=== PATIENT | female | born 1950 | race Caucasian/White ===

== ENCOUNTER 2021-09-27 14:48 | Outpatient (REF) | payer MEDICARE, SELFPAY ==
--- NOTE | ~2021-09-27 | CT_ITS ---
EXAMINATION: CT CHEST SCREENING CLINICAL INFORMATION: 53 pack year history. Current smoker. COMPARISON: Previous chest x-ray February [address] November 2013. TECHNIQUE: Multidetector volumetric CT imaging of the chest is performed without contrast using low dose technique. Additional 2D coronal and sagittal reformatted images and axial 3D maximum intensity projection (MIP) images are generated on the CT workstation. This CT examination was performed using dose optimization techniques as appropriate, variously including the following: *Automated exposure control *Adjustment of mA and/or kV according to patient size (this includes techniques or standardized protocols for targeted exams where dose is matched to indication/reason for exam; i.e. extremities or head) *Use of iterative reconstruction technique DLP: 43 mGy-cm FINDINGS: LUNGS: There is evidence of mild paraseptal emphysema. There are postsurgical changes to the left upper lobe. There is a 4 mm left upper lobe nodule axial image 131 series 5. There is a 4 mm right upper lobe nodule axial image 1:30 series 5. These are new from 2013 exam. There is a 3 mm peripheral or subpleural right lower lobe nodule axial image 376 series 5 that is stable. There is an area of increased groundglass attenuation and cystic change in the posterior segment of the right upper lobe adjacent to the major fissure measuring approximately 1.5 x 2 cm axial image 172 series 5. This is similar to November 2013 exam. The remaining areas of increased groundglass attenuation are no longer seen. There is scarring or subsegmental atelectasis in the right middle lobe and in the lingula at the lung bases. MEDIASTINUM: The left lobe of the thyroid gland is prominent and there are calcifications. This is similar in size to November 2013 exam. Calcifications appear increased. There are small mediastinal lymph nodes. No enlarged lymph nodes are seen. There is coronary artery calcification. The heart does not appear enlarged. The thoracic aorta is normal in caliber. There is no pericardial effusion. PLEURA: There is no pleural effusion. No pleural mass or thickening. AXILLA: No lymphadenopathy. UPPER ABDOMEN: There is evidence of atherosclerotic disease. OSSEOUS STRUCTURES: Degenerative changes of the spine. CT/CT lung screening IMPRESSION: Emphysema. Postsurgical changes to the left upper lobe. Two new upper lobe 4 mm nodules. Stable 3 mm peripheral or subpleural right lower lobe nodule. Stable area of groundglass attenuation and cystic change in the posterior segment of the right upper lobe adjacent to the major fissure. Prominent left lobe of the thyroid gland with increasing calcification. ASSESSMENT: Lung-RADS category 2S. RECOMMENDATION: Annual low-dose chest CT follow-up recommended. Follow-up thyroid ultrasound recommended.
== END 2021-09-27 14:49 | disposition home or self-care (01) ==
LOC: HO.CT 14:48
PROVIDERS: Visit Provider Physician Assistant Medical
DX: F17.210 Nicotine dependence, cigarettes, uncomplicated (principal); Z71.6 Tobacco abuse counseling
CPT/HCPCS: 71271; G0296

== ENCOUNTER 2021-10-30 16:21 | Emergency (ER) | payer MEDICARE, SELFPAY ==
--- NOTE | ~2021-10-30 | CT_ITS ---
EXAMINATION: CT ANGIOGRAM HEAD CT ANGIOGRAM NECK CLINICAL INFORMATION: Carotid stenosis. Hypertension. COMPARISON: CT neck from 11/05/2012. TECHNIQUE: Initial noncontrast vault attendant imaging of the head and neck was performed. Noncontrast head CT was also performed. Test bolus sequences followed by intravenous administration 70 mL of Omnipaque 350. Helical imaging was performed in the axial plane from the aortic arch to the skull vertex. Delayed postcontrast imaging of the head was also performed. The data was processed at the development technologist's workstation for generation of MIP sequences. Angled MIPs and volume rendered reformatted images were also generated at an offline 3D workstation. Stenoses are assessed in accordance with NASCET criteria unless otherwise indicated. This CT examination was performed using dose optimization techniques as appropriate, variously including the following: *Automated exposure control. *Adjustment of mA and/or kV according to patient size (this includes techniques or standardized protocols for targeted exams where dose is matched to indication/reason for exam; i.e. extremities or head). *Use of iterative reconstruction technique. DLP: 2127 mGy-cm FINDINGS: CT Head: There is no evidence of acute intracranial hemorrhage or edematous territorial infarction. A few foci of hypoattenuation in the periventricular and deep white matter are consistent with mild microangiopathy. Hart-white matter differentiation is preserved. Proportional prominence of the ventricles and sulcal spaces. No evidence for obstructive hydrocephalus. No abnormal mass effect or midline shift. No extra-axial fluid collections. No pathologic intra-axial enhancement or regional oligemia. No acute soft tissue or osseous abnormalities. Mild mucosal thickening of the paranasal sinuses. The mastoid air cells and middle ear cavities are clear. CT Neck: A heterogeneous 4 cm lesion along the inferior pole of the left thyroid lobe with internal coarse calcifications has mildly increased in size compared to 2013 (previously 3.5 cm). The remaining cervical soft tissues are within normal limits. Moderate degenerative disc disease at C6-C7. Mild degenerative disc disease at all additional cervical levels. CT Upper Chest: The visualized lung apices are notable for moderate paraseptal and centrilobular emphysema. Neck CTA: Aortic Arch: Moderate concentric hypoattenuating wall thickening of the aortic arch. This is progressed since 2013 with increasing irregular wall calcification and multifocal small atheromatous ulcerations. Two vessel branching pattern of the arch with left common carotid artery arising from the brachiocephalic trunk. Great Vessel Origins: There is moderate concentric hypoattenuating wall thickening of the proximal great vessels. No overt stenosis of the brachiocephalic trunk. There is 70% stenosis of the origin of the left subclavian artery. Beyond the stenosis, there is eccentric lipid rich atheromatous disease within the lateral wall of the left subclavian artery with a moderate wall ulceration. Right Common Carotid Artery: Moderate concentric hypoattenuating wall thickening with scattered wall calcifications. No overt flow-limiting stenosis or occlusion. Cervical Right Internal Carotid Artery: Retropharyngeal course. Calcific atherosclerotic disease of the carotid bulb and proximal internal carotid artery causing less than 50% stenosis. Left Common Carotid Artery: Moderate concentric hypoattenuating wall thickening with scattered wall calcifications. No overt flow-limiting stenosis or occlusion. Cervical Left Internal Carotid Artery: Retropharyngeal course. Calcific atherosclerotic disease of the carotid bulb and proximal internal carotid artery causing less than 50% stenosis. Cervical Right Vertebral Artery: Calcific atherosclerotic disease causes mild stenosis of the origin. No additional focal stenosis or occlusion. Cervical Left Vertebral Artery: Dominant. No focal stenosis or occlusion. Brain CTA: Intracranial Internal Carotid Arteries: Calcific atherosclerotic disease of the intracranial internal carotid arteries without occlusion or flow-limiting stenosis. Right Anterior Cerebral Artery: Normal A1 segment. Normal opacification of the distal SHRUTI segments. Left Anterior Cerebral Artery: Normal A1 segment. Normal opacification of the distal SHRUTI segments. Anterior Communicating Artery: Normal. Right Middle Cerebral Artery: Normal M1 segment of the MCA without focal stenosis or occlusion. Mild irregularities of the distal MCA branches. Otherwise, normal arborization of the distal segments. Left Middle Cerebral Artery: Normal M1 segment of the MCA without focal stenosis or occlusion. Mild irregularities of the distal MCA branches. Otherwise, normal arborization of the distal segments. Right Vertebral Artery: The V4 segment largely terminates as the posterior inferior cerebellar artery. The vertebral artery is threadlike beyond the takeoff of the PICA. Left Vertebral Artery: Normal V4 segment. Normal opacification of the proximal segments of the posterior inferior cerebellar artery. Basilar Artery: Normal without focal stenosis or occlusion. Normal appearance of the proximal superior cerebellar arteries. Right Posterior Cerebral Artery: The P1 segment is diminutive. origin of the CAR SALTER with robust opacification of the posterior communicating artery. Mild irregular stenoses of the distal CAR SALTER segments. Left Posterior Cerebral Artery: Mild irregular stenoses of the P1 and P2 segment without flow-limiting stenosis or occlusion. Mild irregular stenoses of the distal CAR SALTER segments. Normal opacification of the superior sagittal, straight, transverse, and sigmoid sinuses. CT/CT angio head neck IMPRESSION: 1. No evidence of acute intracranial hemorrhage or edematous territorial infarction. Mild underlying migraine angiopathy and generalized cerebral volume loss. 2. CTA of the head and neck without proximal occlusion. 3. There is moderate concentric hypoattenuating wall thickening of the aortic arch, carotid arteries, and subclavian arteries. This change demonstrates scattered coarse wall calcifications consistent with at least a degree of atherosclerotic disease. However, it be difficult to exclude other superimposed vasculitides/vasculopathies given the overall appearance. 4. The underlying vascular disease leads to 70% stenosis of the origin of the left subclavian artery. No additional flow-limiting stenoses or proximal occlusions. There are less than 50% stenoses of the carotid arteries bilaterally. 5. Mild multifocal irregular narrowings of the distal branches of the MCAs and strickler attendant. 6. There is a 4 cm heterogeneous lesion in the left thyroid lobe that is mildly increased in size compared to 2013. If not previously evaluated, this could be further characterized with thyroid ultrasound.
[2021-10-30 18:11] VITALS: BP 209/86; PULSE 99; RESP 17; TEMP 36.5; O2SAT 98; BMI 26.2
--- NOTE | 2021-10-30 18:17 | ECG_ITS ---
Test Reason : HYPERTENSION Blood Pressure : / mmHG Vent. Rate : 089 BPM Atrial Rate : 089 BPM P-R Int : 160 ms QRS Dur : 094 ms QT Int : 384 ms P-R-T Axes : 072 067 038 degrees QTc Int : 467 ms Normal sinus rhythm Possible Left atrial enlargement Nonspecific ST and T wave abnormality Abnormal ECG When compared with ECG of 28-FEB-2016 09:00, ST now depressed in Lateral leads Referred By: Generic ED Physician Electronically Signed By:KIA SIMMS MD
[2021-10-30 18:26] LABS: MANUAL DIFF FLAG NO
[2021-10-30 18:41] LABS: Anion Gap 13 (12-20); Blood Urea Nitrogen 22 mg/dL (9-16); Carbon Dioxide 28 mmol/L (22-29); Chloride 103 mmol/L (96-108); Creatinine Clr Calc Pharmacy 46.3; Estimated Glomerular Filt Rate > 60; Glucose Random 95 mg/dL (60-115); Potassium 4.2 mmol/L (3.3-5.1); Sodium 140 mmol/L (135-145)
[2021-10-30 18:48] LABS: Basophils Absolute Auto 0.1 X10*3/uL (0.0-0.2); Basophils Percent Auto 0.5 % (0-2); Eosinophils Absolute Auto 0.2 X10*3/uL (0.0-0.4); Eosinophils Percent Auto 1.6 % (0-4); Hemoglobin 13.6 g/dl (12.0-16.0); Imm Gran Abs Auto 0.08 X10*3/uL (0.00-0.03); Imm Gran Pct Auto 0.6 % (0.0-0.4); Lymphocytes Percent Auto 23.5 % (20-40); Mean Corpuscular HGB Conc 33.2 g/dl (31.0-35.0); Mean Corpuscular Hemoglobin 31.1 pg (27.0-33.0); Mean Corpuscular Volume 93.6 fL (80.0-98.0); Mean Platelet Volume 9.6 fL (9.4-12.3); Monocytes Absolute Auto 0.9 X10*3/uL (0.1-1.2); Monocytes Percent Auto 7.1 % (2-11); Neutrophils Absolute Auto 8.4 x10*3/uL (2.0-8.3); Neutrophils Percent Auto 66.7 % (45-73); Platelet Count 321 X10*3/uL (160-400); Red Blood Count 4.38 X10*6/uL (4.20-5.50); Red Cell Distribution Width 13.2 % (11.0-16.0); Troponin-I High Sensitivity < 3.5 ng/L (<3.5-17.0); White Blood Count 12.7 X10*3/uL (4.8-10.8)
[2021-10-30 18:58] LABS: Prothrombin Time 11.7 SEC (9.9-13.0)
[2021-10-30 19:01] LABS: Partial Thromboplastin Time 37.9 SEC (24.1-38.0)
[2021-10-30 19:09] VITALS: BP 164/60; PULSE 85; RESP 14; O2SAT 97
--- NOTE | 2021-10-30 19:39 | ED.GENADULT ---
HPI - General Adult General Chief complaint: General Medical Stated complaint: numbness of R side of face Time Seen by Provider: 10/30/21 18:33 Source: patient Mode of arrival: ambulatory Limitations: no limitations History of Present Illness HPI narrative: 70 year old female with history of GERD, depression, hyperlipidemia, living, hypercholesterolemia, unknown carotid artery stenosis presents to ED for multiple weeks of left facial numbness and at times blurry vision. Patient denies ever having any black her in covering of the eye or loss of vision. Patient denies ever having slurred speech, facial droop, dizziness, or paralysis of extremities. Today patient's blood pressure was elevated so she called her primary care clinic and they told her to come to the ED. patient blood pressure has systolic over 200. Presently patient is asymptomatic. Patient had no symptoms today. Related Data Allergies Allergy/AdvReac Type Severity Reaction Status Date / Time No Known Allergies Allergy Mild NOT Verified 10/30/21 18:16 APPLICABLE Review of Systems Review of Systems: Left-sided numbness and blurry vision of the eyes the past couple of weeks. No new symptoms. Yes all other systems are reviewed and are negative [facility] Past Medical History Medical History (Updated 10/31/21 @ 00:01 by Syeda Lopez) Depression GERD (gastroesophageal reflux disease) History of COVID-19 (~2020) Hypercholesterolemia Hyperlipidemia IFG (impaired fasting glucose) Osteopenia (~2003) Paraseptal emphysema Personal history of nicotine dependence Vitamin D deficiency Surgical History (Updated 09/27/21 @ 14:39 by Cheli Eagle PA-C) History of colonoscopy History of esophagogastroduodenoscopy (EGD) History of lung biopsy History of tubal ligation Family History Family History (Updated 08/15/21 @ 13:31 by Cheli Eagle PA-C) Father CVA (cerebral vascular accident) Mother DM2 (diabetes mellitus, type 2) Social History Social History Advance Directives: No Advance Directives Information Provided: No Physical Exam ED Vital Signs: Vital Signs - 24 hr 10/30/21 18:11 10/30/21 19:09 10/30/21 20:27 Temperature 97.7 F Pulse Rate 99 85 80 Respiratory Rate 17 14 12 Blood Pressure 209/86 H 164/60 H 139/48 L Pulse Oximetry 98 97 98 10/30/21 21:58 Temperature 98.2 F Pulse Rate 74 Respiratory Rate 12 Blood Pressure 163/70 H Pulse Oximetry 96 BMI result Body Mass Index 26.2 Const General: cooperative, healthy appearing, comfortable, no acute distress, well developed, alert, awake and Physically active Orientation/consciousness: oriented to time and patient oriented x3 [facility] Head: Yes normal to inspection, Yes No palpable skull fracture present, Yes normocephalic, Yes atraumatic and No abrasion Eyes General: appearance normal, both eyes and all related structures Neck Neck: Yes normal visual inspection, Yes full ROM, Yes no lymphadenopathy, Yes no meningeal signs, Yes trachea midline, Yes supple, No anterior neck swelling and No tender Chest Chest palpation & inspection: normal inspection of the chest and normal palpation of entire chest wall Resp Effort & Inspection: normal respiratory effort and able to speak in complete sentences Auscultation: clear to auscultation bilaterally Cardio Jugular venous distension: no JVD Heart sounds: S1 normal heart sound present and S2 normal heart sound present GI Inspection: Yes normal to inspection and No abdominal wall ecchymosis Palpation (GI): Soft to palpation, not firm, nontender, no guarding and not rigid General: No CVA tenderness and Yes no CVA tenderness Back/Spine/Pelvis Back: no CVA tenderness and No CVA tenderness Skin General skin exam: no rashes or lesions noted and elasticity normal Neuro Other: Negative facial droop. Negative slurred speech. All extremities equal strength/+. [id number] rapid hand movement intact. Negative Romberg. Negative pronator drift. General: oriented to time, patient oriented x3, gait normal, no meningeal signs and CN's II-XI intact bilaterally Cranial nerves: Yes CN's II-XII intact bilaterally NIH Stroke Scale Internal: Initial- Upon Arrival Level of Consciousness: Alert Level of Consciousness Questions: Answers both questions correctly Level of Consciousness Commands: Performs both tasks correctly Best Gaze: Normal Visual: No visual loss Facial Palsy: Normal Motor Arm (Right): No drift Motor Arm (Left): No drift Motor Leg (Right): No drift Motor Leg (Left): No drift Limb Ataxia: Absent Sensory: Normal Best Language: No aphasia Dysarthia: Normal Extinction and Inattention: No abnormality Score: 0 Course Course Course Narrative: Patient presently asymptomatic. Blood pressure over 200. Labetalol ordered. Will do a head CT scan although patient having symptoms for weeks. CT scan will be done due to elevated blood pressure. Also will do CT due to patient states history of carotid stenosis. Patient is on metoprolol and states for irregular her BP and not high blood pressure. Patient states her blood pressure is usually 120 and no diagnose history of high blood pressure. EKG shows normal sinus rhythm. Reevaluation(s) Reevaluation #1: First troponin negative. Blood pressure improved without any medical intervention. labetolol was not given. Patient neuro exam is intact. Time: 20:02 Reevaluation #2: Unable to access old EKGs in our system. Patient's primary care provider is Koko Montgomery who is affiliated with [employer] and is in [facility] and the clinic is closed. Patient denies any cardiac symptoms Time: 20:40 Reevaluation #3: Neck CTA shows no acute occlusion. It shows just chronic carotid stenosis less than 50%. Also left subclavian artery stenosis 70%. Patient has no dizziness. troponin is negative. Patient presently is asymptomatic and sleeping comfortably in bed. Patient states no chest pain or shortness of breath. Patient does not have any neuro symptoms. NIH score 0. Patient informed to follow-up primary care provider. Patient given copy of labs and imaging. Case discussed with Dr. Panda who agreed with plan. Time: 23:36 Medical Decision Making MDM Narrative Medical decision making narrative: Hypertension Lab Data Result diagrams: 10/30/21 18:21 10/30/21 18:21 Labs: Lab Results 10/30/21 10/30/21 10/30/21 Range/Units 18:21 18:21 18:21 WBC 12.7 H (4.8-10.8) X10*3/uL RBC 4.38 (4.20-5.50) X10*6/uL Hgb 13.6 (12.0-16.0) g/dl Hct 41.0 (37.0-47.0) % MCV 93.6 (80.0-98.0) fL MCH 31.1 (27.0-33.0) pg MCHC 33.2 (31.0-35.0) g/dl RDW 13.2 (11.0-16.0) % Plt Count 321 (160-400) X10*3/uL MPV 9.6 (9.4-12.3) fL Immature Gran % (Auto) 0.6 H (0.0-0.4) % Neut % (Auto) 66.7 (45-73) % Lymph % (Auto) 23.5 (20-40) % [place] % (Auto) 7.1 (2-11) % Eos % (Auto) 1.6 (0-4) % Baso % (Auto) 0.5 (0-2) % Lymph # (Auto) 3.0 (1.2-4.9) X10*3/uL [place] # (Auto) 0.9 (0.1-1.2) X10*3/uL Eos # (Auto) 0.2 (0.0-0.4) X10*3/uL Baso # (Auto) 0.1 (0.0-0.2) X10*3/uL Abs Immat Gran (auto) 0.08 H (0.00-0.03) X10*3/uL Absolute Neuts (auto) 8.4 H (2.0-8.3) x10*3/uL Absolute Nucleated RBC 0.000 (0.0-0.012) X10*3/uL Nucleated RBC % (auto) 0.0 (0.0-0.2) /100WBC PT (9.9-13.0) SEC INR (0.9-1.1) APTT (24.1-38.0) SEC Sodium 140 (135-145) mmol/L Potassium 4.2 (3.3-5.1) mmol/L Chloride 103 (96-108) mmol/L Carbon Dioxide 28 (22-29) mmol/L Anion Gap 13 (12-20) BUN 22 H (9-16) mg/dL Creatinine 0.87 (0.5-1.4) mg/dL Estim Creat Clear Calc 46.3 Estimated GFR > 60 Random Glucose 95 (60-115) mg/dL Calcium 10.0 (8.4-10.2) mg/dL Troponin I High Sens < 3.5 (<3.5-17.0) ng/L 10/30/21 10/30/21 Range/Units 18:44 21:21 WBC (4.8-10.8) X10*3/uL RBC (4.20-5.50) X10*6/uL Hgb (12.0-16.0) g/dl Hct (37.0-47.0) % MCV (80.0-98.0) fL MCH (27.0-33.0) pg MCHC (31.0-35.0) g/dl RDW (11.0-16.0) % Plt Count (160-400) X10*3/uL MPV (9.4-12.3) fL Immature Gran % (Auto) (0.0-0.4) % Neut % (Auto) (45-73) % Lymph % (Auto) (20-40) % [place] % (Auto) (2-11) % Eos % (Auto) (0-4) % Baso % (Auto) (0-2) % Lymph # (Auto) (1.2-4.9) X10*3/uL [place] # (Auto) (0.1-1.2) X10*3/uL Eos # (Auto) (0.0-0.4) X10*3/uL Baso # (Auto) (0.0-0.2) X10*3/uL Abs Immat Gran (auto) (0.00-0.03) X10*3/uL Absolute Neuts (auto) (2.0-8.3) x10*3/uL Absolute Nucleated RBC (0.0-0.012) X10*3/uL Nucleated RBC % (auto) (0.0-0.2) /100WBC PT 11.7 (9.9-13.0) SEC INR 1.0 (0.9-1.1) APTT 37.9 (24.1-38.0) SEC Sodium (135-145) mmol/L Potassium (3.3-5.1) mmol/L Chloride (96-108) mmol/L Carbon Dioxide (22-29) mmol/L Anion Gap (12-20) BUN (9-16) mg/dL Creatinine (0.5-1.4) mg/dL Estim Creat Clear Calc Estimated GFR Random Glucose (60-115) mg/dL Calcium (8.4-10.2) mg/dL Troponin I High Sens 7.7 D (<3.5-17.0) ng/L ECG Data Interpretation: Normal sinus rhythm. Reticular rate 89. Pr interval 160. QRS 94. QTC 467. Negative STEMI Discharge Plan Discharge Clinical Impression: Hypertension Patient Disposition: Home, Self-Care Instructions: Hypertension in the Older Adult (ED) Additional Instructions: Your CT scan of the head came back negative for stroke. CT scan the day of the neck does not show any acute artery occlusion that needs intervention. Your electrolytes and kidney function are normal. Presenting EKG and blood work not showing heart attack. You will be discharged with copies of labs and imagings. Please follow-up with your primary care provider. Return to the ED immediately for slurred speech, facial droop, paralysis of extremities, loss of vision, dizziness, headache, chest pain, shortness of breath, nausea, vomiting, or any other concerning symptoms. You are already taking metoprolol please contact your medical provider for further management of high blood pressure. Interventions: ED Discharge Assessment Last Done: 10/30/21 23:56 Discharge Date/Time: 10/30/21 23:59 Print Language: Turkmen
[2021-10-30] MEDS: iohexoL 350 MG/ML 100 ML INFUS..BTL IV (19:57)
[2021-10-30 20:27] VITALS: BP 139/48; PULSE 80; RESP 12; O2SAT 98
[2021-10-30 21:58] VITALS: BP 163/70; PULSE 74; RESP 12; TEMP 36.8; O2SAT 96
[2021-10-30 22:27] LABS: Troponin-I High Sensitivity 7.7 ng/L (<3.5-17.0)
== END 2021-10-30 23:59 | disposition home or self-care (01) ==
PROVIDERS: Physician Assistant; Emergency Provider Emergency Medicine Emergency Medical Services; PCP Internal Medicine
DX: I10 Essential (primary) hypertension (principal); R20.0 Anesthesia of skin; I77.1 Stricture of artery; Z79.899 Other long term (current) drug therapy
CPT/HCPCS: 36415; 70496; 70498; 80048; 84484; 85025; 85610; 85730; 93005; 96374; 99284; Q9967

== ENCOUNTER 2021-11-19 09:19 | Outpatient (REF) | payer MEDICARE, SELFPAY ==
--- NOTE | ~2021-11-19 | MR_ITS ---
MRI OF THE BRAIN WITHOUT IV CONTRAST INDICATION: Left-sided facial numbness. COMPARISON: CTA head and neck 10/30/2021. TECHNIQUE: Multiplanar multisequence MR imaging of the brain was obtained without IV contrast. FINDINGS: There is no hydrocephalus, extra-axial surface collection, or herniation. There is mild chronic microangiopathy. The major flow voids at the skull base are preserved. There is no acute infarct on diffusion-weighted imaging. There is no intracranial hemorrhage on the gradient recalled echo acquisition. The midline structures are normal. The cerebellar tonsils are normally positioned. The cerebellum and brainstem are normal. The craniocervical junction is normal. Osseous marrow signal intensity is homogenous. The visualized soft tissues are unremarkable. MR/MR head/brain wo con IMPRESSION: No acute intracranial findings. No acute infarcts. Mild chronic microangiopathy.
== END 2021-11-19 09:20 | disposition home or self-care (01) ==
LOC: HO.MRI 09:19
PROVIDERS: Visit Provider Internal Medicine
DX: R20.0 Anesthesia of skin (principal)
CPT/HCPCS: 70551

== ENCOUNTER 2022-03-10 07:30 | Day surgery (SDC) | payer MEDICARE, SELFPAY ==
[2022-03-10 07:37] VITALS: BMI 24.2
[2022-03-10 08:00] VITALS: BP 134/63; PULSE 74; RESP 16; TEMP 36.3; O2SAT 99
[2022-03-10] MEDS: Lactated Ringers 1,000 ML 50 ML IVCONT (08:07)
--- NOTE | 2022-03-10 08:13 | P.CONAN_ITS ---
HPI - Anesthesia Eval Consult details Narrative: 71 yo female patient for colonoscopy PMFSH Active Problems Active Problems: All Active Problems (Updated 03/10/22 @ 07:45 by Shikha Ibrahim RN) Restrictive lung disease (Acute) Enlarged thyroid gland (Acute) Personal history of nicotine dependence (Acute) Paraseptal emphysema (Acute) Past Medical History Medical History Depression GERD (gastroesophageal reflux disease) History of COVID-19 (~2020) HTN (hypertension) Hypercholesterolemia Hyperlipidemia IFG (impaired fasting glucose) Interstitial lung disease Osteopenia (~2003) Paraseptal emphysema Personal history of nicotine dependence Vitamin D deficiency Family History Family History Father CVA (cerebral vascular accident) Mother DM2 (diabetes mellitus, type 2) Family history of problems with anesthesia: No Surgical History Surgical History History of colonoscopy History of esophagogastroduodenoscopy (EGD) History of lung biopsy History of tubal ligation Hx of dilation and curettage History of Problems with Anesthesia: No Social History Social History (Updated 03/10/22 @ 08:22 by Rebekah He MD) Patient Tobacco Use Status: Current everyday Tobacco user Tobacco use type: Cigarette Cigarettes Per Day: 15 Smoked in Last 30 Days: Yes Use of substances other than those prescribed or required for medical reasons: No Are you DNR?: No Advance Directives: No Advance Directives Information Provided: Yes Meds Allergies Allergy/AdvReac Type Severity Reaction Status Date / Time simvastatin Allergy Unknown Verified 03/10/22 07:51 sulfamethoxazole Allergy Unknown Verified 03/10/22 07:51 [From Bactrim] trimethoprim [From Bactrim] Allergy Unknown Verified 03/10/22 07:51 Active Medications: Current Medications Lactated Ringer's (Lr) 1,000 mls @ 50 mls/hr IVCONT .Q20H HRASHA Last Admin: 03/10/22 08:07 Dose: 50 mls/hr Ondansetron HCl (Ondansetron Hcl 4 Mg/2 Ml Vial) 4 mg IVPUSH ONCE PRN PRN Reason: Nausea and Vomiting Sodium Biphosphate/Sodium Phosphate (Sodium Phosphate,[place]-Dibasic 133 Ml Enema) 133 ml CA ONCE PRN PRN Reason: Poor Colonoscopy Prep Results Home Medications Medication Instructions Recorded Confirmed Last Taken Type aspirin 81 mg tablet,delayed 81 mg PO DAILY 03/04/22 03/04/22 03/08/22 History release calcium carbonate 500 mg calcium 500 mg PO DAILY 03/04/22 03/04/22 Unknown History (1,250 mg) chewable tablet cholecalciferol (vitamin D3) 25 25 mcg PO DAILY 03/04/22 03/04/22 Unknown History mcg (1,000 unit) capsule (Vitamin D3) cyclosporine 0.05 % eye drops in a 1 drp ophthalmic (eye) Q12H 03/04/22 03/04/22 Unknown History dropperette (Restasis) fluoxetine 20 mg capsule 1 cap PO DAILY 03/04/22 03/04/22 03/10/22 06:30 History fluticasone 113 mcg-salmeterol 14 1 puff inhalation BID 03/04/22 03/04/22 03/10/22 06:30 History mcg/actuation breath activated powdr hydrochlorothiazide 12.5 mg tablet 12.5 mg PO DAILY 03/04/22 03/04/22 Unknown History metoprolol succinate 25 mg 1 tab PO DAILY 03/04/22 03/04/22 03/10/22 06:30 History tablet,extended release 24 hr omeprazole 20 mg capsule,delayed 1 cap PO DAILY 03/04/22 03/04/22 03/10/22 06:30 History release Exam Exam Date and Time: March 10, 2022812 Height,Weight and Vital Signs: Height 4 ft 11 in Weight 54.431 kg Last Vital Signs Temp 97.3 F 03/10/22 08:00 Pulse 74 03/10/22 08:00 Resp 16 03/10/22 08:00 BP 134/63 03/10/22 08:00 Pulse Ox 99 03/10/22 08:00 O2 Del Method 03/10/22 08:00 Airway Mallampati Class: I TM Dist: >3cm Neck ROM: Full Loose/Missing/Broken Teeth: Yes (Some missing ) Heart: RRR Lungs: CTAB Assessment and Plan Assessment Anesthesia Assessment: Anesthesia Plan Discussed and Chart Reviewed Final Anesthetic Review Family History of Problems with Anesthesia: No History of Problems with Anesthesia: No NPO: Yes ASA Class: III Final Preanesthetic Review: No Changes in Pt Med Stat, Meds/Allgs Chart Reviewed, Consent Obtained/Reviewed and Anes Risks/Benef Reviewed Patient Risk: Intermediate Procedure Risk: Low Assessment/Block/Sedation in SS: Assess/Block/Sedation-SS Anesthetic Plan Anesthetic Plan: MAC: Disposition: Standard PACU
[2022-03-10 09:33] VITALS: BP 115/54; PULSE 78; RESP 16; TEMP 36.2; O2SAT 97
--- NOTE | 2022-03-10 09:36 | P.BOP_ITS ---
Brief Operative Note Date of Service: 03/10/22 Pre-op diagnosis: Screening Post-op diagnosis: other (Diverticulosis) Procedure: Colonoscopy to the cecum and TI Surgeon: Paul Hdez Anesthesia: MAC Was an Knife Setter Grinder Machine used for this Procedure?: No Estimated blood loss (mL): 0 Pathology: none sent Condition: stable Disposition: PACU
[2022-03-10 09:48] VITALS: BP 141/60; PULSE 73; RESP 18; TEMP 36.2; O2SAT 98
--- NOTE | 2022-03-10 21:30 | OP_ITS ---
SURGEON: Paul Hdez MD INDICATIONS: The patient presents for evaluation of colorectal cancer screening. Full consent has been obtained from her for this, including risks of bleeding and perforation. PREOPERATIVE DIAGNOSIS: Colorectal cancer screening. POSTOPERATIVE DIAGNOSIS: PROCEDURE PERFORMED: Colonoscopy to the cecum and terminal ileum. ESTIMATED BLOOD LOSS: COMPLICATIONS: ANESTHESIA: Medication used; monitored anesthesia care. ASSISTANTS: SPECIMENS: POSTOPERATIVE DIAGNOSES: Colorectal cancer screening, diverticulosis, and internal hemorrhoids. DESCRIPTION OF PROCEDURE: The patient was placed in the left lateral decubitus position. The digital rectal exam revealed no abnormalities. The Olympus video pediatric colonoscope was entered into the rectum and advanced easily to the cecum. Once in the cecum, I did identify normal-appearing cecal pouch with appendiceal orifice and a normal-appearing ileocecal valve. The terminal ileum was cannulated and appeared normal. The scope withdrawn back in the colon. The entire cecum and ileocecal valve appeared normal. Scope was then slowly withdrawn assessing all mucosal surfaces carefully. Preparation was excellent. I did not visualize any sign of polyps, colitis, nor angiodysplasia. There was a moderate amount of sigmoid diverticulosis. In the rectum, scope was retroflexed visualizing internal hemorrhoids, but no other pathology. The rectal mucosa appeared normal. The scope was straightened and withdrawn from the patient. She tolerated the procedure well and was returned to the recovery area in stable condition. IMPRESSION: 1. Diverticulosis. 2. Internal hemorrhoids. PLAN: Given the negative exam and her age, I do not think she will need any further screening colonoscopies in the future. She will otherwise see me on a p.r.n. basis. She was advised that she could resume her aspirin today. MD EVERETT Adams/LETITIA / [id number] MTDD
== END 2022-03-10 10:36 | disposition home or self-care (01) ==
PROVIDERS: PCP Internal Medicine; Visit Provider Internal Medicine
PROC: 0DJD8ZZ Inspection of Lower Intestinal Tract, Via Natural or Artificial Opening Endoscopic (ICD-10-PCS; CPT 45378; principal; 2022-03-10 08:30)
DX: Z12.11 Encounter for screening for malignant neoplasm of colon (principal); K57.30 Diverticulosis of large intestine without perforation or abscess without bleeding; K64.8 Other hemorrhoids; K21.9 Gastro-esophageal reflux disease without esophagitis; I10 Essential (primary) hypertension; J44.9 Chronic obstructive pulmonary disease, unspecified; I49.9 Cardiac arrhythmia, unspecified; Z79.82 Long term (current) use of aspirin; Z79.51 Long term (current) use of inhaled steroids; Z79.899 Other long term (current) drug therapy; Z88.8 Allergy status to other drugs, medicaments and biological substances; F17.210 Nicotine dependence, cigarettes, uncomplicated
CPT/HCPCS: G0121

== ENCOUNTER 2022-10-22 12:41 | Outpatient (REF) | payer MEDICARE, SELFPAY ==
--- NOTE | ~2022-10-22 | CT_ITS ---
EXAMINATION: CT CHEST SCREENING CLINICAL INFORMATION: Current smoker. 60 pack year history. COMPARISON: Previous chest CT scans most recent September 2021 TECHNIQUE: Multidetector volumetric CT imaging of the chest is performed without contrast using low dose technique. Additional 2D coronal and sagittal reformatted images and axial 3D maximum intensity projection (MIP) images are generated on the CT workstation. This CT examination was performed using dose optimization techniques as appropriate, variously including the following: *Automated exposure control *Adjustment of mA and/or kV according to patient size (this includes techniques or standardized protocols for targeted exams where dose is matched to indication/reason for exam; i.e. extremities or head) *Use of iterative reconstruction technique DLP: 129 mGy-cm FINDINGS: LUNGS: Mild paraseptal emphysema. Postsurgical changes to the left upper lobe. Small pulmonary nodules are stable. Largest pulmonary nodule measures 4 to 5 mm in the left upper lobe axial image 96 series 5. Stable areas of cystic and reticular change, largest in the right upper lobe adjacent to the major fissure axial image 139 series 5. MEDIASTINUM: Small calcified left thyroid nodules are stable. Upper normal heart size. Moderate coronary artery calcification. No pericardial effusion. Normal caliber thoracic aorta. Small mediastinal lymph nodes. No enlarged lymph nodes. CORONARY ARTERY CALCIFICATION: None visualized on this study. PLEURA: There is no pleural effusion. No pleural mass or thickening. AXILLA: No lymphadenopathy. UPPER ABDOMEN: Unremarkable OSSEOUS STRUCTURES: Unremarkable. CT/CT lung screening IMPRESSION: Emphysema. Stable pulmonary nodules. Stable areas of cystic and reticular change, largest right upper lobe. ASSESSMENT: Lung-RADS category 2: Benign RECOMMENDATION: Annual low-dose chest CT follow-up recommended.
== END 2022-10-22 12:42 | disposition home or self-care (01) ==
LOC: HO.CT 12:41
PROVIDERS: PCP Internal Medicine; Visit Provider Physician Assistant Medical
DX: Z12.2 Encounter for screening for malignant neoplasm of respiratory organs (principal); F17.210 Nicotine dependence, cigarettes, uncomplicated
CPT/HCPCS: 71271

== ENCOUNTER 2023-04-14 14:22 | Outpatient (AMB) | payer MEDICARE, SELFPAY ==
[2023-04-14 14:27] VITALS: BMI 25.2
--- NOTE | 2023-04-14 14:27 | A.OFFVIS_ITS ---
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 Pt states especially going uphill or upstairs is harder for her. She states she holds on to railings or doesnt walk at all. Pt also states spinal/back issues which prevent her from walking. 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 She had a outpatient nurse practitioner visit by her insurance company. There was a report of an unusual reading on which she believes the left lower extremity. Upon discussion with her she is able to ambulate several blocks and then experiences some calf pain. Of note she continues to smoke about a pack per day. She is being maintained on an aspirin and statin. She now presents to us for vascular evaluation. [facility] Medical History HTN (hypertension) Interstitial lung disease History of COVID-19 (~2020) Hyperlipidemia Depression Vitamin D deficiency IFG (impaired fasting glucose) GERD (gastroesophageal reflux disease) Hypercholesterolemia Paraseptal emphysema Personal history of nicotine dependence Osteopenia (~2003) Surgical History Hx of dilation and curettage History of lung biopsy History of esophagogastroduodenoscopy (EGD) History of colonoscopy History of tubal ligation Family History Father CVA (cerebral vascular accident) Mother DM2 (diabetes mellitus, type 2) Social History Patient Tobacco Use Status: Current everyday Tobacco user Tobacco use type: Cigarette Cigarettes Per Day: 15 Review of Systems Const All systems reviewed & are unremarkable except as noted in HPI and below Reports no additional complaints ENT Reports Normal hearing present Card Denies chest pain, Denies chest pain at rest, Denies chest pain with activity and Denies pedal edema Resp Denies cough GI Denies abdominal pain Musc Denies abnormal gait, Denies muscle cramps and Denies radiating pain into limb Skin/Breast Denies skin ulcer and Denies wounds Neuro Reports Normal hearing present and Denies abnormal gait Psych Reports no additional complaints Physical Exam Vital Signs: BMI result Body Mass Index 25.2 Const General: cooperative, healthy appearing and comfortable Orientation/consciousness: oriented to person, oriented to place and oriented to time HEENT Head: Yes normal to inspection Neck Neck: Yes normal visual inspection Carotids: no bruits Chest Chest palpation & inspection: normal inspection of the chest Resp Effort & Inspection: normal respiratory effort and able to speak in complete sentences Auscultation: clear to auscultation bilaterally, no crackles, no rales, no rhonchi and no wheezes Cardio Other: Bilateral DP signals Rate: regular rate Rhythm: regular rhythm Heart sounds: S1 normal heart sound present and S2 normal heart sound present Bruits: no carotid bruits Peripheral pulses: Peripheral pulses 2+ throughout GI Inspection: Yes normal to inspection Skin Wounds: no wounds Hair: normal Neuro General: oriented to person, oriented to place and oriented to time Cranial nerves: Yes CN's II-XII intact bilaterally and Yes Normal hearing present Cognition (Neuro): normal cognition Motor exam (neuro): 5/5 motor strength present throughout Extrem Other: venous exam: No significant superficial varicosities or spider telangiectasias, minimal edema General: No clubbing, No cyanosis and No edema Psych Appearance: grossly normal Mental Status: mental status grossly normal Speech and movement: Normal speech and movement present Assessment & Plan Assessment & Plan (1) PAD (peripheral artery disease): Code(s): I73.9 - Peripheral vascular disease, unspecified Plan: In short patient has will we believe to be claudication. I did review the pathophysiology of peripheral vascular disease with the patient. In addition we did discuss routine conservative measures including a healthy diet and the importance of exercise and ambulation. We did discuss risk factor modification in particular smoking cessation. I have taken the liberty of ordering a formal noninvasive arterial test.. Thank you for allowing us to participate in this patient's care. If there are any questions or concerns please do not hesitate to contact us. Orders: Orders US arterial duplex LE BI 1 Week I73.9 - Peripheral vascular disease, unspecified Coding Level of Care Code Est Pt Level 4 (80907) Diagnoses PAD (peripheral artery disease) I73.9
== END 2023-04-14 14:59 | disposition home or self-care (01) ==
PROVIDERS: PCP Internal Medicine; Visit Provider Surgery Vascular Surgery
DX: I73.9 Peripheral vascular disease, unspecified (principal)
CPT/HCPCS: 99213

== ENCOUNTER → 2023-04-14 14:22 | Outpatient (BNVA) | payer MEDICARE, SELFPAY | PROVIDERS: PCP Internal Medicine; Visit Provider Surgery Vascular Surgery | DX: I73.9 Peripheral vascular disease, unspecified (principal) | CPT/HCPCS: 99212 ==

== ENCOUNTER 2023-05-05 13:50 | Outpatient (REF) | payer MEDICARE, SELFPAY ==
--- NOTE | ~2023-05-05 | US_ITS ---
EXAMINATION: NONINVASIVE ASSESSMENT OF THE ARTERIES OF BOTH LOWER EXTREMITIES INCLUDING PVR EXAM AND BILATERAL LOWER EXTREMITY DUPLEX CLINICAL INFORMATION: Peripheral vascular disease, unspecified COMPARISON: None TECHNIQUE: Ankle pulse volume recordings, ankle pressure measurements and ankle brachial indices were obtained of the lower extremity arterial system bilaterally in addition to duplex Doppler techniques with wave form analysis and measurement of velocities in the common femoral, profunda femoral, superficial femoral, popliteal, tibial and peroneal arteries. The study was performed only at rest. FINDINGS: RIGHT LEG 1. Right Ankle-Brachial Index: 0.86 (higher of the DP/PT) >0.97-1.25 = normal - no significant arterial disease 0.75-0.96 = mild peripheral arterial disease 0.5-0.74 = moderate peripheral arterial disease <0.50 = severe peripheral arterial disease <0.30 = critical arterial disease 2. Segmental Pressures (mmHg): Brachial: 139 Ankle: PT 131, DP 133 3. PVR Waveforms: Ankle: Abnormal, lack of dicrotic notch 4. Direct Duplex: Common femoral artery: 202 cm/s, Multiphasic Profunda femoris artery: 162.7 cm/s, Multiphasic Superficial femoral artery (proximal): 99.3 cm/s, Multiphasic Superficial femoral artery (mid): 142.4 cm/s, Multiphasic Superficial femoral artery (distal): 87.2 cm/s, Multiphasic Proximal Popliteal artery: 61.8 cm/s, Multiphasic Popliteal artery: 61.8 cm/s, Multiphasic Posterior tibial artery: 53.8 cm/s, Multiphasic LEFT LE. Left Ankle-Brachial Index: 0.77 (higher of the DP/PT) >0.97-1.25 = normal - no significant arterial disease 0.75-0.96 = mild peripheral arterial disease 0.5-0.74 = moderate peripheral arterial disease <0.50 = severe peripheral arterial disease <0.30 = critical arterial disease 2. Segmental Pressures: Brachial: 154 Ankle: PT 119, DP 112 3. PVR Waveforms: Ankle: Abnormal, lack of dicrotic notch 4. Direct Duplex: Common femoral artery: 114.9 cm/s, Multiphasic Profunda femoris artery: 81.7 cm/s, Multiphasic Superficial femoral artery (proximal): 79.2 cm/s, Multiphasic Superficial femoral artery (mid): 123.8 cm/s, Multiphasic Superficial femoral artery (distal): 69.1 cm/s, Multiphasic Popliteal artery: 60.5 cm/s, Multiphasic Posterior tibial artery: 43.9 cm/s, Multiphasic US/US arterial duplex LE BI IMPRESSION: On the right the MARILYN is 0.86 and there is an abnormal PVR waveform without dicrotic notch suggesting at least mild disease. There is multiphasic flow throughout the right lower extremity with mildly elevated velocity at the level of the common femoral. This may suggest inflow disease. On the left MARILYN is 0.77 and PVR waveform is abnormal and without dicrotic notch suggesting at least mild disease. There is multiphasic flow throughout the left lower extremity. Findings could be suggestive of inflow disease.
== END 2023-05-05 13:51 | disposition home or self-care (01) ==
LOC: HO.US 13:50
PROVIDERS: PCP Internal Medicine; Visit Provider Surgery Vascular Surgery
DX: I73.9 Peripheral vascular disease, unspecified (principal)
CPT/HCPCS: 93923; 93925

== ENCOUNTER 2023-05-27 13:07 | Outpatient (REF) | payer MEDICARE, SELFPAY ==
--- NOTE | ~2023-05-27 | US_ITS ---
EXAMINATION: US EXTRACRANIAL CAROTID DUPLEX, BILATERAL CLINICAL INFORMATION: Carotid stenosis. COMPARISON: None available. TECHNIQUE: Real-time ultrasound and Doppler techniques (integrating B-mode 2-D vascular images, Doppler spectral analysis and color-flow Doppler imaging) were utilized to interrogate the extracranial carotid arteries, the vertebral arteries and proximal subclavian arteries bilaterally. The degree of stenosis is determined by criteria similar to NASCET. FINDINGS: Right Side: 1. There is moderate atherosclerotic plaque seen in the bifurcation/proximal ICA region. Moderate plaque is present in the common carotid artery as well as in the carotid bulb. 2. The common carotid artery PSV proximally is 101 cm/s and distally 107 cm/s. 3. The proximal internal carotid artery velocities are 109 cm/s systolic and 28 cm/s diastolic. 4. The proximal external carotid artery PSV is 344 cm/s. 5. The vertebral artery shows antegrade flow. 6. The subclavian artery waveforms are normal. Left Side: 1. There is moderate atherosclerotic plaque seen in the bifurcation/proximal ICA region. Moderate plaque is present in the common carotid artery as well as in the carotid bulb. 2. The common carotid artery PSV proximally is 113 cm/s and distally 91 cm/s. 3. The proximal internal carotid artery velocities are 172 cm/s systolic and 30 cm/s diastolic. 4. The proximal external carotid artery PSV is 267 cm/s. 5. The vertebral artery shows antegrade flow. 6. The subclavian artery waveforms are normal. US/US carotid duplex BI IMPRESSION: 1. RIGHT: Minimal, non-hemodynamically significant stenosis of the proximal right internal carotid artery corresponding to a 0-49% stenosis by velocity criteria. A tight ECA stenosis is present. 2. LEFT: Moderate, hemodynamically significant stenosis of the proximal left internal carotid artery corresponding to a 50-79% stenosis by velocity criteria. An ECA stenosis is present.
== END 2023-05-27 13:08 | disposition home or self-care (01) ==
LOC: HO.US 13:07
PROVIDERS: PCP Internal Medicine; Visit Provider Internal Medicine
DX: I65.21 Occlusion and stenosis of right carotid artery (principal)
CPT/HCPCS: 93880

== ENCOUNTER 2023-05-28 09:14 | Outpatient (AMB) | payer MEDICARE, SELFPAY ==
[2023-05-28 09:18] VITALS: BMI 25.2
--- NOTE | 2023-05-28 09:18 | A.OFFVIS_ITS ---
Intake Vital Signs 05/28/23 09:18 Height 4 ft 11 in Weight 125 lb BMI 25.2 Intake Visit Reasons: Follow up Arterial US 05/05/23 Intake Note: Follow up ARterial US 05/05/23 for LE cramping and weakness. Pt states Left LE is worse than the right LE. Has difficulty walking, especially uphill/upstairs. Also has known back issues and foot numbness. Accompanied by: Self / Same As Patient Allergies simvastatin Allergy (Verified 05/28/23 09:23) Unknown sulfamethoxazole [From Bactrim] Allergy (Verified 05/28/23 09:) Unknown trimethoprim [From Bactrim] Allergy (Verified 05/28/23 09:) Unknown HPI Follow up Arterial US 05/05/23 HPI Details Very pleasant 72-year-old female presents for follow-up regarding peripheral vascular disease. She originally began workup due to a nurse practitioner visit by her insurance company there was an unusual reading of the left lower extremity. She reports she is able to ambulate with no significant difficulty. Her biggest complaint is her shortness of breath secondary to her emphysema and her back pain. She can ambulate several blocks if that was not an issue. She continues to smoke about a pack a day. She now presents for follow- up with noninvasive arterial testing [facility] Medical History HTN (hypertension) Interstitial lung disease History of COVID-19 (~2020) Hyperlipidemia Depression Vitamin D deficiency IFG (impaired fasting glucose) GERD (gastroesophageal reflux disease) Hypercholesterolemia Paraseptal emphysema Personal history of nicotine dependence Osteopenia (~2003) Surgical History Hx of dilation and curettage History of lung biopsy History of esophagogastroduodenoscopy (EGD) History of colonoscopy History of tubal ligation Family History Father CVA (cerebral vascular accident) Mother DM2 (diabetes mellitus, type 2) Social History Patient Tobacco Use Status: Current everyday Tobacco user Tobacco use type: Cigarette Cigarettes Per Day: 15 Review of Systems Const All systems reviewed & are unremarkable except as noted in HPI and below Reports no additional complaints ENT Reports Normal hearing present Card Denies chest pain, Denies chest pain at rest, Denies chest pain with activity and Denies pedal edema Resp Denies cough GI Denies abdominal pain Musc Denies abnormal gait, Denies muscle cramps and Denies radiating pain into limb Skin/Breast Denies skin ulcer and Denies wounds Neuro Reports Normal hearing present and Denies abnormal gait Psych Reports no additional complaints Physical Exam Vital Signs: BMI result Body Mass Index 25.2 Const General: cooperative, healthy appearing and comfortable Orientation/consciousness: oriented to person, oriented to place and oriented to time HEENT Head: Yes normal to inspection Neck Neck: Yes normal visual inspection Carotids: no bruits Chest Chest palpation & inspection: normal inspection of the chest Resp Effort & Inspection: normal respiratory effort and able to speak in complete sentences Auscultation: clear to auscultation bilaterally, no crackles, no rales, no rhonchi and no wheezes Cardio Other: Right side palpable dorsalis pedis pulse Rate: regular rate Rhythm: regular rhythm Heart sounds: S1 normal heart sound present and S2 normal heart sound present Bruits: no carotid bruits Peripheral pulses: Peripheral pulses 2+ throughout GI Inspection: Yes normal to inspection Skin Wounds: no wounds Hair: normal Neuro General: oriented to person, oriented to place and oriented to time Cranial nerves: Yes CN's II-XII intact bilaterally and Yes Normal hearing present Cognition (Neuro): normal cognition Motor exam (neuro): 5/5 motor strength present throughout Extrem Other: venous exam: No significant superficial varicosities or spider yoseph ngiectasias, minimal edema General: No clubbing, No cyanosis and No edema Psych Appearance: grossly normal Mental Status: mental status grossly normal Speech and movement: Normal speech and movement present Results Reviewed Results Reviewed: Noninvasive arterial testing dated 05/05/2023 demonstrates MARILYN on the right of 0.86 and on the left of 0.77. There is multi phasic flow all the way down. Written report and images were reviewed. Assessment & Plan Assessment & Plan (1) PAD (peripheral artery disease): Code(s): I73.9 - Peripheral vascular disease, unspecified Plan: In short patient has stable claudication. I did review the pathophysiology of peripheral vascular disease with the patient. In addition we did discuss routine conservative measures including a healthy diet and the importance of exercise and ambulation. We did discuss risk factor modification in particular smoking cessation. The patient will continue to to follow-up with surveillance follow-up in approximately 1 year. Thank you for allowing us to participate in this patient's care. If there are any questions or concerns please do not hesitate to contact us. Orders: Orders US arterial duplex LE BI 364 Days I73.9 - Peripheral vascular disease, unspecified Coding Level of Care Code Est Pt Level 4 (49208) Diagnoses PAD (peripheral artery disease) I73.9
== END 2023-05-28 09:36 | disposition home or self-care (01) ==
PROVIDERS: PCP Internal Medicine; Visit Provider Surgery Vascular Surgery
DX: I73.9 Peripheral vascular disease, unspecified (principal)
CPT/HCPCS: 99213

== ENCOUNTER → 2023-05-28 09:14 | Outpatient (BNVA) | payer MEDICARE, SELFPAY | PROVIDERS: PCP Internal Medicine; Visit Provider Surgery Vascular Surgery | DX: I73.9 Peripheral vascular disease, unspecified (principal) | CPT/HCPCS: 99212 ==

== ENCOUNTER 2023-06-08 13:17 | Outpatient (AMB) | payer MEDICARE, SELFPAY ==
--- NOTE | 2023-06-08 13:31 | A.OFFVIS_ITS ---
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 Intake Note: NPV w/ EKG Rn Forensic Required: No Accompanied by: Self / Same As Patient Allergies simvastatin Allergy (Verified 06/08/23 13:34) Unknown sulfamethoxazole [From Bactrim] Allergy (Verified 06/08/23 13:34) Unknown trimethoprim [From Bactrim] Allergy (Verified 06/08/23 13:34) Unknown Medication List - Last Reconciled 06/08/23 by Alberto Powers MD aspirin 81 mg PO DAILY calcium carbonate 500 mg PO DAILY cholecalciferol (vitamin D3) (Vitamin D3) 25 mcg PO DAILY cyclosporine 0.05% (Restasis) 1 drp ophthalmic (eye) Q12H fluoxetine 20 mg PO DAILY fluticasone propion-salmeterol 113-14 mcg/actuation 1 puff inhalation BID hydrochlorothiazide 12.5 mg PO DAILY metoprolol succinate ER 25 mg PO DAILY omeprazole 20 mg PO DAILY pravastatin 20 mg PO BEDTIME HPI HPI Comments History of Present Illness Details Roro is here for consultation regarding QT prolongation on the EKG and also vascular disease. Patient herself does not have any history of coronary artery disease or myocardial infarction or cardiomyopathy. She has vascular disease however including carotid disease as well as peripheral vascular disease. She states she does not do much at baseline and is fairly sedentary. Within limits of her activity level, has not noticed any clear-cut anginal-type complaints. Chronic smoker and she states she has been smoking since the age of 10 or so. Not interested in quitting. She also has uncontrolled lipids and chest start a small dose of pravastatin. Previous intolerance to statins. [facility] Medical History (Updated 06/08/23 @ 14:08 by Alberto Powers MD) HTN (hypertension) Interstitial lung disease History of COVID-19 (~2020) Hyperlipidemia Depression Vitamin D deficiency IFG (impaired fasting glucose) GERD (gastroesophageal reflux disease) Hypercholesterolemia Paraseptal emphysema Personal history of nicotine dependence Osteopenia (~2003) Surgical History Hx of dilation and curettage History of lung biopsy History of esophagogastroduodenoscopy (EGD) History of colonoscopy History of tubal ligation Family History Father CVA (cerebral vascular accident) Mother DM2 (diabetes mellitus, type 2) Patient Tobacco Use Status: Current everyday Tobacco user Tobacco use type: Cigarette Cigarettes Per Day: 15 Review of Systems Const Denies chills, Denies daytime sleepiness, Denies fatigue, Denies fever(s), Anthony es frequent falls, Denies night sweats, Denies snoring, Denies weakness, Denies weight gain and Denies weight loss Eyes Denies loss of vision ENT Denies dizziness and Denies hearing loss Card Denies chest pain, Denies chest pain with activity, Denies syncope, Denies rapid heart rate, Denies edema, Denies claudication, Denies leg edema, Denies lightheadedness, Denies palpitations, Denies dyspnea, Denies dyspnea on exertion and Denies orthopnea Resp Denies cough, Denies excessive phlegm production, Denies dyspnea, Denies dyspnea on exertion, Denies snoring and Denies wheezing GI Denies abdominal pain, Denies hematochezia, Denies change in bowel habits, Denies change in stool character, Denies heartburn, Denies nausea and Denies vomiting Denies hematuria, Denies urinary frequency and Denies dysuria Musc Denies arthralgias, Denies muscle weakness, Denies numbness and Denies tingling Skin/Breast Denies nail changes and Denies rash Neuro Denies Abnormal speech present, Denies dizziness, Denies syncope, Denies frequent falls, Denies loss of vision, Denies memory loss, Denies numbness, Denies tingling and Denies weakness Psych Denies depression and Denies memory loss Endo Denies fatigue and Denies palpitations Aller/Immun Denies wheezing Physical Exam Vital Signs: Last Vital Signs Pulse 84 06/08/23 13:33 BP 94/56 L 06/08/23 13:33 BMI result Body Mass Index 26.6 Const General: comfortable and no acute distress Orientation/consciousness: patient oriented x3 HEENT Other: Unremarkable Head: Yes normal to inspection Neck Neck: Yes normal visual inspection Chest Chest palpation & inspection: normal inspection of the chest Resp Auscultation: clear to auscultation bilaterally Cardio Palpation: normal PMI Heart sounds: S1 normal heart sound present, S2 normal heart sound present, no gallops, Murmur heart sound present systolic I/ and at the right sternal border and no rubs GI Palpation (GI): Soft to palpation Back/Spine/Pelvis Other: unremarkable Skin General skin exam: no rashes or lesions noted Neuro General: patient oriented x3 Speech: No Abnormal speech present Extrem General: Yes normal to inspection Psych Mental Status: mental status grossly normal Office Procedures EKG Details: EKG with sinus rhythm at 84/Min; possible left atrial enlargement; nonspecific ST-T changes; normal CO; borderline QT prolongation with corrected QT of 482 milliseconds. [id number], Complete Assessment & Plan Assessment & Plan (1) Atherosclerotic cardiovascular disease: Code(s): I25.10 - Atherosclerotic heart disease of [place] coronary artery without angina pectoris Plan: She has got carotid disease as well as lower extremity vascular disease. Hence we will check perfusion imaging for any obstructive CAD. Echocardiogram for cardiac function. (2) Hyperlipidemia: Code(s): E78.5 - Hyperlipidemia, unspecified Qualifiers: Hyperlipidemia type: mixed hyperlipidemia Qualified Code(s): E78.2 - Mixed hyperlipidemia Plan: PCP labs-triglycerides 196 mg/dL. LDL is 325 mg/dL. Extremely high lipids. Sh e only a small dose of pravastatin due to history of statin intolerance. Recommend starting Repatha or Praluent which was covered by insurance. Discussed with RN. (3) Left carotid stenosis: Code(s): I65.22 - Occlusion and stenosis of left carotid artery Plan: Moderate stenosis on the left side. Minimal on the right side. It seems she is already going to vascular surgery. Aspirin/statin/Repatha as above. (4) Smoking: Code(s): F17.200 - Nicotine dependence, unspecified, uncomplicated Plan: Discussed about smoking cessation but she states she cannot do that as she has been smoking for the last 60+ years. She is well aware of the risks including heart attack and stroke and . However, she states she is going to anyway. (5) Prolonged QT interval: Code(s): R94.31 - Abnormal electrocardiogram [ECG] [EKG] Plan: No obvious offending agents. Will get labs from PCP for electrolytes. Otherwise, avoid QT prolonging drugs in the future. Orders: Orders CA echo transthoracic complete Today I25.10 - Atherosclerotic heart disease of [place] coronary artery without angina pectoris CA lexiscan stress w nixon Today I20.9 - Angina pectoris, unspecified, I25.10 - Atherosclerotic heart disease of [place] coronary artery without angina pectoris NM cardiolite stress test Today I25.10 - Atherosclerotic heart disease of [place] coronary artery without angina pectoris, R07.2 - Precordial pain Coding Level of Care Code New Pt Level 4 (59083) Diagnoses Atherosclerotic cardiovascular disease I25.10 Mixed hyperlipidemia E78.2 Hyperlipidemia type: mixed hyperlipidemia Left carotid stenosis I65.22 Smoking F17.200 Prolonged QT interval R94.31 CPT Codes EKG - CPT: 80492-[id number], Complete ([id number])
[2023-06-08 13:33] VITALS: BP 94/56; PULSE 84; BMI 26.6
== END 2023-06-08 14:06 | disposition home or self-care (01) ==
PROVIDERS: PCP Internal Medicine; Visit Provider Internal Medicine
DX: I25.10 Atherosclerotic heart disease of native coronary artery without angina pectoris (principal); E78.2 Mixed hyperlipidemia; I65.22 Occlusion and stenosis of left carotid artery; F17.200 Nicotine dependence, unspecified, uncomplicated; R94.31 Abnormal electrocardiogram [ECG] [EKG]
CPT/HCPCS: 93010; 99204

== ENCOUNTER → 2023-06-08 13:17 | Outpatient (BNVA) | payer MEDICARE, SELFPAY | PROVIDERS: PCP Internal Medicine; Visit Provider Internal Medicine | DX: I25.10 Atherosclerotic heart disease of native coronary artery without angina pectoris (principal); I10 Essential (primary) hypertension; I65.22 Occlusion and stenosis of left carotid artery; R94.31 Abnormal electrocardiogram [ECG] [EKG]; E78.2 Mixed hyperlipidemia; F17.210 Nicotine dependence, cigarettes, uncomplicated | CPT/HCPCS: 93005; 99202 ==

== ENCOUNTER → 2023-08-18 07:51 | Outpatient (REF) | payer MEDICARE, SELFPAY ==
--- NOTE | 2023-08-18 07:55 | CA_ITS ---
Transthoracic Echocardiogram Patient (Last, First, Middle): Roro Tam M Gender: Female Date of : 1950 Age: 72 Procedure Date: 08/18/2023 Procedure Type: Transthoracic Echocardiogram Location: OP Height: 152.4 cm Weight: 58.97 kg BSA: 1.55 m2 Heart Rate: 79 bpm BP: 146 / 76 mmHg Ware Carrier: CRYSTAL Referring MD: Alberto Powers MD Symptoms: I25.10 - Atherosclerotic heart disease of [place] coronary artery without... Study Quality: Adequate ECG Rhythm: Sinus Conclusions: - The left ventricular systolic function is moderately decreased. The calculated ejection fraction is 34% by biplane method. 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 - The inferolateral wall is hypokinetic. - No obvious valvular pathology seen on this study. Findings Left Ventricle Normal left ventricular cavity size. There is normal left ventricular wall thickness. The left ventricular systolic function is moderately decreased. The calculated ejection fraction is 34% by biplane method. There is evidence of regional wall motion abnormalities. Evidence suggests grade I (mild) diastolic dysfunction. LV peak GLS -12.2%. Wall Motion Rest Echo Findings The inferolateral wall is hypokinetic. 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 Right Ventricle Normal right ventricular cavity size and systolic function. Atria Both atria are normal in size. Aortic Valve There is a normal trileaflet aortic valve. There is no aortic valve stenosis. There is no aortic valve regurgitation. Mitral Valve The mitral valve appears normal. There is trace mitral valve regurgitation. There is no mitral valve stenosis. Pulmonic Valve The pulmonic valve is likely normal. Tricuspid Valve There is no tricuspid valve regurgitation. Tricuspid regurgitation envelope is inadequate for calculation of right ventricular systolic pressure. Great Vessels The asc aorta is normal in size. Small plaque is seen in the sino tubular ridge. Venous The inferior vena cava is normal in size and collapses greater than 50% with inspiration. Pericardium/Pleural Prominent epicardial adipose tissue noted. There is no evidence of pericardial effusion. Prior Study Comparison No prior study available for comparison. Recommendations, Care & Conclusions No obvious valvular pathology seen on this study. Measurements 2D Linear Measurements IVSd: 0.86 0.6-0.9/0.6-1.0 cm LVIDd: 4.62 3.9-5.3/4.2-5.9 cm LVIDd Index: 2.98 2.4-3.2/2.2-3.1 cm/m2 LVIDs: 3.43 2.0-3.6 cm LVPWd: 1.08 0.7-1.1 cm LA Diam: 3.10 2.7-3.8/3.0-4.0 cm LAIDs Index: 2.00 1.5-2.3 cm/m2 LV Mass: 191.17 67-162/88-224 g LV Mass Index: 123.34 43-95/49-115 g/m2 LVOT Diam: 2.00 3.0+(-)1.3 cm 2D Systolic Function EF 4C: 33.60 >55% EF 2C: 35.80 >55% EF BiP: 34.20 >55% Mitral Valve MV Pk E: 0.63 MV PK A: 1.17 MV Decel Time: 128.00 E/A: 0.50 E'Lateral: 4.24 E'Medial: 3.81 E/E' Med: 16.50 E/E' Lat: 14.90 PHT: 37.00 MVA PHT: 5.95 Decel [place]: 4.94 Aortic Valve AoV Pk [place]: 1.20 AoV Mn [place]: 0.84 AoV VTI: 0.28 AoV Pk Grad: 6.00 Aov Mn Grad: 3.00 MALCOLM Cont.VTI: 2.39 LVOT LVOT Pk [place]ille: 0.83 LVOT Mn [place]ille: 0.55 LVOT VTI: 0.21 LVOT Pk Grad: 3.00 LVOT Mn Grad: 1.00 LVOT Diam: 2.00 LVOT Area: 3.14 Diastolic Function MV Pk E: 0.63 MV Pk A: 1.17 E/A: 0.50 E'Medial: 3.81 E/E' Med: 16.50 E' Laterial: 4.24 E/E' Lat: 14.90 Right Ventricle TAPSE (mm): 18.70 TVS' [place]: 10.80 Tricuspid Valve RA Press: 3.00 Great Vessels Aorta Sinus of Valsalva: 3.00 2.0-3.[address] [place]: 2.18 1.7-3.4 cm Ao Asc: 3.00 2.1-3.4 cm Updated in Other Vendor System with Status of Final Alberto Powers MD electronically signed on 08/20/2023 8:18:53 AM with status of Final
== END ==
LOC: HO.CARD 07:51
PROVIDERS: PCP Internal Medicine; Visit Provider Internal Medicine
DX: I25.119 Atherosclerotic heart disease of native coronary artery with unspecified angina pectoris (principal)
CPT/HCPCS: 93306; 93356

== ENCOUNTER → 2023-08-18 07:55 | Outpatient (BNV) | payer MEDICARE, SELFPAY | PROVIDERS: PCP Internal Medicine; Visit Provider Internal Medicine | DX: I25.10 Atherosclerotic heart disease of native coronary artery without angina pectoris (principal) | CPT/HCPCS: 93306 ==

== ENCOUNTER 2023-09-03 12:50 | Outpatient (AMB) | payer MEDICARE, SELFPAY ==
--- NOTE | 2023-09-03 13:04 | MHC.OFFVIS ---
Intake Vital Signs 09/03/23 13:05 Height 4 ft 11 in Weight 130 lb 1.164 oz BMI 26.3 BP 120/56 L Blood Pressure Location Lt brachial Position Sitting Pulse 83 Intake Visit Reasons: 3 mth f/up testing Intake Note: 3 month follow up Concierge Receptionist Required: No Accompanied by: Spouse Allergies simvastatin Allergy (Verified 09/03/23 13:07) Unknown sulfamethoxazole [From Bactrim] Allergy (Verified 09/03/23 13:07) Unknown trimethoprim [From Bactrim] Allergy (Verified 09/03/23 13:07) Unknown Medication List - Last Reconciled 09/03/23 by Alberto Powers MD aspirin 81 mg PO DAILY cholecalciferol (vitamin D3) (Vitamin D3) 25 mcg PO DAILY cyclosporine 0.05% (Restasis) 1 drp ophthalmic (eye) Q12H evolocumab (Repatha SureClick) 140 mg subcut Q2W 90 days fluticasone propion-salmeterol 113-14 mcg/actuation 1 puff inhalation BID hydrochlorothiazide 12.5 mg PO DAILY metoprolol succinate ER 25 mg PO DAILY omeprazole 20 mg PO DAILY HPI HPI Comments History of Present Illness Details Roro returns for follow-up. Recently seen in consultation. Patient herself does not have any history of coronary artery disease or myocardial infarction or cardiomyopathy. She has vascular disease however including carotid disease as well as peripheral vascular disease. She states she does not do much at baseline and is fairly sedentary. Within limits of her activity level, has not noticed any clear-cut anginal-type complaints. Chronic smoker and she states she has been smoking since the age of 10 or so. Not interested in quitting. She also has uncontrolled lipids. Statin intolerant. When I questioned her regarding anginal-type symptoms she states she gets like heartburn type symptoms every so often and some random chest pains. This could be anginal but not clear. [facility] Medical History (Updated 06/08/23 @ 14:08 by Alberto Powers MD) HTN (hypertension) Interstitial lung disease History of COVID-19 (~2020) Hyperlipidemia Depression Vitamin D deficiency IFG (impaired fasting glucose) GERD (gastroesophageal reflux disease) Hypercholesterolemia Paraseptal emphysema Personal history of nicotine dependence Osteopenia (~2003) Surgical History Hx of dilation and curettage History of lung biopsy History of esophagogastroduodenoscopy (EGD) History of colonoscopy History of tubal ligation Family History Father CVA (cerebral vascular accident) Mother DM2 (diabetes mellitus, type 2) Social History Patient Tobacco Use Status: Current everyday Tobacco user Tobacco use type: Cigarette Cigarettes Per Day: 15 Review of Systems Const Denies weakness ENT Denies dizziness Card Denies chest pain with activity, Denies syncope, Denies rapid heart rate, Denies pedal edema, Denies edema, Denies leg edema, Denies lightheadedness, Denies palpitations, Denies dyspnea, Denies dyspnea on exertion and Denies orthopnea Resp Denies cough, Denies dyspnea and Denies dyspnea on exertion GI Denies hematochezia and Denies change in stool character Musc Denies abnormal gait, Denies muscle cramps, Denies muscle weakness, Denies numbness, Denies radiating pain into limb and Denies tingling Neuro Denies Abnormal speech present, Denies abnormal gait, Denies dizziness, Denies syncope, Denies numbness, Denies tingling and Denies weakness Endo Denies palpitations Physical Exam Vital Signs: Last Vital Signs Pulse 83 09/03/23 13:05 BP 120/56 L 09/03/23 13:05 BMI result Body Mass Index 26.3 Const General: comfortable and no acute distress Orientation/consciousness: patient oriented x3 HEENT Other: Unremarkable Head: Yes normal to inspection Neck Neck: Yes normal visual inspection Chest Chest palpation & inspection: normal inspection of the chest Resp Auscultation: clear to auscultation bilaterally Cardio Palpation: normal PMI Heart sounds: S1 normal heart sound present, S2 normal heart sound present, no gallops, Murmur heart sound present systolic I/ and at the right sternal border and no rubs GI Palpation (GI): Soft to palpation Back/Spine/Pelvis Other: unremarkable Skin General skin exam: no rashes or lesions noted Neuro General: patient oriented x3 Speech: No Abnormal speech present Extrem General: Yes normal to inspection Psych Mental Status: mental status grossly normal Assessment & Plan Assessment & Plan (1) Atherosclerotic cardiovascular disease: Code(s): I25.10 - Atherosclerotic heart disease of [place] coronary artery without angina pectoris Plan: Echocardiogram with LVEF of 34%. Inferolateral wall is hypokinetic and basal inferior wall is aneurysmal. Recommended diagnostic catheterization to assess coronary anatomy as she has never been checked. She agrees. (2) Hyperlipidemia: Code(s): E78.5 - Hyperlipidemia, unspecified Qualifiers: Hyperlipidemia type: mixed hyperlipidemia Qualified Code(s): E78.2 - Mixed hyperlipidemia Plan: PCP labs-triglycerides 196 mg/dL. LDL is 325 mg/dL. Extremely high lipids. History of statin intolerance. Now on Repatha. Recheck lipids. (3) Left carotid stenosis: Code(s): I65.22 - Occlusion and stenosis of left carotid artery Plan: Moderate stenosis on the left side. Minimal on the right side. It seems she is already going to vascular surgery. (4) Smoking: Code(s): F17.200 - Nicotine dependence, unspecified, uncomplicated Plan: Discussed about smoking cessation but she states she cannot do that as she has been smoking for the last 60+ years. She is well aware of the risks including heart attack and stroke and . Plan Discussed with significant other. Orders: Orders Prothrombin Time INR Today I25.10 - Atherosclerotic heart disease of [place] coronary artery without angina pectoris Lipid Panel Today E78.5 - Hyperlipidemia, unspecified, I25.10 - Atherosclerotic heart disease of [place] coronary artery without angina pectoris Cardiac Cath LT Diagnostic Today I25.10 - Atherosclerotic heart disease of [place] coronary artery without angina pectoris Complete Blood Count no Diff Today I25.10 - Atherosclerotic heart disease of [place] coronary artery without angina pectoris Basic Metabolic Panel Today I25.10 - Atherosclerotic heart disease of [place] coronary artery without angina pectoris Coding Level of Care Code Est Pt Level 4 (80387) Diagnoses Atherosclerotic cardiovascular disease I25.10 Mixed hyperlipidemia E78.2 Hyperlipidemia type: mixed hyperlipidemia Left carotid stenosis I65.22 Smoking F17.200
[2023-09-03 13:05] VITALS: BP 120/56; PULSE 83; BMI 26.3
== END 2023-09-03 14:11 | disposition home or self-care (01) ==
PROVIDERS: PCP Internal Medicine; Visit Provider Internal Medicine
DX: I25.10 Atherosclerotic heart disease of native coronary artery without angina pectoris (principal); E78.2 Mixed hyperlipidemia; I65.22 Occlusion and stenosis of left carotid artery; F17.200 Nicotine dependence, unspecified, uncomplicated
CPT/HCPCS: 99214

== ENCOUNTER → 2023-09-03 12:50 | Outpatient (BNVA) | payer MEDICARE, SELFPAY | PROVIDERS: PCP Internal Medicine; Visit Provider Internal Medicine | DX: I25.10 Atherosclerotic heart disease of native coronary artery without angina pectoris (principal); I65.22 Occlusion and stenosis of left carotid artery; E78.2 Mixed hyperlipidemia; F17.210 Nicotine dependence, cigarettes, uncomplicated | CPT/HCPCS: 99212 ==

== ENCOUNTER → 2023-09-22 23:59 | Outpatient (BNV) | payer MEDICARE, SELFPAY | PROVIDERS: PCP Internal Medicine; Visit Provider Internal Medicine Cardiovascular Disease | DX: I42.9 Cardiomyopathy, unspecified (principal) | CPT/HCPCS: 93458; 99152 ==

== ENCOUNTER 2023-10-06 13:21 | Outpatient (AMB) | payer MEDICARE, SELFPAY ==
--- NOTE | 2023-10-06 13:28 | MHC.OFFVIS ---
Intake Vital Signs 10/06/23 13:29 Height 4 ft 11 in Weight 128 lb 4.944 oz BMI 25.9 BP 130/62 Blood Pressure Location Lt brachial Position Sitting Pulse 92 Pulse Source Monitor Intake Visit Reasons: Follow up post cardiac cath Enterprise Resource Planner Required: No Community Health Worker: Community Health Worker Present Allergies simvastatin Allergy (Verified 10/06/23 13:34) Unknown sulfamethoxazole [From Bactrim] Allergy (Verified 10/06/23 13:34) Unknown trimethoprim [From Bactrim] Allergy (Verified 10/06/23 13:34) Unknown Medication List - Last Reconciled 10/06/23 by Pam Osuna NP-C aspirin 81 mg PO DAILY cholecalciferol (vitamin D3) (Vitamin D3) 25 mcg PO DAILY cyclosporine 0.05% (Restasis) 1 drp ophthalmic (eye) Q12H evolocumab (Repatha SureClick) 140 mg subcut Q2W 90 days fluticasone propion-salmeterol 113-14 mcg/actuation 1 puff inhalation BID hydrochlorothiazide 12.5 mg PO DAILY metoprolol succinate ER 25 mg PO DAILY omeprazole 20 mg PO DAILY HPI Follow up post cardiac cath HPI Details Martínez is a 72-year-old female with past medical history of smoking, hypertension, hyperlipidemia, peripheral vascular disease, carotid stenosis, COPD who reported epigastric discomfort on last visit and she underwent an echocardiogram and cardiac catheterization and now presents for follow-up. Today she reports that she will get periodic heartburn sensation and points to her epigastric area. She feels this happens mostly after eating certain foods. She does not get this symptom with physical activity. No other chest discomfort. She does have some shortness of breath with activity which she relates to her COPD. She is mostly sedentary. No PND, orthopnea or edema. No lightheadedness, presyncope, syncope, falls. No concerning heart palpitations. Taking all meds as directed. Right radial catheterization site is feeling well. [facility] Medical History (Updated 10/06/23 @ 16:41 by Pam Osuna, SUPERVISOR FINAL-C) HTN (hypertension) Interstitial lung disease History of COVID-19 (~2020) Hyperlipidemia Depression Vitamin D deficiency IFG (impaired fasting glucose) GERD (gastroesophageal reflux disease) Hypercholesterolemia Paraseptal emphysema Personal history of nicotine dependence Osteopenia (~2003) Surgical History (Updated 10/06/23 @ 17:46 by TOMMIE Tsang) History of cardiac cath Hx of dilation and curettage History of lung biopsy History of esophagogastroduodenoscopy (EGD) History of colonoscopy History of tubal ligation Family History Father CVA (cerebral vascular accident) Mother DM2 (diabetes mellitus, type 2) Social History Patient Tobacco Use Status: Current everyday Tobacco user Tobacco use type: Cigarette Cigarettes Per Day: 15 Review of Systems Const All systems reviewed & are unremarkable except as noted in HPI and below ENT Denies dizziness Card Details: Heartburn sensation which occurs mostly after eating Denies chest pain, Denies chest pain at rest, Denies chest pain with activity, Denies rapid heart rate, Denies pedal edema, Denies edema, Denies leg edema, Denies lightheadedness, Denies palpitations, Denies dyspnea, Reports dyspnea on exertion and Denies orthopnea Resp Denies cough, Denies dyspnea and Reports dyspnea on exertion GI Denies hematochezia and Denies change in stool character Musc Details: Mostly sedentary Denies abnormal gait, Denies limited range of motion, Denies muscle cramps, Denies muscle weakness, Denies numbness, Denies radiating pain into limb, Denies stiffness and Denies tingling Neuro Denies abnormal gait, Denies dizziness, Denies numbness and Denies tingling Endo Denies palpitations Physical Exam Vital Signs: Last Vital Signs Pulse 92 10/06/23 13:29 BP 130/62 10/06/23 13:29 BMI result Body Mass Index 25.9 Const General: cooperative, healthy appearing, comfortable and no acute distress Orientation/consciousness: patient oriented x3 Neck Other: Right carotid bruit Neck: Yes normal visual inspection and Yes no JVD Resp Effort & Inspection: normal respiratory effort Auscultation: clear to auscultation bilaterally, no crackles, no rales, no rhonchi and no wheezes Cardio Jugular venous distension: no JVD Rate: regular rate Rhythm: regular rhythm Heart sounds: S1 normal heart sound present, S2 normal heart sound present, no murmurs and no rubs Neuro General: patient oriented x3 Extrem Other: Right radial catheterization site well healed, easily palpable radial pulse, hand assessment normal General: Yes normal to inspection and No no pedal edema Psych Appearance: grossly normal Mental Status: mental status grossly normal Speech and movement: Normal speech and movement present Assessment & Plan Assessment & Plan (1) Atherosclerotic cardiovascular disease: Code(s): I25.10 - Atherosclerotic heart disease of [place] coronary artery without angina pectoris Plan: Report of epigastric discomfort on last visit. Multiple cardiac risk factors including smoking, hypertension, hyperlipidemia, peripheral vascular disease. An echocardiogram was done on 08/18/2023 showing EF 34%, basal inferior segment aneurysmal, inferior lateral wall hypokinetic, no valve abnormalities, grade 1 diastolic dysfunction. She then underwent cardiac catheterization on 09/22/2023 which showed CLINICAL PHARMACOLOGIST of the RCA with collaterals, significant left circumflex and 1st OM stenosis. She had no concerning symptoms at that time and will be managed medically. If she has anginal symptoms then PCI of the RCA can be considered. Today she reports that she will get epigastric area discomfort if she eats certain foods. This symptom is not brought on by physical activity. She has some shortness of breath with activity which she relates to COPD. Spent time reviewing echo and catheterization results with her and significant other in detail. Will have her continue aspirin indefinitely. Continue Brilinta uninterrupted for at least 1 year. Continue metoprolol. Heart rate running in the 90s frequently at home and today at this visit. Will have her increase metoprolol XL up to 50 mg daily. She is intolerant to statins and has been on Repatha. Labs done 09/11/2023 shows LDL 77. Will order cardiac rehab. Signs and symptoms of angina reviewed with her. Cardiology follow-up in 3 to 4 months, sooner if needed (2) History of cardiac cath: Comment: 09/22/2023, left main 20-30% stenosis, lad minimal irregularities, left circumflex proximal 70% stenosis, 1st OM 70% stenosis, RCA ostial 99% stenosis, mid 100% stenosis with collaterals Code(s): Z98.890 - Other specified postprocedural states Plan: Right radial catheterization site well healed (3) Hyperlipidemia: Code(s): E78.5 - Hyperlipidemia, unspecified Qualifiers: Hyperlipidemia type: mixed hyperlipidemia Qualified Code(s): E78.2 - Mixed hyperlipidemia Plan: As above (4) PAD (peripheral artery disease): Code(s): I73.9 - Peripheral vascular disease, unspecified Plan: History of peripheral vascular disease including carotid stenosis. Follows with Dr. Dugan (5) Cardiomyopathy: Code(s): I42.9 - Cardiomyopathy, unspecified Plan: Recent echocardiogram with EF 34%. Likely ischemic cardiomyopathy based on findings of cardiac catheterization. No signs of heart failure on examination. She is currently on metoprolol. Will be increasing the dose up to 50 mg daily. After a few days will have her stop hydrochlorothiazide and start on valsartan 20 mg b.i.d.. Will have our nurse call her in 2 weeks for a blood pressure check. Lab slip given to have BMP drawn 1-2 weeks after start of valsartan. Plan will be to transition to Entresto if blood pressure allows. She is agreeable to this plan. Plan for repeat limited echo 3 months after the start of neurohormonal modulation. Repeat echo will be prior to her next visit. (6) HTN (hypertension): Code(s): I10 - Essential (primary) hypertension Plan: Well controlled at present. Med adjustments as above Orders: Orders Basic Metabolic Panel Today I25.10 - Atherosclerotic heart disease of [place] coronary artery without angina pectoris CA echo limited 01/04/24 I42.9 - Cardiomyopathy, unspecified Medications: New metoprolol succinate ER Dose increased 50 mg PO DAILY 30 tabs 5RF valsartan Stop hydrochlorothiazide, start valsartan 20 mg (1/2 x 40 mg) PO BID 30 tabs 2RF Coding Level of Care Code Est Pt Level 4 (70835) Diagnoses Atherosclerotic cardiovascular disease I25.10 History of cardiac cath Z98.890 Mixed hyperlipidemia E78.2 Hyperlipidemia type: mixed hyperlipidemia PAD (peripheral artery disease) I73.9 Cardiomyopathy I42.9 HTN (hypertension) I10 Time Spent (min) 30
[2023-10-06 13:29] VITALS: BP 130/62; PULSE 92; BMI 25.9
== END 2023-10-06 14:16 | disposition home or self-care (01) ==
PROVIDERS: PCP Internal Medicine; Visit Provider Nurse Practitioner Family
DX: I25.10 Atherosclerotic heart disease of native coronary artery without angina pectoris (principal); Z98.890 Other specified postprocedural states; E78.2 Mixed hyperlipidemia; I73.9 Peripheral vascular disease, unspecified; I42.9 Cardiomyopathy, unspecified; I10 Essential (primary) hypertension
CPT/HCPCS: 99214

== ENCOUNTER → 2023-10-06 13:21 | Outpatient (BNVA) | payer MEDICARE, SELFPAY | PROVIDERS: PCP Internal Medicine; Visit Provider Nurse Practitioner Family | DX: I25.10 Atherosclerotic heart disease of native coronary artery without angina pectoris (principal); Z98.890 Other specified postprocedural states | CPT/HCPCS: 99212 ==

== ENCOUNTER 2023-12-16 08:43 | Outpatient (REF) | payer MEDICARE, SELFPAY ==
[2023-12-16 09:41] LABS: Hematocrit 38.1 % (37.0-47.0); Hemoglobin 12.6 g/dl (12.0-16.0); Mean Corpuscular HGB Conc 33.1 g/dl (31.0-35.0); Mean Corpuscular Hemoglobin 31.5 pg (27.0-33.0); Mean Corpuscular Volume 95.3 fL (80.0-98.0); Mean Platelet Volume 9.3 fL (9.4-12.3); Platelet Count 334 X10*3/uL (160-400); Red Cell Distribution Width 13.2 % (11.0-16.0); White Blood Count 8.1 X10*3/uL (4.8-10.8)
[2023-12-16 09:45] LABS: INTERNATIONAL NORM RATIO 0.9 (0.9-1.1); Prothrombin Time 11.5 SEC (11.1-13.3)
[2023-12-16 10:20] LABS: Anion Gap 13 (12-20); Blood Urea Nitrogen 19 mg/dL (9-16); Calcium 9.7 mg/dL (8.4-10.2); Carbon Dioxide 25 mmol/L (22-29); Chloride 107 mmol/L (96-108); Cholesterol 181 mg/dL (<200); Estimated Glomerular Filt Rate > 60; Glucose Random 99 mg/dL (60-115); HDL Cholesterol 57 mg/dL (>40); LDL Cholesterol Calculated 100 mg/dL (<100); Potassium 5.3 mmol/L (3.3-5.1); Sodium 140 mmol/L (135-145); Triglycerides 120 mg/dL (<150)
== END 2023-12-16 08:44 | disposition home or self-care (01) ==
LOC: HO.LAB 08:43
PROVIDERS: PCP Internal Medicine; Visit Provider Internal Medicine
DX: I25.10 Atherosclerotic heart disease of native coronary artery without angina pectoris (principal); E78.5 Hyperlipidemia, unspecified
CPT/HCPCS: 36415; 80048; 80061; 85027; 85610

== ENCOUNTER 2024-01-02 08:31 | Outpatient (REF) | payer MEDICARE, SELFPAY ==
[2024-01-02 09:59] LABS: Anion Gap 12 (12-20); Blood Urea Nitrogen 17 mg/dL (9-16); Calcium 9.8 mg/dL (8.4-10.2); Carbon Dioxide 27 mmol/L (22-29); Chloride 104 mmol/L (96-108); Estimated Glomerular Filt Rate > 60; Glucose Random 96 mg/dL (60-115); Potassium 4.3 mmol/L (3.3-5.1); Sodium 139 mmol/L (135-145)
== END 2024-01-02 08:32 | disposition home or self-care (01) ==
LOC: HO.LAB 08:31
PROVIDERS: PCP Internal Medicine; Visit Provider Nurse Practitioner Family
DX: I25.10 Atherosclerotic heart disease of native coronary artery without angina pectoris (principal)
CPT/HCPCS: 36415; 80048

== ENCOUNTER → 2024-01-08 13:36 | Outpatient (REF) | payer MEDICARE, SELFPAY ==
--- NOTE | 2024-01-08 13:40 | CA_ITS ---
Transthoracic Echocardiogram Patient (Last, First, Middle): Roro Tam M Gender: Female Date of : 1950 Age: 73 Procedure Date: 01/08/2024 Procedure Type: Transthoracic Echocardiogram Location: OP Height: 162.56 cm Weight: 56.7 kg BSA: 1.60 m2 Heart Rate: 73 bpm BP: 110 / 75 mmHg Painter Tumbling Barrel: ZEESHAN Referring MD: Pam Osuna BEAM HOUSE INSPECTORLilibethC Dining Room Supervisor: Nicolas Royal MD Symptoms: I42.9 - Cardiomyopathy, unspecified Study Quality: Adequate, Limited by order ECG Rhythm: Sinus Conclusions: - [id number] LV systolic dysfunction with LVEF of 40-45% with regional wall motion abnormality consistent with ischemic cardiomyopathy with impaired relaxation filling pattern Findings Left Ventricle Normal left ventricular cavity size. There is normal left ventricular wall thickness. The left ventricular systolic function is mild to moderately decreased. The visually estimated ejection fraction is between 40-45%. Spectral Doppler is indicative of an impaired relaxation filling pattern. E/E prime ratio is between 8 and 15 consistent with indeterminate filling pressures. Peak GLS is -16.3%, mildly reduced. Wall Motion Rest Echo Findings The inferolateral wall and basal inferoseptal segment are hypokinetic. The basal inferior segment is akinetic. All other scored wall segments showed normal motion. Prior Study Comparison Changes noted compared to prior study dated: 08/18/2023. LV systolic function has improved Measurements 2D Linear Measurements IVSd: 1.10 0.6-0.9/0.6-1.0 cm LVIDd: 4.88 3.9-5.3/4.2-5.9 cm LVIDd Index: 3.05 2.4-3.2/2.2-3.1 cm/m2 LVIDs: 3.56 2.0-3.6 cm LVPWd: 0.85 0.7-1.1 cm LV Mass: 210.49 67-162/88-224 g LV Mass Index: 131.56 43-95/49-115 g/m2 LVOT Diam: 1.90 3.0+(-)1.3 cm 2D Systolic Function EF 4C: 43.60 >55% EF 2C: 45.10 >55% EF BiP: 43.00 >55% Mitral Valve MV Pk E: 0.74 MV PK A: 1.04 MV Decel Time: 276.00 E/A: 0.70 E'Lateral: 6.42 E'Medial: 4.03 E/E' Med: 18.40 E/E' Lat: 11.60 PHT: 81.00 MVA PHT: 2.72 Decel [place]: 2.69 LVOT LVOT Pk [place]: 0.83 LVOT Mn [place]: 0.60 LVOT VTI: 0.21 LVOT Pk Grad: 3.00 LVOT Mn Grad: 2.00 LVOT Diam: 1.90 LVOT Area: 2.84 Diastolic Function MV Pk E: 0.74 MV Pk A: 1.04 E/A: 0.70 E'Medial: 4.03 E/E' Med: 18.40 E' Laterial: 6.42 E/E' Lat: 11.60 Updated in Other Vendor System with Status of Final Nicolas Royal MD electronically signed on 01/08/2024 3:30:50 PM with status of Final
== END ==
LOC: HO.CARD 13:36
PROVIDERS: PCP Internal Medicine; Visit Provider Nurse Practitioner Family
DX: I42.9 Cardiomyopathy, unspecified (principal)
CPT/HCPCS: 93308; 93356

== ENCOUNTER → 2024-01-08 13:40 | Outpatient (BNV) | payer MEDICARE, SELFPAY | PROVIDERS: PCP Internal Medicine; Visit Provider Internal Medicine Cardiovascular Disease | DX: I25.5 Ischemic cardiomyopathy (principal); R93.1 Abnormal findings on diagnostic imaging of heart and coronary circulation | CPT/HCPCS: 93308; 93321; 93325; 93356 ==

== ENCOUNTER 2024-01-13 12:45 | Outpatient (AMB) | payer MEDICARE, SELFPAY ==
--- NOTE | 2024-01-13 12:48 | MHC.OFFVIS ---
Vital Signs 01/13/24 12:49 Height 4 ft 11 in Weight 130 lb 15.273 oz BMI 26.4 BP 110/60 Blood Pressure Location Lt brachial Position Sitting Pulse 72 Pulse Source Pulse Oximeter Intake Visit Reasons: 4 mnth f/up Driver Merchandiser Required: No Accompanied by: Self / Same As Patient Allergies simvastatin Allergy (Verified 10/06/23 13:34) Unknown sulfamethoxazole [From Bactrim] Allergy (Verified 10/06/23 13:34) Unknown trimethoprim [From Bactrim] Allergy (Verified 10/06/23 13:34) Unknown Medication List - Last Reconciled 01/13/24 by Alberto Powers MD aspirin 81 mg PO DAILY carboxymethylcellulose sodium 0.5% (Refresh Tears) 1 drp ophthalmic (eye) BID cholecalciferol (vitamin D3) (Vitamin D3) 25 mcg PO DAILY cyclosporine 0.05% (Restasis) 1 drp ophthalmic (eye) Q12H evolocumab (Repatha SureClick) 140 mg subcut Q2W 90 days fluticasone propion-salmeterol 113-14 mcg/actuation 1 puff inhalation BID metoprolol succinate ER 75 mg PO DAILY omeprazole 20 mg PO DAILY valsartan 20 mg (1/2 x 40 mg) PO BID 30 days HPI Comments Details: Roro returns for follow-up. Essentially, she is got extensive vascular disease including carotid as well as peripheral vascular disease. She did not really have any clear-cut chest pains but considering her extensive vascular history we pursue ischemic workup. She underwent an echocardiogram which was quite abnormal wall motion abnormalities. That led to cardiac catheterization. Overall, she states she has okay. no clear-cut anginal-type complaints. She has been smoking for the last 60+ years and hence not willing to quit. She had uncontrolled lipids with LDL of more than 300 and statin intolerant. Now she is on Repatha. Lipids have improved. Otherwise, seems to be doing okay. [facility] Medical History (Updated 11/30/23 @ 10:54 by Cheli Eagle PA-C) Nicotine dependence, cigarettes, uncomplicated HTN (hypertension) Interstitial lung disease History of COVID-19 (~2020) Hyperlipidemia Depression Vitamin D deficiency IFG (impaired fasting glucose) GERD (gastroesophageal reflux disease) Hypercholesterolemia Paraseptal emphysema Osteopenia (~2003) Surgical History History of cardiac cath Hx of dilation and curettage History of lung biopsy History of esophagogastroduodenoscopy (EGD) History of colonoscopy History of tubal ligation Family History Father CVA (cerebral vascular accident) Mother DM2 (diabetes mellitus, type 2) Social History Patient Tobacco Use Status: Current everyday Tobacco user Tobacco use type: Cigarette Cigarettes Per Day: 15 Review of Systems Const Denies chills, Denies fatigue, Denies fever(s), Denies frequent falls, Denies weakness, Denies weight gain and Denies weight loss ENT Denies dizziness Card Denies chest pain, Denies leg edema, Denies lightheadedness, Denies palpitations, Denies dyspnea and Denies dyspnea on exertion Resp Denies cough, Denies dyspnea and Denies dyspnea on exertion GI Denies hematochezia Musc Denies abnormal gait, Denies muscle weakness, Denies numbness, Denies radiating pain into limb and Denies tingling Neuro Denies abnormal gait, Denies dizziness, Denies frequent falls, Denies numbness, Denies tingling and Denies weakness Endo Denies fatigue and Denies palpitations Physical Exam Vital Signs: Last Vital Signs Pulse 72 01/13/24 12:49 BP 110/60 01/13/24 12:49 BMI result Body Mass Index 26.4 Const General: comfortable and no acute distress Orientation/consciousness: patient oriented x3 HEENT Other: Unremarkable Head: Yes normal to inspection Neck Neck: Yes normal visual inspection Chest Chest palpation & inspection: normal inspection of the chest Resp Auscultation: clear to auscultation bilaterally Cardio Palpation: normal PMI Heart sounds: S1 normal heart sound present, S2 normal heart sound present, no gallops, no murmurs and no rubs GI Palpation (GI): Soft to palpation Back/Spine/Pelvis Other: unremarkable Skin General skin exam: no rashes or lesions noted Neuro General: patient oriented x3 Extrem General: Yes normal to inspection Psych Mental Status: mental status grossly normal Assessment & Plan Assessment & Plan (1) Atherosclerotic cardiovascular disease: Code(s): I25.10 - Atherosclerotic heart disease of [place] coronary artery without angina pectoris Category: Medical Plan: Echocardiogram with diminished LVEF and inferolateral/inferior wall motion abnormalities. Basal inferior wall was thought to be aneurysmal. In the cardiac catheterization, occluded RCA with [id number] collaterals. Circumflex with bifurcation lesion at OM1 with 70% stenosis in each branch. Left main with 20-30% stenosis. Overall, mainly guideline based medical therapy. Continue aspirin. Continue Repatha. LDL was more than 300 but most recently about 100mg/dl. Hence overall, there is significant improvement. (2) Hyperlipidemia: Code(s): E78.5 - Hyperlipidemia, unspecified Category: Medical Qualifiers: Hyperlipidemia type: mixed hyperlipidemia Qualified Code(s): E78.2 - Mixed hyperlipidemia Plan: PCP labs-triglycerides 196 mg/dL. LDL is 325 mg/dL. Extremely high lipids. History of statin intolerance. With Repatha, improved as mentioned above. (3) Left carotid stenosis: Code(s): I65.22 - Occlusion and stenosis of left carotid artery Category: Medical Plan: Moderate stenosis on the left side. Minimal on the right side. It seems she is already going to vascular surgery. (4) Smoking: Code(s): F17.200 - Nicotine dependence, unspecified, uncomplicated Category: Social Hx Plan: Has smoked for almost 60+ years and she is not willing to quit. Medications: Changed From metoprolol succinate ER Dose increased 50 mg PO DAILY 90 tabs 3RF To metoprolol succinate ER Dose increased 75 mg PO DAILY Coding Level of Care Code Est Pt Level 4 (30721) Diagnoses Atherosclerotic cardiovascular disease I25.10 Mixed hyperlipidemia E78.2 Hyperlipidemia type: mixed hyperlipidemia Left carotid stenosis I65.22 Smoking F17.200
[2024-01-13 12:49] VITALS: BP 110/60; PULSE 72; BMI 26.4
== END 2024-01-13 13:10 | disposition home or self-care (01) ==
PROVIDERS: PCP Internal Medicine; Visit Provider Internal Medicine
DX: I25.10 Atherosclerotic heart disease of native coronary artery without angina pectoris (principal); E78.2 Mixed hyperlipidemia; I65.22 Occlusion and stenosis of left carotid artery; F17.200 Nicotine dependence, unspecified, uncomplicated
CPT/HCPCS: 99214

== ENCOUNTER → 2024-01-13 12:45 | Outpatient (BNVA) | payer MEDICARE, SELFPAY | PROVIDERS: PCP Internal Medicine; Visit Provider Internal Medicine | DX: I65.22 Occlusion and stenosis of left carotid artery (principal); I25.10 Atherosclerotic heart disease of native coronary artery without angina pectoris; I73.9 Peripheral vascular disease, unspecified; E78.2 Mixed hyperlipidemia; F17.210 Nicotine dependence, cigarettes, uncomplicated | CPT/HCPCS: 99212 ==

== ENCOUNTER 2024-01-19 12:40 | Outpatient (REF) | payer MEDICARE, SELFPAY ==
--- NOTE | ~2024-01-19 | CT_ITS ---
EXAMINATION: CT LOW-DOSE SCREENING CHEST WITHOUT CONTRAST CLINICAL INFORMATION: Nicotine dependence, cigarettes, uncomplicated. The patient is a current smoker with a 60 pack-year history of smoking. COMPARISON: Multiple prior CT scans of the chest, the most recent of which is dated 10/22/2022 and the most remote of which is dated 04/08/2013. TECHNIQUE: Multidetector volumetric CT imaging of the chest is performed on a Siemens SOMATOM Definition scanner without contrast using low dose technique. Additional 2D coronal and sagittal reformatted images and axial 3D maximum intensity projection (MIP) images are generated on the CT workstation. This CT examination was performed using dose optimization techniques as appropriate, variously including the following: *Automated exposure control *Adjustment of mA and/or kV according to patient size (this includes techniques or standardized protocols for targeted exams where dose is matched to indication/reason for exam; i.e. extremities or head) *Use of iterative reconstruction technique TOTAL EXAM DLP: 39 mGy-cm. CTDIvol: 1.15 mGy. Please note, due to [employer] technical, staffing, systems and internal issues, this examination was not available for dictation until 02/19/2024. FINDINGS: PULMONARY NODULES: -Multiple small pulmonary nodules are stable, the largest nodule again measures 5 mm in the left upper lobe (series 6, [id number]) -Left upper lobe posterior pleural-based nodule measuring 4 mm, stable (series 6, image 72). -Anterior lower right lower lobe pleural-based 5 mm nodule, unchanged (series 6, image 333). -No new or enlarging nodules. LUNGS: -Mild centrilobular and paraseptal emphysematous changes are present. -Prior wedge resection anterior right upper lobe near the apex. There is associated scarring. - There are new lingular and left lower lobe patchy groundglass foci, the largest in the lateral left lower lobe measuring approximately 2.3 x 1.7 cm. No solid component. These are presumably inflammatory/infectious. -Mild linear scarring in the inferior and medial right middle lobe as well as the lingula, unchanged. MEDIASTINUM: -Multinodular thyroid with several calcifications again noted. -Aorta is moderately calcified but nonaneurysmal. -Pulmonary artery is normal in size. -No pathologic mediastinal or hilar lymphadenopathy identified. -The esophagus appears grossly normal. -Heart size is normal. No pericardial effusion. Mild mitral annular and aortic annular calcifications. CORONARY ARTERY CALCIFICATION: Moderate three-vessel calcification. CHEST WALL/AXILLA: No masses or adenopathy. UPPER ABDOMEN: Left adrenal hyperplasia, unchanged. Mild gastric varices appear unchanged. Moderate calcification of the imaged aorta and branches. OSSEOUS STRUCTURES: No suspicious focal findings. CT/CT lung screening IMPRESSION: 1. Multiple small pulmonary nodules which are stable and unchanged, the largest in the left upper lobe measuring 5 mm. No new or enlarging nodules. 2. Mild centrilobular and paraseptal emphysematous changes. 3. Prior wedge resection anterior left upper lobe with scarring. 4. New lingular and left lower lobe patchy groundglass foci, most likely infectious or inflammatory in etiology. 5. No abnormal lymphadenopathy. ASSESSMENT: 1. Lung-RADS Category 2: Benign appearance or behavior of nodules. 2. Lung-RADS Category S: Negative. RECOMMENDATION: Continued routine annual low-dose CT lung screening in 1 year is recommended. An order for CT CHEST LOW DOSE CANCER SCREENING ([id number]) can be placed. Recommend clinical management of the groundglass foci in the lingula and left lower lobe, which are felt to be infectious and/or inflammatory.
== END 2024-01-19 12:41 | disposition home or self-care (01) ==
LOC: HO.CT 12:40
PROVIDERS: PCP Internal Medicine; Visit Provider Physician Assistant Medical
DX: Z12.2 Encounter for screening for malignant neoplasm of respiratory organs (principal); F17.210 Nicotine dependence, cigarettes, uncomplicated
CPT/HCPCS: 71271

== ENCOUNTER → 2024-01-19 12:40 | Outpatient (BNV) | payer MEDICARE, SELFPAY | PROVIDERS: PCP Internal Medicine; Visit Provider Radiology Diagnostic Radiology | DX: F17.200 Nicotine dependence, unspecified, uncomplicated (principal) | CPT/HCPCS: 71271 ==

== ENCOUNTER 2024-05-21 14:01 | Emergency (ER) | payer MEDICARE, SELFPAY ==
--- NOTE | ~2024-05-21 | XR_ITS ---
EXAMINATION: XR HUMERUS, LEFT XR SHOULDER, LEFT CLINICAL INFORMATION: Fall, pain COMPARISON: None available. TECHNIQUE: AP and lateral views of the left humerus. FINDINGS: Impacted, comminuted fracture of the humeral head/neck junction and associated soft tissue edema of the left shoulder. The imaged portions of the left elbow are unremarkable. Acromioclavicular alignment is anatomic with mild arthritis of the left acromioclavicular joint. No abnormal soft tissue calcifications. Imaged portions of the lung demonstrate change sutures in the left lung apex and mid lung. No focal consolidation. XR/XR shoulder LT min 2V IMPRESSION: Impacted, comminuted fracture of the proximal left humerus at the head/neck junction. Electronically signed by: Marifer Ford MD 05/21/2024 04:06 PM ANU PÉREZ
--- NOTE | ~2024-05-21 | XR_ITS ---
EXAMINATION: XR HUMERUS, LEFT XR SHOULDER, LEFT CLINICAL INFORMATION: Fall, pain COMPARISON: None available. TECHNIQUE: AP and lateral views of the left humerus. FINDINGS: Impacted, comminuted fracture of the humeral head/neck junction and associated soft tissue edema of the left shoulder. The imaged portions of the left elbow are unremarkable. Acromioclavicular alignment is anatomic with mild arthritis of the left acromioclavicular joint. No abnormal soft tissue calcifications. Imaged portions of the lung demonstrate change sutures in the left lung apex and mid lung. No focal consolidation. XR/XR humerus LT IMPRESSION: Impacted, comminuted fracture of the proximal left humerus at the head/neck junction. Electronically signed by: Marifer Ford MD 05/21/2024 04:06 PM ANU PÉREZ
[2024-05-21 14:28] VITALS: BP 106/53; PULSE 82; RESP 16; TEMP 36.2; O2SAT 96; BMI 26.1
--- NOTE | 2024-05-21 14:28 | ED_ITS ---
HPI - Extremity Injury (Upper) General Chief Complaint: Extremity Injury, Upper Stated Complaint: fall l arm shoulder inj Time Seen by Provider: 05/21/24 17:02 Source: patient and family Mode of arrival: ambulatory Limitations: no limitations History of Present Illness ED Provider: Crys Wiley APRN HPI narrative: 73 yo female right hand dominant who has a past medical history of CAD, COPD, HTN, HLD here with complaints of left arm pain after a slip and fall off of one step hitting LUE. No head strike or LOC. Here with left shoulder pain. No weakness, numbness, tingling of the extremity. Related Data Home Medications ?Medication ?Instructions ?Recorded ?Confirmed aspirin 81 mg tablet,delayed 81 mg PO DAILY 03/04/22 01/13/24 release cholecalciferol (vitamin D3) 25 25 mcg PO DAILY 03/04/22 01/13/24 mcg (1,000 unit) capsule (Vitamin D3) cyclosporine 0.05 % eye drops in a 1 drp ophthalmic (eye) Q12H 03/04/22 01/13/24 dropperette (Restasis) fluticasone 113 mcg-salmeterol 14 1 puff inhalation BID 03/04/22 01/13/24 mcg/actuation breath activated powdr omeprazole 20 mg capsule,delayed 20 mg PO DAILY 06/08/23 01/13/24 release carboxymethylcellulose sodium 0.5 1 drp ophthalmic (eye) BID 01/13/24 01/13/24 % eye drops (Refresh Tears) metoprolol succinate 50 mg 75 mg PO DAILY 01/13/24 01/13/24 tablet,extended release 24 hr Previous Rx's ?Medication ?Instructions ?Recorded valsartan 40 mg tablet 20 mg (1/2 x 40 mg) PO BID 30 days 05/05/24 #30 tabs evolocumab 140 mg/mL subcutaneous 140 mg subcut Q2W 90 days #7 mL 05/16/24 pen injector (Ciaran Pimentel) tramadol 50 mg tablet 50 mg PO Q6H PRN pain #12 tabs 05/21/24 Allergies Allergy/AdvReac Type Severity Reaction Status Date / Time simvastatin Allergy Unknown Verified 05/21/24 14:32 sulfamethoxazole Allergy Unknown Verified 05/21/24 14:32 [From Bactrim] trimethoprim [From Bactrim] Allergy Unknown Verified 05/21/24 14:32 Review of Systems Review of Systems: Yes all other systems are reviewed and are negative Constitutional: Constitutional: Reports no additional constitutional complaints, Denies body ache(s), Denies chills, Denies fever(s), Denies headache(s) and Denies weakness Eyes: Eyes: Reports no additional eye complaints and Denies change in vision ENT: Reports system reviewed and no additional complaints, except as documented, Denies dizziness, Denies headache(s), Denies nasal congestion, D enies nasal discharge and Denies neck pain Cardiovascular: Cardiovascular: Reports no additional cardiovascular complaints, Denies chest pain, Denies leg edema and Denies dyspnea Respiratory: Respiratory: Reports no additional respiratory complaints, Denies cough and Denies dyspnea Gastrointestinal: Gastrointestinal: Reports no additional gastrointestinal complaints, Denies abdominal pain, Denies diarrhea, Denies nausea and Denies vom iting Genitourinary: Genitourinary: Reports no additional female genitourinary complaints and Denies urinary incontinence Musculoskeletal: Musculoskeletal: Reports no additional musculoskeletal complaints, Denies back pain, Reports arthralgias, Denies joint swelling, Reports limited range of motion, Denies neck pain, Denies numbness and Denies tingling Integumentary/Breasts: Skin/Breast: Reports system reviewed and no additional complaints, except as docu and Denies rash Neurologic: Reports system reviewed and no additional complaints, except as documented, Denies Abnormal speech present, Denies dizziness, Denies headache(s), Denies numbness, Denies tingling and Denies weakness [facility] Past Medical History Attestation statement: The following information was validated with the patient. Source: old records reviewed and nursing notes reviewed Medical History Nicotine dependence, cigarettes, uncomplicated HTN (hypertension) Interstitial lung disease History of COVID-19 (~2020) Hyperlipidemia Depression Vitamin D deficiency IFG (impaired fasting glucose) GERD (gastroesophageal reflux disease) Hypercholesterolemia Paraseptal emphysema Osteopenia (~2003) Surgical History History of cardiac cath Hx of dilation and curettage History of lung biopsy History of esophagogastroduodenoscopy (EGD) History of colonoscopy History of tubal ligation Family History Family History Father CVA (cerebral vascular accident) Mother DM2 (diabetes mellitus, type 2) Social History Social History Patient Tobacco Use Status: Current everyday Tobacco user Tobacco use type: Cigarette Cigarettes Per Day: 15 Physical Exam Vital Signs: Vital Signs: Last Vital Signs Temp 97.2 F 05/21/24 14:28 Pulse 82 05/21/24 14:28 Resp 16 05/21/24 14:28 BP 106/53 L 05/21/24 14:28 Pulse Ox 96 05/21/24 14:28 O2 Del Method Room Air 05/21/24 14:28 BMI result Body Mass Index 26.1 Const: General: cooperative, healthy appearing, comfortable and no acute distress Orientation/consciousness: patient oriented x3 Limitations: no limitations HEENT: Head: Yes normal to inspection Ears: hearing grossly normal bilaterally General nose exam: Normal external nose present Face and sinus: Yes normal facial exam Mouth: Normal oral and palatal mucosa present Throat: Yes posterior oropharynx normal Eyes: General: appearance normal, both eyes and all related structures Pupils: Equal, round and reactive pupils present Neck: Neck: Yes normal visual inspection Chest: Chest palpation & inspection: normal inspection of the chest Resp: Effort & Inspection: normal respiratory effort Auscultation: clear to auscultation bilaterally Cardio: Rate: regular rate Rhythm: regular rhythm Peripheral pulses: Peripheral pulses 2+ throughout GI: Inspection: Yes normal to inspection Palpation (GI): Soft to palpation and nontender Auscultation: normal bowel sounds Back/Spine/Pelvis: Thoracic/Lumbar Spine: thoracic and lumbar spine normal to inspection Skin: General skin exam: no rashes or lesions noted Neuro: General: patient oriented x3, no focal motor deficits and normal sensation to monofilament Cranial nerves: Yes Equal, round and reactive pupils present Cognition (Neuro): normal cognition Speech: No Abnormal speech present Gait exam (Neuro): Normal gait present Motor exam (neuro): 5/5 motor strength present throughout Extrem: Other: Pain on palpation to left shoulder with swelling. Limited ROM d/t pain. No pain on palpation over distal joints with full active and passive range of motion of distal joints. 2+ radial and ulnar pulses. Normal sensation. General: Yes normal to inspection Course Course Course Narrative: This is an RME performed by Carolyn Sesay CNP: Additional HPI, ROS, PE not included below will be deferred to primary provider. Patient is a 73 old female presents emergency department for evaluation. Reports his walking down 3 stairs, the last step does not have access to the railing, reports that her left leg got weak missing the last step resulting in a fall onto her left shoulder. Reports that she felt a pop. Patient denies any head strike there was no loss of consciousness, fall was witnessed by who also states that she did not strike her head. Reports pain is primarily to the mid humerus, but has pain to the shoulder if palpating. No numbness or tingling. 2+ radial pulse. Arm is in a sling brought from home. Medical Decision Making Medical Decision Making MDM Narrative: 73 yo female right hand dominant who has a past medical history of CAD, COPD, HTN, HLD here with complaints of left arm pain after a slip and fall off of one step hitting LUE. No head strike or LOC. Here with left shoulder pain. No weakness, numbness, tingling of the extremity. Pain on palpation to left shoulder with swelling. Limited ROM d/t pain. No pain on palpation over distal joints with full active and passive range of motion of distal joints. 2+ radial and ulnar pulses. Normal sensation. Will check x-rays Differential Diagnosis Differential Diagnoses: The differential diagnosis associated with the presentation includes Contusion, fracture, dislocation Low suspicion for vascular injury Admission/Observation Consideration of admission/observation: Escalation of care including admission/observation considered low Suspicion for vascular injury, complex fracture, dislocation requiring advanced imaging, urgent orthopedic consultation and or admission Independent Interpretation I performed an independent interpretation of an: Plain X-Ray Interpretation: I independently viewed the x-ray and agree with the radiology report Radiology Impression Discussion of test interpretation with radiology: I have reviewed the radiologist's reading. Radiologist Impression: [address] [address] XRay Report Signed with Sal Patient: Roro Tam MR#: [id number] : 1950 Acct:[id number] Age/Sex: 73 / F ADM Date: 05/21/24 Loc: HO.ED Attending Dr: Ordering Physician: Palma Sesay CNP Date of Service: 05/21/24 Procedure(s): XR shoulder LT min 2V Accession Number(s): [id number] cc: Palma Sesay CNP; Koko Montgomery MD~ ADDENDUM ADDENDUM #1 Results received by Palma STANLEY on 05/21/2024 at 4:28 PM. Electronically signed by: Marifer Ford MD 05/21/2024 04:32 PM EST RP Addendum Dictated By: Hannah Ford Addendum Signed By: <Electronically signed by Hannah Ford in OV> 05/21/24 1632 Addendum Cosigned By: DD/ /05/1430 TD/TT: 05/21/2404/05/1459 EXAMINATION: XR HUMERUS, LEFT XR SHOULDER, LEFT CLINICAL INFORMATION: Fall, pain COMPARISON: None available. TECHNIQUE: AP and lateral views of the left humerus. FINDINGS: Impacted, comminuted fracture of the humeral head/neck junction and associated soft tissue edema of the left shoulder. The imaged portions of the left elbow are unremarkable. Acromioclavicular alignment is anatomic with mild arthritis of the left acromioclavicular joint. No abnormal soft tissue calcifications. Imaged portions of the lung demonstrate change sutures in the left lung apex and mid lung. No focal consolidation. XR/XR shoulder LT min 2V IMPRESSION: Impacted, comminuted fracture of the proximal left humerus at the head/neck junction. Electronically signed by: Marifer Ford MD 05/21/2024 04:06 PM EST RP Independent Historian Clinical information obtained from an independent historian. History obtained from or confirmed by: Spouse Tests considered The following testing was considered but not selected: low Suspicion for vascular injury, complex fracture, dislocation requiring advanced imaging Prescription Management I considered prescription management with: Pain Medication Procedures Orthopedic Splinting/Casting Injury #1: Side: left Upper Extremity Injury Location: shoulder Upper Extremity Immobilizer: sling/shoulder immobilizer Discharge Plan Discharge Clinical Impression: Fracture of humerus Patient Disposition: Home, Self-Care Instructions: Arm Fracture in Adults (ED) Prescriptions: New tramadol 50 mg tablet 50 mg PO Q6H PRN (Reason: pain) Qty: 12 0RF No Action valsartan 40 mg tablet 20 mg PO BID 30 Days Qty: 30 5RF Rx Instructions: Dose reduced Repatha SureClick 140 mg/mL pen injector 140 mg subcut Q2W 90 Days Qty: 7 3RF aspirin [Aspir-81] 81 mg Tablet,Delayed Release (Dr/Ec) 81 mg PO DAILY fluticasone propion-salmeterol 113-14 mcg/actuation aerosol powdr breath activated 1 puff inhalation BID cholecalciferol (vitamin D3) [Vitamin D3] 25 mcg (1,000 unit) Capsule 25 mcg PO DAILY cyclosporine [Restasis] 0.05 % Dropperette 1 drp OPHTHALMIC (EYE) Q12H omeprazole 20 mg capsule,delayed release(DR/EC) 20 mg PO DAILY metoprolol succinate 50 mg tablet extended release 24 hr 75 mg PO DAILY Rx Instructions: Dose increased carboxymethylcellulose sodium [Refresh Tears] 0.5 % drops 1 drp ophthalmic (eye) BID Referrals: [facility] [Provider Group] - 1 week Print Language: Latvian
[2024-05-21] MEDS: traMADoL HCL 50 MG TABLET PO (17:39)
[2024-05-21 17:43] VITALS: BP 106/53; PULSE 82; RESP 16; TEMP 36.2; O2SAT 96
== END 2024-05-21 17:44 | disposition home or self-care (01) ==
LOC: HO.ED 17:29
PROVIDERS: Emergency Provider Emergency Medicine; PCP Internal Medicine
DX: S42.292A Other displaced fracture of upper end of left humerus, initial encounter for closed fracture (principal); W10.8XXA Fall (on) (from) other stairs and steps, initial encounter; Y93.9 Activity, unspecified; Y92.9 Unspecified place or not applicable; Y99.9 Unspecified external cause status
CPT/HCPCS: 73030; 73060; 99283

== ENCOUNTER 2024-05-30 12:51 | Outpatient (REF) | payer MEDICARE, SELFPAY | END 2024-05-30 12:52 | disposition home or self-care (01) | LOC: HO.HOSX 12:51 | PROVIDERS: Visit Provider Physician Assistant | DX: S42.202A Unspecified fracture of upper end of left humerus, initial encounter for closed fracture (principal) | CPT/HCPCS: 73030; 99202 ==

== ENCOUNTER 2024-05-30 13:12 | Outpatient (AMB) | payer MEDICARE, SELFPAY ==
--- NOTE | 2024-05-30 13:27 | A.OFFVIS_ITS ---
Intake Visit Reasons: FC- Fracture of humerus, left Intake Note: Roro a 73 year old left hand dominant female who presents today for an ER follow up of left humerus fx, DOI 05/21/24. Patient reports that she had a fall from missing step when her leg gave out, she was seen at [facility] where x-rays were taken and placed in a sling. She mentions that she is having a lot of soreness. Allergies simvastatin Allergy (Verified 05/30/24 13:29) Unknown sulfamethoxazole [From Bactrim] Allergy (Verified 05/30/24 13:29) Unknown trimethoprim [From Bactrim] Allergy (Verified 05/30/24 13:29) Unknown HPI HPI FC- Fracture of humerus, left: Details: 73-year-old female presents to the office today for an injury she sustained to her left shoulder on 05/21/2024. She was going down the stairs when her knee gave out she fell. She was seen in the emergency department where x-rays revealed a left proximal humerus fracture she was placed in a sling and referred to our office for ortho eval. She states since she was released from the emergency department she has discontinue the use of her sling. [facility] Medical History Nicotine dependence, cigarettes, uncomplicated HTN (hypertension) Interstitial lung disease History of COVID-19 (~2020) Hyperlipidemia Depression Vitamin D deficiency IFG (impaired fasting glucose) GERD (gastroesophageal reflux disease) Hypercholesterolemia Paraseptal emphysema Osteopenia (~2003) Surgical History History of cardiac cath Hx of dilation and curettage History of lung biopsy History of esophagogastroduodenoscopy (EGD) History of colonoscopy History of tubal ligation Family History Father CVA (cerebral vascular accident) Mother DM2 (diabetes mellitus, type 2) Social History (Updated 05/30/24 @ 13:30 by Dhruv Hernandez) Patient Tobacco Use Status: Current everyday Tobacco user Tobacco use type: Cigarette Cigarettes Per Day: 15 Current occupational status: retired Current occupation: left hand dominant Review of Systems Const All systems reviewed & are unremarkable except as noted in HPI and below Physical Exam Const General: cooperative and no acute distress Orientation/consciousness: patient oriented x3 Resp Effort & Inspection: normal respiratory effort and able to speak in complete sentences Cardio Peripheral pulses: Peripheral pulses 2+ throughout Neuro General: patient oriented x3 Extrem Other: Left shoulder normal to inspection. Swelling and tenderness over the proximal humerus. Anterior deltoid sensation intact. Left elbows normal to inspection no open wounds no swelling no tenderness to palpation. Elbow and wrist ROM intact. NVI. Office Procedures AMB Fracture Care Fracture Billing Code: Fracture Billing Code Results Reviewed Results Reviewed: X-rays of the left shoulder obtained in the office today show proximal humerus fracture with stable positioning compared to previous films. Assessment & Plan Assessment & Plan (1) Closed fracture of left proximal humerus: Code(s): S4 - Unspecified fracture of upper end of left humerus, initial encounter for closed fracture Category: Medical Plan: She can discontinue the use of the sling as long as she is not bringing her arm overhead. I did recommend she wear it out in public for safety. She can use while sleeping if she moves a lot. Otherwise she can allow her arm to hang at her side. She can bend at the elbow to do fine tasks. I did show her how to perform scapular stabilization techniques. I did put an order in for physical therapy for gentle range of motion and cap periscapular stabilization. I educated her on the risk of smoking and bone healing. She will see me back in 4-6 weeks with x-rays sooner if needed. Orders: Orders PT Evaluation and Treatment Today S4 - Unspecified fracture of upper end of left humerus, initial encounter for closed fracture XR shoulder LT min 2V Today M25.512 - Pain in left shoulder Coding Level of Care Code New Pt Level 3 (61128) Complex EM visit Add On G2211 Diagnoses Closed fracture of left proximal humerus S4 CPT Codes Fracture Care - Fracture Billing Code: Fracture Billing Code ([id number])
== END 2024-05-30 13:42 | disposition home or self-care (01) ==
PROVIDERS: PCP Internal Medicine; Visit Provider Physician Assistant
DX: S42.202A Unspecified fracture of upper end of left humerus, initial encounter for closed fracture (principal); W10.8XXA Fall (on) (from) other stairs and steps, initial encounter
CPT/HCPCS: 99203; G2211

== ENCOUNTER 2024-06-30 13:31 | Outpatient (AMB) | payer MEDICARE, SELFPAY ==
--- NOTE | 2024-06-30 13:42 | A.OFFVIS_ITS ---
Intake Visit Reasons: OV-LT humerus fx, DOI 05/21/24 w/ XR Intake Note: Roro a 73 year old left hand dominant female who presents today for a follow up of left humerus fx, DOI 05/21/24. Patient reports she is doing well, she has had improvement in pain since her last visit. States hardly any pain only with certain activities. Finds relief with Tylenol. Allergies simvastatin Allergy (Verified 06/30/24 13:45) Unknown sulfamethoxazole [From Bactrim] Allergy (Verified 06/30/24 13:45) Unknown trimethoprim [From Bactrim] Allergy (Verified 06/30/24 13:45) Unknown Medication List - Last Reconciled 06/30/24 by Britta Beauchamp PA-C aspirin 81 mg PO DAILY carboxymethylcellulose sodium 0.5% (Refresh Tears) 1 drp ophthalmic (eye) BID cholecalciferol (vitamin D3) (Vitamin D3) 25 mcg PO DAILY cyclosporine 0.05% (Restasis) 1 drp ophthalmic (eye) Q12H evolocumab (Repatha SureClick) 140 mg subcut Q2W 90 days fluticasone propion-salmeterol 113-14 mcg/actuation 1 puff inhalation BID metoprolol succinate ER 75 mg PO DAILY omeprazole 20 mg PO DAILY tramadol 50 mg PO Q6H PRN valsartan 20 mg (1/2 x 40 mg) PO BID 30 days HPI HPI OV-LT humerus fx, DOI 05/21/24 w/ XR: Details: 73-year-old left hand dominant female who returns to the office today for a follow-up of left humerus fracture, 05/21/24. She states she has improvement and is doing well overall. She hardly has any pain only with certain activities. She finds relief with Tylenol. She has no other concerns today. [facility] Medical History Nicotine dependence, cigarettes, uncomplicated HTN (hypertension) Interstitial lung disease History of COVID-19 (~2020) Hyperlipidemia Depression Vitamin D deficiency IFG (impaired fasting glucose) GERD (gastroesophageal reflux disease) Hypercholesterolemia Paraseptal emphysema Osteopenia (~2003) Surgical History History of cardiac cath Hx of dilation and curettage History of lung biopsy History of esophagogastroduodenoscopy (EGD) History of colonoscopy History of tubal ligation Family History Father CVA (cerebral vascular accident) Mother DM2 (diabetes mellitus, type 2) Social History (Updated 05/30/24 @ 13:30 by Dhruv Hernandez) Patient Tobacco Use Status: Current everyday Tobacco user Tobacco use type: Cigarette Cigarettes Per Day: 15 Current occupational status: retired Current occupation: left hand dominant Review of Systems Const All systems reviewed & are unremarkable except as noted in HPI and below Physical Exam Const General: cooperative and no acute distress Orientation/consciousness: patient oriented x3 Resp Effort & Inspection: normal respiratory effort and able to speak in complete sentences Cardio Peripheral pulses: Peripheral pulses 2+ throughout Neuro General: patient oriented x3 Extrem Other: Left shoulder normal to inspection. No Swelling or tenderness over the proximal humerus. Anterior deltoid sensation intact. Left elbows normal to inspection no open wounds no swelling no tenderness to palpation. Shoulder FF 40, ER to 45. Elbow and wrist ROM intact. NVI. Results Reviewed Results Reviewed: X-rays of the left shoulder obtained in the office today show proximal humerus fracture with stable positioning compared to previous films. Assessment & Plan Assessment & Plan (1) Closed fracture of left proximal humerus: Code(s): S42.A - Unspecified fracture of upper end of left humerus, initial encounter for closed fracture Category: Medical Qualifiers: Encounter type: initial encounter Fracture morphology: other fracture Fracture alignment: nondisplaced Qualified Code(s): S42.295A - Other nondisplaced fracture of upper end of left humerus, initial encounter for closed fracture Plan Patient begin a course of physical therapy to work on ROM till tolerance and periscapular stabilization. I did recommend she avoids overhead lifting and repetitive motions for the next 6 weeks which she will gradually improve on with therapy. She will see me back in 6-8 weeks with new x-rays, sooner if needed. Orders: Orders XR shoulder LT min 2V Today M25.512 - Pain in left shoulder PT Evaluation and Treatment Today S42.202A - Unspecified fracture of upper end of left humerus, initial encounter for closed fracture Patient Instructions: Scribed for Britta Beauchamp PA-C, by Medardo Giron medical laboratory technical officer, on 06/30/2024 at 1:45 PM EST.? I, Britta Beauchamp PA-C, have personally reviewed and agree with the information entered by the scribe. Coding Level of Care Code Global (79798) Diagnoses Other closed nondisplaced fracture of proximal end of left humerus, initial encounter S42.295A Encounter type: initial encounter Fracture morphology: other fracture Fracture alignment: nondisplaced
== END 2024-06-30 14:13 | disposition home or self-care (01) ==
PROVIDERS: PCP Internal Medicine; Visit Provider Physician Assistant
DX: S42.295A Other nondisplaced fracture of upper end of left humerus, initial encounter for closed fracture (principal)
CPT/HCPCS: 99213

== ENCOUNTER 2024-06-30 13:31 | Outpatient (REF) | payer MEDICARE, SELFPAY ==
--- NOTE | ~2024-06-30 | XR_ITS ---
EXAMINATION: XR SHOULDER LEFT CLINICAL INFORMATION: Pain in left shoulder M25.512. COMPARISON: XR Left shoulder 05/30/2024 TECHNIQUE: AP external rotation, and scapular Y views of the left shoulder. FINDINGS: Comminuted mildly displaced proximal humerus fracture redemonstrated unchanged in appearance and alignment. Slight inferior subluxation of the humeral head less than previous. Suspect at least some osseous bridging across fracture lines. Mild arthrosis of the acromioclavicular joint. XR/XR shoulder LT min 2V IMPRESSION: 1. Suspect at least some healing of the proximal humerus fracture. 2. Slight inferior subluxation of the humeral head less than previous. Electronically signed by: Jacob Liz MD 07/03/2024 09:47 AM ANU PÉREZ
== END 2024-06-30 13:32 | disposition home or self-care (01) ==
LOC: HO.HOSX 13:31
PROVIDERS: PCP Internal Medicine; Visit Provider Physician Assistant
DX: M25.512 Pain in left shoulder (principal); S42.295A Other nondisplaced fracture of upper end of left humerus, initial encounter for closed fracture
CPT/HCPCS: 73030; 99212

== ENCOUNTER 2024-08-11 10:10 | Outpatient (REF) | payer MEDICARE, SELFPAY ==
--- OUTSIDE RECORDS SUMMARY | 2024-08-12 10:52 | XMS_ITS | Encounter Summary ---
Author Organization [facility] Address [phone] [facility] [place] [address] Care Team Providers Care Engine Head Repairer Name Role Phone Koko Montgomery MD Primary Care Provider [phone] Encounter Details Date Type Department Care Team (Late st Contact Info) Description 03/09/2018 Procedure Pass [facility], Ct Scan - [address] [address] Social History Tobacco Use Types Packs/Day Years Used Date Smoking Tobacco: Every Day Cigarettes 1 50 Smokeless Tobacco: Never Alcohol Use Standard Drinks/Week Comments No 0 (1 standard drink = 0.6 oz pur e alcohol) Sex and Gender Information Value Date Recorded Sex Assigned at Female 07/24/2022 1:57 PM EST Gender Identity Female 07/24/2022 1:57 PM EST Sexual Orientation Straight 07/24/2022 1: 57 PM EST documented as of this encounter Plan of Treatment Upcoming Encounters Date Type Department Care Team (Late st Contact Info) Description 12/02/2024 1:30 PM EDT Appointment [facility] Internal Medicine [address] [place] [address] Koko Montgomery MD [address] [place] [address] [email or web address] documented as of this encounter Visit Diagnoses Not on filedocumented in this encounter Additional Health Concerns Assessment Noted Time PHQ-2 Depression Total Score: 0 09/07/19 18 8:34 AM EST documented as of this encounter Care Teams Engine Head Repairer Relationship Specialty Start Date End Date Koko Montgomery MD [address] [place] [id number] [email or web address] PCP - General 04/28/17 documented as of this encounter Additional Source Comments The information contained in this document represents components of the legal health record. It is not the complete legal health record.[facility]
--- OUTSIDE RECORDS SUMMARY | 2024-08-12 10:52 | XMS_ITS | Encounter Summary ---
Author Organization [facility] Address [phone] [facility]ly [facility] [place] [address] Care Team Providers Care Documentum Consultant Name Role Phone Koko Montgomery MD Primary Care Provider [phone] Encounter Details Date Type Department Care Team (Late st Contact Info) Description 09/20/2021 Procedure Pass [facility] - [address] [place] [address] Social History Tobacco Use Types Packs/Day Years Used Date Smoking Tobacco: Every Day Cigarettes 1 50 Smokeless Tobacco: Never Comments:0.75-1 ppd Alcohol Use Standard Drinks/Week Comments Yes 0 (1 standard drink = 0.6 oz pur e alcohol) once every few months Sex and Gender Information Value Date Recorded Sex Assigned at Female 07/24/2022 1:57 PM EST Gender Identity Female 07/24/2022 1:57 PM EST Sexual Orientation Straight 07/24/2022 1: 57 PM EST documented as of this encounter Plan of Treatment Upcoming Encounters Date Type Department Care Team (Late st Contact Info) Description 12/02/2024 1:30 PM EDT Appointment [facility] Internal Medicine [address] [place], [place] [id number] Koko Montgomery MD [address] [place] [address] [email or web address] documented as of this encounter Visit Diagnoses Not on filedocumented in this encounter Additional Health Concerns Assessment Noted Time PHQ-2 Depression Total Score: 0 09/21/19 22 12:52 PM EST documented as of this encounter Care Teams Documentum Consultant Relationship Specialty Start Date End Date Koko Montgomery MD [address] [place] [address] [email or web address] PCP - General 04/28/17 documented as of this encounter Additional Source Comments The information contained in this document represents components of the legal health record. It is not the complete legal health record.[facility]
--- OUTSIDE RECORDS SUMMARY | 2024-08-12 10:52 | XMS_ITS | Encounter Summary ---
Author Organization [facility] Address [phone] [facility] [place] [address] Care Team Providers Care Associate Merchant Name Role Phone Koko Montgomery MD Primary Care Provider [phone] Reason for Referral * Physical Therapy (Within 3 days (urgent)) - Pending Review Specialty Diagnoses / Procedures Referred By Contac t Referred To Contact Diagnoses Humerus fracture Koko Montgomery MD [address] [place], [place] Email: [email or web address] [facility] [address] [place] [address] Referral ID Status Reason Start Date Expiration Date V isits Requested Visits Authorized [id number] Pending Review 07/19/2024 07/19/2025 1 1 Scheduling Instructions Please call [facility] directly to be scheduled. [facility] Locations: [address] , [address] [place] P:[phone] [place] [address] [place] [address] P:[phone] [place] [address] P: [phone] [place] [address] [place], [place] P:[phone] [address] [place] [address] P:[phone] Reason for Visit * Reason Onset Date Comments Referral 07/19/2024 Encounter Details Date Type Department Care Team (Late st Contact Info) Description 07/19/2024 Telephone [facility] [place] Internal Medicine [address] [place] [address] Koko Montgomery MD [address] [place] [address] [email or web address] Referral Social History Tobacco Use Types Packs/Day Years Used Date Smoking Tobacco: Every Day Cigarettes 0.7 64.1 Started: 1961 Smokeless Tobacco: Never Comments:0.75-1 ppd-noted 0.5 ppd-noted 03/02/24 Alcohol Use Standard Drinks/Week Comments Yes 0 (1 standard drink = 0.6 oz pure alcohol) once a year, during special events Education Answer Date Recorded Are you interested in more education? Not on alisha e 11/07/2022 Are you concerned about learning? Not on file 11/07/2022 No 11/07/2022 No 11/07/2022 Digital Access Answer Date Recorded No 12/06/2022 No 12/06/2022 Reliable internet access at home? Not on file 12/06/2022 Device with a working camera? Not on file Sex and Gender Information Value Date Recorded Sex Assigned at Female 07/24/2022 1:57 PM EST Gender Identity Female 07/24/2022 1:57 PM EST Sexual Orientation Straight 07/24/2022 1: 57 PM EST documented as of this encounter Progress Notes * Tacho Hodges - 08/09/2024 8:31 AM EST [facility] referral signed/scanned into chart and couriered back to Melissa Brown * Tacho Hodges - 08/04/2024 2:40 PM EST Lizz from [facility] called looking for referral authorization. Explained we have not receivedthe paperwork to sign from the referral dept which we will get hopefully tomorrow and that the provider is out sick right now and unsure if he will be in tomorrow or be back on Thursday but once the paperwork is signed it will go back to the referral dept who will fax the authorization to them once ob tained. [phone] (fax) * Tacho Hodges - 08/04/2024 2:40 PM EST Nurse Triage Encounter Note Reason for Triage Roro Tam contacted office for Referral Call Disposition Disposition Comments: Patient/caregiver understands and will follow disposition: Initial Symptom Screening and Assessment IA None Care Advice No Care Advice given for this encounter. Patient will call back with additional questions or if symptoms change or worsen Tacho Hodges Reason for Disposition and Assessment * Casie Cage - 08/04/2024 2:19 PM EST Lizz, from [facility], called back regarding this referral. Pt has an appt today and referral was not found. I explained the [facility] situation to them and stated that we are in the process of authorizing her visit. Please advise, Central Support Drupal Developer (Please do not reply to this user; this inbox is not monitored.) Thank you. * Melissa Arango - 08/04/2024 8:24 AM EST Referral [id number] [facility] paper form filled out and sent to Dr. Montgomery for signature for dates of service 07/15/2024 and 07/19/2024. [facility] read the 07/15/2024 on previous form as an 8 and not a 3 and approved the wrongdate and they will not correct. Must do another form. Once signed, scan signed form to patient's chart and send original form to [facility], [address], 2nd [address] for complet ion. Thank you. * Cynthia Carrington - 07/21/2024 2:45 PM EST Patient came into to request referral for [facility] - explained to patient it is already being worked on by referral dept * Melissa Arango - 07/21/2024 11:28 AM EST Referral [id number] [facility] paper form filled out and sent to PCP for signature. Once signed, scan signed form to patient's chart and send original form to Melissa Murillo [facility], [address] [place] [address] for completion. * Koko Montgomery MD - 07/19/2024 6:44 PM EST Referral signed. * Carroll Abrams - 07/19/2024 3:12 PM EST Referral Request 1. Name of the office where the patient has been seen/requests to be seen: [facility] 2. Reason for referral/specialist appointment and the diagnosis code: PT - fractured humerus 2A. Have you seen this provider before for this same problem? YES/NO: no 2B. If this is a new problem, is your PCP aware of your symptoms? yes 3. Date of appointment(s):07/15/2024 4. Name of specialist provider: n/a 5. NPI number to enter for referral authorization (enter n/a if not available): [email or web address] 6. Number of visits requested for referral: 12 7. Fax number of specialist office to send referral authorization: [email or web address] documented in this encounter Plan of Treatment Upcoming Encounters Date Type Department Care Team (Late st Contact Info) Description 12/02/2024 1:30 PM EDT Appointment [facility] Internal Medicine [address] [place] [address] Koko Montgomery MD [address] [place], [place] [phone] [email or web address] Scheduled Referrals Name Type Priority Associated Diagnoses Orde r Schedule [facility] Outpatient Referral Routine Humerus fracture Ordered: 07/19/2024 documented as of this encounter Visit Diagnoses Diagnosis Humerus fracture- Primary Closed fracture of unspecified part of humerus documented in this encounter Additional Health Concerns Assessment Noted Time PHQ-2 Depression Total Score: 0 07/07/20 24 2:03 PM EST documented as of this encounter Care Teams Associate Merchant Relationship Specialty Start Date End Date Koko Montgomery MD [address] [place] [address] [email or web address] PCP - General 04/28/17 documented as of this encounter Additional Source Comments The information contained in this document represents components of the legal health record. It is not the complete legal health record.[facility]
--- OUTSIDE RECORDS SUMMARY | 2024-08-12 10:52 | XMS_ITS | Data Portability ---
[facility] Organization [facility] Address [address] [place] [address] Care Team Providers Care Outreach Representative Name Role Phone KEENAN NUNEZ OTHER BISHOP CHAVIRA Advisory Intern Unavailable TYSHAWN TIDWELL Primary Care Provider [phone] Assessment Encounter Date Assessment Date Assessment LastModified by Organization Details LastModified Time 04/23/2018 04/23/2018 Pt. presents for follow-up of non-toxic multinodular goiter. Hx of benign biopsy in 2012. left mid and left lower: benign follicular cells and colloid. Pre-diabetes with a1c (2018) of 5.9%. (+) Family hx. Discussed approaches to reducing risk for progression to T2DM. Active smoker- 1ppd. Counseled patient in importance of reducing smoking and possible strategies to achieve this goal. Also encourage BMD given active smoking and post-menopausal status. ATTENDING NOTE: [facility] services reviewed and confirmed by me. Summary represents my assessment and confirmation of history, physical and plan as outlined. [email or web address] Not available 05/08/2018 18:58:10 04/22/2019 04/22/2019 PCP: Ulises. F/U non-toxic multinodular goiter. Hx of benign biopsy in 2012. left mid and left lower: benign follicular cells and colloid. 2019- No significant change in 2 nodules but new additional nodule < 1.1 cm. Hx of pre-diabetes with a1c (2018) of 5.9%. (+) Family hx. Discussed approaches to reducing risk for progression to T2DM. Not sure of f/u testing- no copies received . Active smoker- 1ppd. Counseled patient in importance of reducing smoking and possible strategies to achieve this goal. Says she had BMD which showed osteopenia and not much change [email or web address] Not available 04/23/2019 13:14:20 03/21/2020 03/21/2020 PCP: Ulises. F/U non-toxic multinodular goiter. Hx of benign biopsy in 2013 (Left mid and left lower: benign follicular cells and colloid). 2019- No significant change in 2 nodules but new additional nodule < 1.1 cm. 2020: No change in left 3 nodules. Small colloid cyst on right. Hx of pre-diabetes with a1c (2018) of 5.9%. (+) Family hx. Discussed approaches to reducing risk for progression to T2DM. 2019: Not sure of f/u testing- no copies received . Active smoker- 1/2- 1ppd (first says 1/2 but then says no change from last year. Says she doesn't know how long a pack last). Counseled patient in importance of reducing smoking and possible strategies to achieve this goal. Says she had BMD which showed osteopenia and not much change phone visit= 22 minutes [email or web address] Not available 03/21/2020 14:44:35 02/11/2022 02/11/2022 PCP: Ulises. NON-TOXIC MULTINODULAR GOITER Hx of benign biopsy in 2013 (Left mid and left lower: benign follicular cells and colloid). 2019- No significant change in 2 nodules but new additional nodule < 1.1 cm. 2020: No change in left 3 nodules. Small colloid cyst on right. PRE-DIABETES with a1c (2018) of 5.9%. (+) Family hx. Discussed approaches to reducing risk for progression to T2DM. 2019: Not sure of f/u testing- no copies received . OSTEOPENIA: SMOKER Active smoker- 1/2- 1ppd (first says 1/2 but then says no change from last year. Says she doesn't know how long a pack last). Counseled patient in importance of reducing smoking and possible strategies to achieve this goal. Says she had BMD which showed osteopenia and not much change Enhanced Provider time spent performing enhanced activities which may include, but are not limited to: reviewing tests, obtaining and/or reviewing patient history; ordering medications, test or procedures; EMR documentation; communication with patient, family, caregiver(s), VNA; pre-visit prep time communication with specialists, ER staff. Time spent: 38 (minutes) 03/03: Thyroid stable LIPIDS: very high. says can't tolerate statins. Try rosuva 10 mg TIS. tried injectable and had bad s/e. Pre-DM: BG OK but a1c slightly high smoker- 3-5 minutes of counseling. bone health- willing to update BMD. [email or web address] Not available 02/11/2022 19:34:57 06/02/2023 06/02/2023 PCP: Ulises. NON-TOXIC MULTINODULAR GOITER Hx of benign biopsy in 2013 (Left mid and left lower: benign follicular cells and colloid). 2019- No significant change in 2 nodules but new additional nodule < 1.1 cm. 2020: No change in left 3 nodules. Small colloid cyst on right. PRE-DIABETES with a1c (2018) of 5.9%. (+) Family hx. Discussed approaches to reducing risk for progression to T2DM. 2019: Not sure of f/u testing- no copies received. 06/04: a1c holding around 6. FBG not over 100 OSTEOPOROSIS: BMD worse in 07/03 involving spine and hip. - Doesn't want to take meds in case needs dental work but hasn't been to [facility] in years. SMOKER Active smoker- 1/2- 1ppd (first says 1/2 but then says no change from last year. Says she doesn't know how long a pack last). Counseled patient in importance of reducing smoking and possible strategies to achieve this goal. 06/04: Smoking up 3/4 to 1 ppd. Enhanced Provider time spent performing enhanced activities which may include, but are not limited to: reviewing tests, obtaining and/or reviewing patient history; ordering medications, test or procedures; EMR documentation; communication with patient, family, caregiver(s), VNA; pre-visit prep time communication with specialists, ER staff. Time spent: 39 (minutes) 03/03: Thyroid stable LIPIDS: very high. says can't tolerate statins. Try rosuva 10 mg TIS. tried injectable and had bad s/e. Pre-DM: BG OK but a1c slightly high smoker- 3-5 minutes of counseling. bone health- willing to update BMD. 06/04: Thyroid fairly stable. Small increase in one benign and other (not biopsied). Osteoporosis: Smoking: She doesn't want to do anything at this time. Cholesterol- very serious with LDL over 300. and metabolic syndrome. Willing to try another med. try prava. [email or web address] Not available 06/02/2023 14:25:16 Plan of Treatment Reminders Order Date Submit Date Provider Last Modified By Organization Details Last Modified Time Details Appointments None recorded. Lab lipid panel, serum 2021 023 [facility], [address], [place], [address], 4 14:17:23 Referral None recorded. Procedures None recorded. Surgeries None recorded. Imaging bone density - Please report t-scores from all sites and compare with previous from 2010. 2021 022 [facility] (Imaging), [address], [place], [address], 2 19:32:30 Medication Orders rosuvasta tin 10 mg tablet [address]/[facility]armacy #[id number], [address] [place], [address], 3 13:30:23 pravastat in 20 mg tablet 2022 023 [facility]/Pharmacy #[id number], [address] [place], [address], 3 14:25:56 Patient TargetsNo targets recorded. Patient Instructions Encounter Date Encounter Id Patient Instructions Last Modified By Organization Details Last Modified Time 04/23/2018 [id number] deciding about using medicines to quit smoking [email or web address] Not available 05/08/2018 18:59:15 Quitting Tobacco: Care Instructions [email or web address] Not available 05/08/2018 18:59:15 - Regular exercise can help to lower blood sugar. Your exercise goal is 30 minutes, 5 days per week. Increase your water intake to 7-8 glasses per day. - Eat a healthy diet; fruits and vegetables are encouraged. Limit soda and sweets. - As we discussed at your visit your smoking is a major health risk. It is important to me that we work toward you being smoke free in order to reduce your risk of lung cancer and chronic lung disease. Please work on our plan for you to be smoke free and let me know if you need more resources on how to become smoke free. [email or web address] Not available 04/23/2018 18:03:00 Counseling done {{Patient not ready to quit Contemplati ng quitting Taperin g Cigarettes casimiro d up for support prescrip tion for stop smoking medication given}} {{Patient not ready to quit Contemplati ng quitting Taperin g Cigarettes casimiro d up for support prescrip tion for stop smoking medication given}} Goal for follow up visit {{adding exercise regular meals stress management impro ving sleep therapist identifying sponsor}} {{adding exercise regular meals stress management impro ving sleep therapist identifying sponsor}} {{adding exercise regular meals stress management impro [employer] sleep therapist identifying sponsor}}My Health To Do List {{go to [place] or call s ign up for ana maría text 2 quit or other stop smoking ana maría contact [employer]}} {{go to [place] or call s ign up for ana maría text 2 quit or other stop smoking ana maría contact [employer]}} {{go to [place] or call s ign up for ana maría text 2 quit or other stop smoking ana maría contact [employer]}} [email or web address] Not available 04/23/2018 15:57:05 04/22/2019 [id number] deciding about using medicines to quit smoking [email or web address] Not available 04/23/2019 13:16:37 Quitting Tobacco: Care Instructions [email or web address] Not available 04/23/2019 13:16:37 - Regular exercise can help to lower blood sugar. Your exercise goal is 30 minutes, 5 days per week. Increase your water intake to 7-8 glasses per day. - Eat a healthy diet; fruits and vegetables are encouraged. Limit soda and sweets. - As we discussed at your visit your smoking is a major health risk. It is important to me that we work toward you being smoke free in order to reduce your risk of lung cancer and chronic lung disease. Please work on our plan for you to be smoke free and let me know if you need more resources on how to become smoke free. [email or web address] Not available 04/22/2019 11:33:34 Counseling done {{Patient not ready to quit Contemplati ng quitting Taperin g Cigarettes casimiro d up for support prescrip tion for stop smoking medication given}} {{Patient not ready to quit Contemplati ng quitting Taperin g Cigarettes casimiro d up for support prescrip tion for stop smoking medication given}} Goal for follow up visit {{adding exercise regular meals stress management impro ving sleep therapist identifying sponsor}} {{adding exercise regular meals stress management impro ving sleep therapist identifying sponsor}} {{adding exercise regular meals stress management impro ving sleep therapist identifying sponsor}} My Health To Do List {{go to [place] or call * sign up for ana maría text 2 quit or other stop smoking ana maría contact [employer]}} {{go to [place] or call s ign up for ana maría text 2 quit or other stop smoking ana maría contact [employer]gov*}} {{go to [place] or call s ign up for ana maría text 2 quit or other stop smoking ana maría contact [employer]gov}} [email or web address] Not available 04/22/2019 12:01:51 03/21/2020 [id number] deciding about using medicines to quit smoking [email or web address] Not available 03/21/2020 14:51:24 Quitting Tobacco: Care Instructions [email or web address] Not available 03/21/2020 14:51:25 - Healthy lifestyle choices can help to lower blood sugar. Your exercise goal is 30 minutes, 5 days per week. Increase your water intake to 7-8 glasses per day. - Eat a healthy diet; fruits and vegetables are encouraged. Limit soda and sweets. - As we discussed at your visit your smoking is a major health risk. It is important to me that we work toward you being smoke free in order to reduce your risk of lung cancer and chronic lung disease. Please work on our plan for you to be smoke free and let me know if you need more resources on how to become smoke free. [email or web address] Not available 03/21/2020 14:50:18 Counseling done {{Patient not ready to quit Contemplati ng quitting Taperin g Cigarettes casimiro d up for support prescrip tion for stop smoking medication given}} {{Patient not ready to quit Contemplati ng quitting Taperin g Cigarettes casimiro d up for support prescrip tion for stop smoking medication given}} Goal for follow up visit {{adding exercise regular meals stress management impro ving sleep therapist identifying sponsor}} {{adding exercise regular meals stress management impro ving sleep therapist identifying sponsor}} {{adding exercise regular meals stress management impro ving sleep therapist identifying sponsor}} My Health To Do List {{go to [place] or call * sign up for ana maría text 2 quit or other stop smoking ana maría contact [employer]}} {{go to [place] or call s ign up for ana maría text 2 quit or other stop smoking ana maría contact [employer]gov*}} {{go to [place] or call s ign up for ana maría text 2 quit or other stop smoking ana maría contact [employer]}} one year (40 minutes)- ultrasound on same day. [email or web address] Not available 03/21/2020 14:50:42 02/11/2022 [id number] - Healthy lifestyle choices can help to lower blood sugar. Your exercise goal is 30 minutes, 5 days per week. Increase your water intake to 7-8 glasses per day. - Eat a healthy diet; fruits and vegetables are encouraged. Limit soda and sweets. - As we discussed at your visit your smoking is a major health risk. It is important to me that we work toward you being smoke free in order to reduce your risk of lung cancer and chronic lung disease. Please work on our plan for you to be smoke free and let me know if you need more resources on how to become smoke free. Not available 02/10/2022 09:41:22 Counseling done {{Patient not ready to quit Contemplati ng quitting Taperin g Cigarettes casimiro d up for support prescrip tion for stop smoking medication given}} {{Patient not ready to quit Contemplati ng quitting Taperin g Cigarettes casimiro d up for support prescrip tion for stop smoking medication given}} Goal for follow up visit {{adding exercise regular meals stress management impro nidhi sleep therapist identifying sponsor}} {{adding exercise regular meals stress management impro ving sleep therapist identifying sponsor}} {{adding exercise regular meals stress management impro ving sleep therapist identifying sponsor}} My Health To Do List {{go to [place] or call * sign up for ana maría text 2 quit or other stop smoking ana maría contact [employer]}} {{go to [place] or call s ign up for ana maría text 2 quit or other stop smoking ana maría contact [employer]*}} {{go to [place] or call s ign up for ana maría text 2 quit or other stop smoking ana maría contact [employer]}} one year (40 minutes)- ultrasound on same day. Not available 02/10/2022 09:41:22 06/02/2023 [id number] - Healthy lifestyle choices can help to lower blood sugar. Your exercise goal is 30 minutes, 5 days per week. Increase your water intake to 7-8 glasses per day. - Eat a healthy diet; fruits and vegetables are encouraged. Limit soda and sweets. - As we discussed at your visit your smoking is a major health risk. It is important to me that we work toward you being smoke free in order to reduce your risk of lung cancer and chronic lung disease. Please work on our plan for you to be smoke free and let me know if you need more resources on how to become smoke free. - Try pravastatin for cholesterol. Your values are extremely high and associated with very high risk for heart attack and/or stroke. - Think about options for medications that could reduce your risk for fracture. [email or web address] Not available 06/02/2023 14:24:52 Counseling done {{Patient not ready to quit Contemplati ng quitting Taperin g Cigarettes casimiro d up for support prescrip tion for stop smoking medication given}} {{Patient not ready to quit Contemplati ng quitting Taperin g Cigarettes casimiro d up for support prescrip tion for stop smoking medication given}} Goal for follow up visit {{adding exercise regular meals stress management impro ving sleep therapist identifying sponsor}} {{adding exercise regular meals stress management impro ving sleep therapist identifying sponsor}} {{adding exercise regular meals stress management impro ving sleep therapist identifying sponsor}} My Health To Do List {{go to [place] or call * sign up for ana maría text 2 quit or other stop smoking ana maría contact [employer]}} {{go to [place] or call s ign up for ana maría text 2 quit or other stop smoking ana maría contact [employer]*}} {{go to [place] or call s ign up for ana maría text 2 quit or other stop smoking ana maría contact [employer]}} one year (40 minutes)- ultrasound on same day. Not available 06/01/2023 09:25:33 Reason for Referral None Reported. Results Created Date Observation Date Name Description Value Unit Range Abnormal Flag Note LastModifiedBy Organization Detail LastModifiedTime 04/28/20 18 04/23/2018 US, thyro id OBSERV ATION: Examin ation: Thyroi d ultras ound Indica tion: Follow -up of nodula r goiter . Histor y of benign biopsi es of left nodule s in 2012. Thyroi d ultras ound study was perfor med and multip le static and color flow images were obtain ed. Dimens ions are provid ed as transv erse by daphne al by AP. The right lobe measur es 1.5 x 4.1 x 1.3 cm yieldi ng a volume of 4.2 cc. The lobe is homoge neous in echote xture. There are no nodule s identi fied. The isthmu s measur es 0.2 cm in width. There are no nodule s in the isthmu s. The left lobe measur es 1.8 x 5.1 x 1.9 cm yieldi ng a volume of 9.1 cc. There are 2 nodule s identi fied in the left lobe. Nodule #1: This nodule is in the left lower lobe and measur es 1.7 x 2.4 x 2.1 cm. The margin s are somewh at indist inct. It is solid and hetero geneou s in echote xture with calcif ied streak s that produc e shadow ing. There is a small amount of vascul ar flow to this nodule . Nodule #2: This nodule is in the left middle lobe and measur es 1.4 x 1.4 x 1.3 cm. The margin s are fairly indist inct. It is both solid and cystic and hetero geneou s with some hypere choic foci consis tent with a spongi form nodule . There is some soot blower ior enhanc ement noted. There is a small amount of vascul ar flow noted. Impres tejinder: Normal right lobe and left lobe contai stephany 2 nodule s. The mid-lo be nodule appear s to be spongi form which derian s a very low risk. Compar ed to the previo us study from 2016, the left lower lobe nodule is unchan ged. In fact, neithe r of these nodule s is differ ent from before . The histor y of benign biopsi es from 2012 provid es reassu isis as to the likely benign nature of these nodule s. Ultras ound imagin g can be used to monito r the number , size and charac terist ics of thyroi d nodule s over time. Electr onical ly signed Readin g Physic mena: Bishop shea MD [facility] (Imaging) [address] , [place], [address], 04/22/2019 11:33:21 04/27/20 19 04/22/2019 US, thyro id OBSERV ATION: Examin ation: Thyroi d ultras ound Indica tion: Follow -up of nodula r goiter . Histor y of benign biopsy of 2 left nodule s in 2012. Thyroi d ultras ound study was perfor med and multip le static and color flow images were obtain ed. Dimens ions are provid ed as transv erse by daphne ricks by AP. The right lobe measur es 1.4 x 4.8 x 1.8 cm yieldi ng a volume of 6.3 cc. The lobe is fairly homoge neous in echote xture. There are no discre te nodule seen. The isthmu s measur es 0.35 cm in width. There are no nodule s in the isthmu s. The left lobe measur es 1.5 x 5.8 x 2.3 cm yieldi ng a volume of 10.7 cc. There are 3 nodule s seen in the left lobe. Nodule #1: This nodule is in the left lower lobe and measur es 1.8 x 2.4 x 1.4 cm. The margin s are indist inct. It is solid and hetero geneou s in echote xture. There is a calcif ied streak noted which produc es shadow ing. There is no signif icant vascul arity. Nodule #2: This nodule is in the left mid lobe and measur es 1.5 x 1.5 x 1.1 cm. The margin s are indist inct. It is mostly solid and fairly hetero geneou s in echote xture. There are scatte red hypere choic areas and some eviden ce of soot blower ior enhanc ement. No microc alcifi cation s are seen. There is a very small amount of vascul ar flow noted. Nodule #3: This nodule is in the left mid lobe and measur es 0.8 x 1.1 x 1.0 cm. The nodule is solid and fairly hetero geneou s in echote xture. There are no microc alcifi cation s. There is a small amount of vascul ar flow. Impres tejinder: Nodula r goiter with 3 nodule s seen in the left lobe. Compar ed to the previo us study from 2017, the 2 nodule s that were previo usly seen and biopsi ed in 2012 are either the same or possib ly even smalle r. There is a new nodule (#3) on the curren t study that is relati vely small and does not have any high risk charac terist ics. Given the presen ce of a new nodule , it may be worth a repeat ultras ound in one year. If these remain stable , follow up can then be based on clinic millicent dominique. Electr onical ly signed Readin g Physic mena: Bishop shea MD [facility] (Imaging) [address] , [place], [address], 07/24/2019 17:04:54 04/17/20 20 03/16/2020 US, thyro id OBSERV ATION: Examin ation: Thyroi d ultras ound. Indica tion: Follow -up of nodula r goiter . Histor y of benign biopsy of left lower and left middle nodule s in 2012. Thyroi d ultras ound study was perfor med and multip le static and color flow images were obtain ed. Dimens ions are provid ed as transv erse by daphne al by AP. The right lobe measur es 1.5 x 4.4 x 1.9 cm yieldi ng a volume of 6.6 cc. Overal l, the lobe is homoge neous in echote xture except for one small cystic nodule in the mid - lower lobe (media l). This nodule measur es less than 0.4 cm in any single dimens ion and has no high-r isk charac terist ics. The isthmu s measur es 0.2 cm in width. There are no nodule s in the isthmu s. The left lobe measur es 1.7 x 5.7 x 2.1 cm yieldi ng a volume of 10.7 cc. There are 3 main nodule s in the left lobe. Nodule #1: This nodule is in the left mid lobe and measur es 1.3 x 1.6 x 1.2 cm. The margin s are fairly indist inct. It is both solid and cystic althou gh mostly solid. It is mildly hypoec hoic and fairly hetero geneou s in echote xture with some slight soot blower ior enhanc ement. There are no microc alcifi cation s seen. There is a modera te amount of vascul ar flow. Nodule #2: This nodule s in the left mid lobe and measur es 1.1 x 1.1 x 0.9 cm. The margin s are fairly indist inct. It is solid and somewh at hypoec hoic but mostly hetero geneou s in echote xture. There are no microc alcifi cation s seen and only a small amount of vascul ar flow. Nodule #3: This nodule is normal left lower lobe and is anteri or. It measur es 1.1 x 1.5 x 1.1 cm. The margin s are indist inct. It is solid and mostly hetero geneou s but slight ly hypoec hoic. There are at least 2 areas of coarse calcif icatio ns that produc e shadow ing. There is a modera te amount of flow to this nodule . Impres tejinder: Multin odular goiter with signif icant nodule s in the left lobe. Compar ed to the previo us study from 2019, the 2 nodule s that were previo usly biopsi ed (#1 and #3) are, if anythi ng, smalle r than previo usly. The middle lobe nodule is fairly small and is unchan ged. Overal l, this appear s to be a stable multin odular goiter . Follow -up imagin g may be indica tila based on the nodule or nodule s that have not yet been biopsi ed. Electr onical ly signed Readin g Physic mena: Bishop shea MD [facility] (Imaging) [address] , [place], [address], 02/11/2022 15:03:16 11/12/19 22 10/30/2021 US, carot id arter y No observ ation record ed. [facility] [address], [place], [address], 02/11/2022 15:03:14 03/02/20 22 02/11/2022 US, thyro id Examin ation: Thyroi d ultras ound Indica tion: Follow -up of multin odular goiter . Histor y of benign biopsy of left lobe nodule s (mid and lower) in 2012. Thyroi d ultras ound study was perfor med and multip le static and color flow images were obtain ed. Dimens ions are provid ed as transv erse by daphne al by AP. The right lobe measur es 1.6 x 4.4 x 1.7 cm yieldi ng a volume of 6.3 cc. There is one small nodule in the right upper lobe. It measur es less than 0.5 cm in a single dimens ion. He has no high risk charac terist ics. The isthmu s measur es 0.2 cm in height . There are no nodule s in the isthmu s. The left lobe measur es 1.7 x 5.4 x 2.2 cm yieldi ng a volume of 10.6 cc. There are 3 nodule s in the left lobe. Nodule #1: This nodule is in the mid pole and measur es 1.4 x 1.8 x 1.6 cm. The margin s are somewh at indist inct. It is both solid and cystic . The solid portio n is hetero geneou s in echote xture. There are some hypere choic foci noted. There is a small amount of vascul ar flow. Nodule #2: This nodule is locate d in the mid-lo wer portio n of the lobe. It measur es 1.1 x 1.2 x 1.0 cm. The margin s are somewh at indist inct. It is solid and hetero geneou s but slight ly hypoec hoic in echote xture. There are some isolat ed mildly hypere choic foci noted. There is a small amount of periph eral vascul ar flow. Nodule #3: This nodule is in the lower pole and measur es 1.0 x 1.5 x 1.2 cm. The margin s are somewh at indist inct. It is solid and hetero geneou s in echote xture. There is a coarse calcif icatio n that produc es shadow ing. There is a small- modera te amount of periph eral vascul ar flow. Impres tejinder: Multip le nodule s in the left lobe of the thyroi d. One small nodule in the right lobe which is differ ent than that noted on the previo us study from Octobe r 2019. The left lobe nodule s are essent ially unchan ged compar ed to that prior study from Octobe r 2020. This appear s to be a stable multin odular goiter . The larges t nodule s have been biopsi ed and shown to be benign . Period ic monito ring may be approp riate based on clinic millicent vazquez. Lula emery Physic mena: Bishop shea [facility] (Imaging) [address], [place], [id number], 03/06/2022 12:24:58 06/28/20 22 06/24/2022 bone densi ty Dual-E nergy X-ray Absorp tiomet ry (DXA) scan perfor med on 2021. This scan was perfor med using the [employer] Primo densit ometer at [facility] , [place] [id number] . Impres tejinder: Based on BMD, diagno sis is consis tent with osteop orosis . Indica tion(s ): Caucas mena, postme nopaus al Clinic al Histor y: tobacc o user Techni seun Qualit y: The techni seun qualit y of the study was good and no region s [facility] were remove d. Result s: Lumbar Spine The BMD measur ed in the L1-L4 region is 0.860 g/cm2. T-scor e = -2.7 Femora l Neck The BMD measur ed at the left femora l neck is 0.603 g/cm2. T-scor e = -3.1 Total Hip The BMD measur ed at the total right proxim al femur is 0.655 g/cm2. T-scor e = -2.8 Interv al Change : This examin ation is compar ed to the techni andreas andrade r prior study from 11-15-19 11. In the interi m, there has been a signif icant decrea se of 0.104 g/cm2, or 10.8%, at the lumbar spine and a signif icant decrea se of 0.120 g/cm2, or 15.4%, at the total hip. At this facili ty, the least signif icant change in BMD with 95% confid ence is 0.0.04 3 g/cm2 at the L1-L4 spine, 0.048 g/cm2 at the left femora l neck, 0.023 g/cm2 at the right femora l neck and 0.009 g/cm2 at the total hip. Fractu re Risk: The estima tila 10-yea r risk for a major osteop orotic fractu re is 25.0% and for a hip fractu re 13.4%. This fractu re risk estima te was calcul ated using FRAX versio n 4.0 and tobacc o use as additi onal clinic al risk factor for fractu re. Second arabella causes of bone loss should be evalua tila if clinic ally indica tila since the etiolo gy of low BMD cannot be determ ined by BMD measur ement alone. Treatm ent Recomm endati ons: ?Opti zora vitami n D, calciu m, and weight -beari ng and muscle -stren gtheni ng exerci se. This patien t has osteop orosis . Treatm ent option s should be consid ered. Follow -up DXA: Consid er repeat ing this study in 1-2 years or as clinic ally indica tila. Read by: Saleem jalloh MD, FACP, CCD Readin rupert Physic mena: Saleem jalloh [facility] (Imaging) [address] , [place], [id number], 07/04/2022 10:10:48 06/02/20 23 06/02/2023 US, thyro id CLINIC AL HISTOR Y: Multin odular goiter TECHNI QUE: 2D Sonogr aphy of the thyroi d gland perfor med. Nodule s are enumer ated from superi or to inferi or and measur ed transv erse (TRV) x mina soot blower ior (AP) x cranio caudal (CC). COMPAR NALDO: 02/12/20 22, 03/16/20 20. FINDIN GS: The backgr ound thyroi d parenc hyma is hetero geneou s.Ther e are superi mposed nodule s. Right lobe 1.4 x 1.5 x 4.4 cm Nodule 1: 0.4 x 0.3 x 0.5 cm, superi or, isoech oic, solid, wider than tall, no suspic ious microc alcifi cation s, smooth Left lobe 1.5 x 2.2 x 5.3 cm Nodule 1: 1.6 x 1.5 x 1.9 cm, 1.4 x 1.6 x 1.8 cm ( 022), mid, isoech oic, solid, wider than tall, no suspic ious microc alcifi cation s, smooth Nodule 2: 1.2 x 0.9 x 1.4 cm, 1.1 x 1.0 x 1.2 cm ( 022), inferi or, isoech oic, solid, wider than tall, no suspic ious microc alcifi cation s, smooth Nodule 3: 1.1 x 1.2 x 1.4 cm, 1.0 x 1.2 x 1.5 cm ( 022) inferi or, isoech oic, solid, taller than wide, internal grinder al rim calcif icatio n, smooth . This nodule may repres ent one or more adjace nt nodule s. Isthmu s 2 mm IMPRES TEJINDER: Bilate ral thyroi d nodule s. No worris ome change from the prior study. The left mid and lower thyroi d nodule s were biopsi ed in 2012 with a result of benign follic ular cells and no malign ant cells. Lula emery Physic mena: Gustavo Horton ms [facility] (Imaging) [address], [place], [address], 10/18/2023 09:35:48 Result Notes None recorded. Problems Name Problem SNOMED Code Status Onset Date Resolution Date Notes Provider Name and Address Organization Details Recorded Time Disorder of skeletal system 88453927 Completed 06/01/2013 Not Available [facility] 3 02:01:39 Non-toxic uninodular goiter 114259740 Active Not Available [facility] 3 03:15:18 Multinodul ar goiter 604349606 [facility] 3 14:19:09 Non-toxic multinodul ar goiter 96785770 Active Bishop Chavira MD [address] [place] [address], [phone] , [facility] 5 16:57:57 Chronic obstructiv e pulmonary disease 85453441 Active Bishop Chavira MD [address] [place] [address], [phone] , [facility] 3 17:15:13 Smoker 81470184 Active Bishop Chavira MD [address] [place] [address], [phone] , [facility] 5 16:57:57 On examinatio n - tenderness Active Bishop Chavira MD [address] [place] [address], [phone] , [facility] 5 16:57:57 Problem Notes None recorded. Procedures Surgical History Date Name Laterality Status Provider Name and Address Organization Details Recorded Time 3 Smoking cessation counseling completed Kamilla Garcia [facility] 06/01/2023 09:25:33 3 Smoking cessation counseling cancelled Kamilla Garcia [facility] 02/24/2023 09:57:05 2 Smoking cessation counseling completed Kamilla Garcia [facility] 02/10/2022 09:41:22 0 Smoking cessation counseling completed Bishop Chavira MD [address] [place] [address], [phone], [facility] 03/21/2020 14:32:18 9 Smoking cessation counseling completed Bishop Chavira MD [address] [place] [address], [phone], [facility] 04/22/2019 11:33:34 8 Smoking cessation counseling completed [facility] 04/23/2018 15:57:06 8 Carbon Monoxide Testing completed Gretel [facility] 04/23/2018 15:57:06 7 Smoking cessation counseling completed [facility] 07/16/2016 10:59:26 7 Carbon Monoxide Testing completed Twyla Truong [facility] 07/16/2016 11:02:34 4 Other (specify) completed Twyla Truong [facility] 06/06/2015 16:15:54 Imaging Results Imaging Date Name Status LastModified by Organiz ation Details LastModified Time 04/23/2018 US, thyroid completed jenna [facility] (Imaging) [address], [place], [address], 04/22/2019 11:33:21 04/22/2019 [facility] [address] [place], [address], 07/24/2019 17:04:54 03/16/2020 US, thyroid completed [facility]stuartchip[facility] (Im[facility]) [address] [place], [address], 02/11/2022 15:03:16 10/30/2021 US, carotid artery completed sstuartchipkin [facility] [address] [place], [address], 02/11/2022 15:03:14 02/11/2022 US, thyroid completed [facility] ([facility]) [address] [place], [address], 03/06/2022 12:24:58 06/24/2022 bone density completed [address] [facility] ([facility]) [address] [place], [address], 07/04/2022 10:10:48 06/02/2023 US, thyroid completed [facility]stuartchipkin [facility] (Imaging) [address] [place], [address], 10/18/2023 09:35:48 Procedure Notes None recorded. Medical Equipment None Reported. Allergies No known drug allergies Medications Name Sig Start Date Stop Date Status Note LastModified by Organization Details LastModified Time atorvastat in 10 mg tablet Take 1 tablet every day by oral route. 03/21 completed Not Available Not Available Not Available aspirin 325 mg tablet Take 1 tablet every day by oral route. active Not Available Not Available No t Available Ativan 1 mg tablet Take on tab the night before, one tab one hour before and one immediate ly preceedin g procedure if needed. 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 active Not Available Not Available No t Available pravastati n 20 mg tablet Take 1 tablet every day by oral route for 30 days. 2022 active Not Available Not Available Not Avai lable clobetasol 0.05 % topical ointment APPLY A THIN LAYER TO THE AFFECTED AREA(S) BY TOPICAL ROUTE 2 TIMES PER DAY active Not Available Not Available No t Available fluoxetine 20 mg capsule Take 1 capsule every day by oral route. active Not Available Not Available No t Available Vitamin D3 25 mcg (1,000 unit) capsule 1 tablet daily active Not Available Not Available No t Available Restasis 0.05 % eye drops in a dropperett e INSTILL 1 DROP INTO AFFECTED EYE(S) BY OPHTHALMI C ROUTE EVERY 12 HOURS active Not Available Not Available No t Available rosuvastat in 10 mg tablet Take 1 tablet every other day by oral route for 30 days. 06/02 completed Not Available Not Available Not Available metoprolol tartrate 1 tablet daily 25 mg active Not Available Not Available No t Available hydrochlor othiazide active 12.5 mg daily Not Available Not Available Not Available multivitam in 03/21 completed Not Available Not Available Not Available Glenis Low Dose Aspirin active 81 MG 4 Not Available Not Available Not Available ProAir HFA 90 mcg/actuat ion aerosol inhaler Inhale 2 puffs every 4 hours by inhalatio n route. 02/11 completed Not Available Not Available Not Available Cepacol Sore Throat (milind-men) prn active Not Available Not Available N ot Available fluticason e 113 mcg-salmet poornima 14 mcg/actuat ion breath activated powdr Inhale 1 puff twice a day by inhalatio n route. active Not Available Not Available No t Available Vitals Date Recorded Body height Provider Name an d Address Organization Details Last Updated DateTime 04/23/2018 152.4 cm [facility] 04/23/2018 15:47:08 Date Recorded Body mass index (BMI) Body weight Provider Name and Address Organization Details Last Updated DateTime 04/23/2018 26.4 kg/m2 81156.41 g [facility] 04/23/2018 15:47:20 Date Recorded Heart rate Provider Name an d Address Organization Details Last Updated DateTime 04/23/2018 76 /min [facility] 04/23/2018 15:56:54 Date Recorded Body height Provider Name an d Address Organization Details Last Updated DateTime 04/22/2019 151.13 cm Nathalia Phillips [facility] 04/22/2019 11:08:14 Date Recorded Body mass index (BMI) Body weight Provider Name and Address Organization Details Last Updated DateTime 04/22/2019 27 kg/m2 61213.28 g Nathalia Phillips [facility] 04/22/2019 11:08:07 Date Recorded Heart rate Provider Name an d Address Organization Details Last Updated DateTime 04/22/2019 72 /min Nathalia Phillips [facility] 04/22/2019 11:14:17 Date Recorded Body weight Provider Name an d Address Organization Details Last Updated DateTime 02/11/2022 77226.67 g Shyla Mccormickain [facility] 02/11/2022 14:45:15 Date Recorded Body mass index (BMI) Body height Provider Name and Address Organization Details Last Updated DateTime 02/11/2022 24.9 kg/m2 152.4 cm Shylaramona Mccormickbao [facility] 02/11/2022 14:45:28 Date Recorded Heart rate Provider Name an d Address Organization Details Last Updated DateTime 02/11/2022 72 /min Shyla Rodriguez [facility] 02/11/2022 14:55:19 Date Recorded Body weight Provider Name an d Address Organization Details Last Updated DateTime 06/02/2023 43550.7 g Kamilla Garcia [facility] 06/02/2023 13:25:15 Date Recorded Body mass index (BMI) Body height Provider Name and Address Organization Details Last Updated DateTime 06/02/2023 25.2 kg/m2 152.4 cm Kamilla Garcia [facility] 06/02/2023 13:25:17 Date Recorded Heart rate Provider Name an d Address Organization Details Last Updated DateTime 06/02/2023 83 /min Kamilla Garcia [facility] 06/02/2023 13:35:25 Date Recorded Systolic blood pressure Diastolic blood pressure Provider Name and Address Organization Details Last Updated DateTime 04/23/2018 122 mm[Hg] 68 mm[Hg] Gretel [facility] 04/23/2018 15:55:38 Date Recorded Systolic blood pressure Diastolic blood pressure Provider Name and Address Organization Details Last Updated DateTime 04/22/2019 120 mm[Hg] 64 mm[Hg] Nathalia [facility] 04/22/2019 11:13:28 Date Recorded Systolic blood pressure Diastolic blood pressure Provider Name and Address Organization Details Last Updated DateTime 02/11/2022 106 mm[Hg] 60 mm[Hg] Shyla Michael [facility] 02/11/2022 14:54:14 Date Recorded Systolic blood pressure Diastolic blood pressure Provider Name and Address Organization Details Last Updated DateTime 06/02/2023 111 mm[Hg] 59 mm[Hg] Kamilla Radha [facility] 06/02/2023 13:35:14 Social History Question Answer Notes LastModified by Organizat ion Details LastModified Time Tobacco Smoking Status Current Every Day Smoker 3/4 to 1 pack daily Kamilla HUI Garcia [facility] 06/02/2023 13:32:57 What Is Your Level Of Alcohol Consumption? None Information not available 06/02/2023 Which Illicit Or Recreational Drugs Have You Used? None 07/16/16 [email or web address] Information not available 07/16/2016 How Many Days In The Past Year Have You Had A Heavy Drinking Consumption (4+ Female, 5+ Male)? 0 Information no t available 02/02/2013 Live Alone Or With Others? With Others [email or web address] Information not available 02/02/2013 Marital Status [email or web address] Informatio n not available 02/02/2013 What Was The Date Of Your Most Recent Tobacco Screening? 04/23/2018 Information not available 02/02/2019 How Many Children Do You Have? 2 Information not available 02/02/2013 Do You Use Any Illicit Or Recreational Drugs? No [email or web address] Information not available 02/11/2022 Sex: Unknown Functional Status None recorded. Mental Status None recorded. Family History Relationship Description Onset Age of this Age Resolved Age Notes LastModified by Organization Details LastModified Time Mother Diabetes mellitus was on insuli n. [email or web address] Not available 06/06/2015 16:42:01 Notes:Mom- had goiter remove d. age 70's ([place] - kidney) Dad- from stroke. hx of MS. One brother had [place]- not sure what kind one sister is ok Two brothers- one with DM. Daughter and son OK- 6 grandkids healthy. Brothers 05/27- 3 brothers (4th from [place]); one has DM and COPD. One sister is OK. Daughter has fibromylagia, glaucoma, cataracts. 6 Grandkids are OK (asthma). 04/30- sister was one who from pancreatic [place]. brothers are same. Daughter OK. 6 grandkids doing OK. 04/01: 2 brothers from [facility] coming to visit. Rest OK. 03/03: Brothers OK. Daughter and son and 6 grands doing OK. Medical History Condition Response COPD Y Gynecological HistoryNo gynecological history recorded. Obstetrics History GPAL:G 0 P 0 0 0 0 Immunizations Vaccine Type Date Status Note Provider Nam e and Address Organization Details Recorded Time Influenza, high-dose, trivalent, PF 06/06/2015 completed Not Available [facility] 2019 02:34:15 COVID-19, mRNA, LNP-S, PF, 100 mcg/0.5mL dose or 50 mcg/0.25mL dose 2020 completed Shyla Rodriguez LPN [facility] 02/11/2022 14:51:44 Past Encounters Encounter ID Performer Location Encounter Start Date Encounter Closed Date Diagnosis/Indication Diagnosis SNOMED-CT Code Diagnosis ICD10 Code Diagnosis Note [id number] Radiology , [address] [address] 11/14/2010 10:14:19 11/15/2010 10:56:13 [id number] Radiology , [address] [address] 11/14/2010 10:16:26 11/15/2010 10:56:38 [id number] Endocrino logy, [address] [address] 02/02/2013 13:00:02 02/02/2013 14:19:47 [id number] Sarah Cage Endocrino logy, [address] [address] 03/02/2013 12:48:06 03/02/2013 17:21:52 [id number] Endocrino logy, [address] [address] 03/11/2013 13:55:12 03/11/2013 15:06:41 Non-toxic multinodular goiter [id number] benign biopsy. left mid and left lower: benign follicular cells and colloid. Suggest f/u visit and u/s in one year. Chronic ob structive pulmonary disease 99216004 Pt asking questions about what it means. Reviewed basic concepts of COPD and likelihood for progressiv e deteriorat ion with SOB. Reviewed impact of stopping smoking. Discussed idea of finding something that will motivate her to want to stop (or at least decrease) smoking. Also encouraged her to discuss with PCP and to look into community smoking cessation programs ([facility], etc). Smoker 25055417 see oli e. smokes 1 ppd. [id number] Endocrino logy, [address] [address] 03/08/2014 14:26:45 03/08/2014 15:54:23 Non-toxic multinodular goiter 03135673 Benign biopsy in 2012. left mid and left lower: benign follicular cells and colloid. F/U ultrasound suggested. Smoker 01329078 Continue s to smoke 1 ppd. Having lung biopsy and also told of pre-cancer ous cells by DDS. Told of COPD last year. Emphasized importance of decreasing or quitting. On examina tion - tenderness [id number] Might be worth checking BMD if done more than 2 years ago given hx of risk factors including smoking and menopause. If she has had a decrease in height, could also check plain film to see if she has a compressio n fx. A compressio n fx, even in the setting of osteopenia would be compelling reason to consider tx for bone health (check vitamin D to start) [id number] Bishop Chavira MD Endocrino logy, [address] [address] 06/06/2015 15:47:05 06/06/2015 16:59:54 Active or passive immunization 715442894 Z23 Non-toxic multinodular goiter 00409351 E04.2 Benign biopsy in 2012. left mid and left lower: benign follicular cells and colloid. Previous U/S 2014: LEFT: 1.8 x 2.6 x 2.2 cm. Also 1.6 x 1.4 x 1.3 cm U/S today- prelim looks like no change F/U ultrasound in 1-2 years. Smoker 10218094 F17.210 With hx of COPD. Continues to smoke 1/2-1 ppd. Bx of lung nodule showed COPD and bulla with interstiti al fibrosis Also told of pre-cancer ous cells by DDS. Emphasized importance of decreasing or quitting. Knows reasons to quit but too stubborn and stupid . On examina tion - tenderness 483498863 R52 Suggest checking BMD given hx of risk factors including smoking and menopause. If she has had a decrease in height, could also check plain film to see if she has a compressio n fx. A compressio n fx, even in the setting of osteopenia would be compelling reason to consider tx for bone health (check vitamin D to start) [id number] Bishop Chavira MD Endocrino logy, [address] [address] 07/16/2016 10:12:36 07/16/2016 11:48:58 Cigarette smoker 02526923 F17.210 CO leve around 20 which is consistent with 1 ppd.Consid er trial of buproprion . Tobacco user 831224723 Z 72.0 Didn't get benefit from patch- took off cause wanted to smoke.Migh t consider buproprion . Doesn't want Chantix.Kn ows she shouldn't smoke . Non-toxic multinodular goiter 18043264 E04.2 Preliminar y from 2017 suggests no change.Fol low yearly for another year, then decide if able to go to every 2 years. Previous U/S2015: Left= 1.7x2.4x2. 1 and 1.5x1.4x1. [address]: LEFT: 1.8 x 2.6 x 2.2 cm. Also 1.6 x 1.4 x 1.3 cm Smoker 22541581 F17.210 With hx of COPD. Continues to smoke 1 ppd. Bx of lung nodule showed COPD and bulla with interstiti al fibrosis Also told of pre-cancer ous cells by DDS. Emphasized importance of decreasing or quitting. she might be interested in buproprion . On examina tion - tenderness 380903028 R52 She has order for BMD but hasn't gone.Given hx of risk factors including smoking and menopause, would be worth knowing but not if she is unwilling to take any meds. If she has had a decrease in height, could also check plain film to see if she has a compressio n fx. A compressio n fx, even in the setting of osteopenia would be compelling reason to consider tx for bone health (check vitamin D to start) [id number] Bishop Chavira MD Endocrino logy, [address] [address] 04/23/2018 14:35:22 04/23/2018 17:04:45 Cigarette smoker 59345419 F17.210 CO level at 39; pt. reported having cigarette before appt. Pt. reports smoking 1 ppd. Pt. does not feel ready to quit. Has tried patch and quitting cold turkey in the past with only limited periods of success. Discussed with pt. risks of continuing to smoking, including its contributi on to her occasional SOB and cough. Discussed the many options and resources available to pt. to assist her with quitting, including patch, gum, and lozenges. Pt. does not wish to try any of these options at this time. Pt. strongly encouraged to consider quitting and the impact on her health and well-being should she choose to continue smoking. Tobacco user 986559690 Z 72.0 Pt. smokes 1 ppd. Pt. acknowledg es she should not smoke, but does feel it is important to her right now to quit. Pt. strongly encouraged to quit smoking and educated on the resources available to help her with this effort. Non-toxic multinodular goiter 02937178 E04.2 US 04/23/18: Left: 1.67 x 2.44 x 2.11 cm and 1.40 x 1.42 x 1.26 cm Previous U/S 2017: Left: 1.67 x 2.4 x 2.09 cm and 1.38 x 1.4 x 1.24 cm 2015: Left: 1.7x 2.4 x 2.1 cm and 1.5 x 1.4 x 1.3 cm 2014: Left: 1.8 x 2.6 x 2.2 cm. Also 1.6 x 1.4 x 1.3 cm U/S suggests no change in size. Nodules palpated on exam consistent with U/S. Will continue to monitor. Screening for osteoporosis 833748640 Z13.820 Pt. had tenderness to back on exam in 2017; none on today's exam. No change in height (5'0). Pt. reports she has an order for BMD in spring 2018. Pt. is at risk for bone loss given risk factors of smoking and menopause. Results could help guide prevention interventi ons, although pt. may not be willing to take any meds. Should continue to encourage pt. to stop smoking. Diet and exercise lifestyle modificati ons also recommende d to pt. would could be helpful in preventing bone loss. Prediabetes 103912457 R7 3.03 03/09/18: HgbA1c - 5.9Pt. made aware that this value places her in prediabete s range. Pt. notes family history of DM2. Pt. strongly encouraged to make diet and lifestyle changes (including to start exercising ) to lower blood glucose and prevent onset of DM2. Consider checking HgbA1c before next follow-up appointmen t. [id number] Bishop Chavira MD Endocrino logy, [address] [address] 04/22/2019 10:45:14 04/22/2019 12:00:45 Non-toxic multinodular goiter 24166608 E04.2 US 04/2019:Pr elim:Left lower: 1.8x2.4x1. 4;Left#2 (middle) = 1.5x1.5x1. 1;*New additional nodule on prelim report of 2019 u/s. 0.8x1.1x1. 0. Previous U/S 2018: Left: 1.67 x 2.44 x 2.11 cm and 1.40 x 1.42 x 1.26 cm 2017: Left: 1.67 x 2.4 x 2.09 cm and 1.38 x 1.4 x 1.24 cm 2015: Left: 1.7x 2.4 x 2.1 cm and 1.5 x 1.4 x 1.3 cm 2014: Left: 1.8 x 2.6 x 2.2 cm. Also 1.6 x 1.4 x 1.3 cm U/S suggests no change in size but possible new nodule on left. Given new nodule, suggest f/u in one year. Smoker [id number] F17.210 With hx of COPD. Continues to smoke 1 ppd. Bx of lung nodule showed COPD and bulla with interstiti al fibrosis Also told of pre-cancer ous cells by DDS. Emphasized importance of decreasing or quitting. She reports no interest in quitting. Has no will power . Discussed role of patch/gum/ meds to help.Asked what it would take to stop smoking, she says she doesn't know. Wouldn't stop if had CA. Cigarette smoker [id number] F17.210 CO level done in 2018 was 39; pt. reported having cigarette before appt. Pt. reports smoking 1 ppd. Pt. does not feel ready to quit. Has tried patch and quitting cold turkey in the past with only limited periods of success. Discussed with pt. risks of continuing to smoking, including its contributi on to her occasional SOB and cough. Discussed the many options and resources available to pt. to assist her with quitting, including patch, gum, and lozenges. Pt. does not wish to try any of these options at this time. Pt. strongly encouraged to consider quitting and the impact on her health and well-being should she choose to continue smoking. Tobacco user [id number] Z 72.0 Pt. smokes 1 ppd. Pt. acknowledg es she should not smoke, but does feel it is important to her right now to quit. Pt. strongly encouraged to quit smoking and educated on the resources available to help her with this effort. Screening for osteoporosis [id number] Z13.820 Pt. had tenderness to back on exam- lower back (S5/L1 region). No change in height (5'0). Pt. says had osteopenia and no change. Nonetheles s, she is at high risk for bone loss given risk factors of smoking and menopause. Prediabetes 149836274 R7 3.03 03/09/18: HgbA1c - 5.9Pt. made aware that this value places her in prediabete s range. Pt. notes family history of DM2. Pt. strongly encouraged to make diet and lifestyle changes (including to start exercising ) to lower blood glucose and prevent onset of DM2. Recommend checking HgbA1c q 6 months.iFlemon jay appreciate getting cc of results. [id number] Bishop Chavira MD Endocrino logy, [address] [phone] 03/21/2020 13:55:37 03/22/2020 07:00:41 Smoker [id number] F17.210 With hx of COPD. Continues to smoke - changes estimates between 1/2 and 1 ppd. Bx of lung nodule showed COPD and bulla with interstiti al fibrosis Also told of pre-cancer ous cells by DDS. She reports no interest in quitting. Has no will power . Discussed role of patch/gum/ meds to help.Says she knows smoking will kill her.In past had said she wouldn't stop if had CA. Non-toxic multinodular goiter [id number] E04.2 U/S Prelim (2019) -> 2019 -> 2018 -> 2017 -> 2014 Left#1 (lower)= 1.1x1.5x1. 1 (2019 prelim); was 1.8x2.4x1. 4; was 1.67 x 2.44 x 2.11 cm; was 1.67 x 2.4 x 2.09 cm; was 1.7 x 2.4 x 2.1 cm. Left #2= (middle) 1.1x1.1x0. 9 (2019 prelim); was 0.8x1.1x1. 0 (first seen 2018). Left#3 (middle) = 1.3x1.6x1. 2 (2019- prelim); was 1.5x1.5x1. 1; was 1.40 x 1.42 x 1.26 cm; was 1.38 x 1.4 x 1.24 cm; 1.5 x 1.4 x 1.3 cm. Hx of benign biopsy in 2012 (Left mid and left lower: benign follicular cells and colloid). U/S suggests no change in size but possible new nodule on right.Cont inues to have new nodules form. Suggest F/U in one year with u/s at same time. Prediabetes [id number] R7 3.03 03/09/18: HgbA1c - 5.9Pt. made aware that this value places her in prediabete s range. Pt. notes family history of DM2. Pt.has been strongly encouraged to make diet and lifestyle changes (including to stop smoking) to lower blood glucose and prevent onset of DM2. Will check HgbA1c and CMP q 6 months. Cigarette smoker [id number] F17.210 CO level done in 2018 was 39; pt. reported having cigarette before appt. Pt. reports smoking 1 ppd. Pt. does not feel ready to quit. Has tried patch and quitting cold turkey in the past with only limited periods of success. Discussed with pt. risks of continuing to smoking, including its contributi on to her occasional SOB and cough. Discussed the many options and resources available to pt. to assist her with quitting, including patch, gum, and lozenges. Pt. does not wish to try any of these options at this time. Pt. strongly encouraged to consider quitting and the impact on her health and well-being should she choose to continue smoking. Tobacco user [id number] Z 72.0 Pt. smokes somewhere between 1/2- 1 ppd (says she doesn't keep track).Pt. acknowledg es she should not smokePt. strongly encouraged to quit smoking and educated on the resources available to help her with this effort. Screening for osteoporosis [id number] Z13.820 She reports osteopenia at last exam. In 2019, had tenderness to back on exam- lower back (S5/L1 region). No change in height (5'0). Pt. says had osteopenia and no change. Nonetheles s, she is at high risk for bone loss given risk factors of smoking and menopause. [id number] Bishop Chavira MD Endocrino logy, [address] [phone] 02/11/2022 14:38:09 02/13/2022 11:22:45 Non-toxic multinodular goiter [id number] E04.2 U/S Prelim (2021) -> 2019) -> 2019 -> 2018 -> 2017 -> 2014 Left#1 (lower): 1.4x1.8x1. 6 (PRELIM 03/03) was 1.1x1.5x1. 1 (2019 ); was 1.8x2.4x1. 4; was 1.67 x 2.44 x 2.11 cm; was 1.67 x 2.4 x 2.09 cm; was 1.7 x 2.4 x 2.1 cm. Left #2 (middle): 1.1x1.2x1. 0 (PRELIM 03/03); was 1.1x1.1x0. 9 (2019 ); was 0.8x1.1x1. 0 (first seen 2018). Left#3 (middle) : 1.0x1.5x1. 2 (PRELIM 03/03); was 1.3x1.6x1. 2 (2019); was 1.5x1.5x1. 1; was 1.40 x 1.42 x 1.26 cm; was 1.38 x 1.4 x 1.24 cm; 1.5 x 1.4 x 1.3 cm. Hx of benign biopsy in 2012 (Left mid and left lower: benign follicular cells and colloid). U/S suggests no significan t change in size. Suggest F/U in one year with u/s at same time. Mostly to folllow Left #2 (not biopsied but seems to be slowly increasing in size) Prediabetes [id number] R7 3.03 HgbA1c= 5.8 (11/01); was 5.9 (02/27)Pt. has been aware that this value places her in prediabete s range. Pt. notes family history of DM2. Pt.has been strongly encouraged to make diet and lifestyle changes (including to stop smoking) to lower blood glucose and prevent onset of DM2. Will check HgbA1c and CMP q 6 months. Smoker [id number] F17.210 With hx of COPD.Levon nues to smoke - changes estimates between 1/2 and 1 ppd.Bx of lung nodule showed COPD and bulla with interstiti al fibrosisAl so told of pre-cancer ous cells by DDS. She reports no interest in quitting. Has no will power . Discussed role of patch/gum/ meds to help.Says she knows smoking will kill her.In past had said she wouldn't stop if had CA. Cigarette smoker [id number] 7 F17.210 Pt. does not feel ready to quit. Has tried patch and quitting cold turkey in the past with only limited periods of success. Discussed with pt. risks of continuing to smoking, including its contributi on to her occasional SOB and cough. Discussed the many options and resources available to pt. to assist her with quitting, including patch, gum, and lozenges. Pt. does not wish to try any of these options at this time. Pt. strongly encouraged to consider quitting and the impact on her health and well-being should she choose to continue smoking. Tobacco user 197318278 Z 72.0 Pt. smokes somewhere between 1/2- 1 ppd (says she doesn't keep track).Pt. acknowledg es she should not smokePt. strongly encouraged to quit smoking and educated on the resources available to help her with this effort. Osteopenia with high fracture risk [id number] 20498 M85.80 2010 ([facility] [place]spine = -1.8 (2010)left neck= -2.3 (2010)righ t neck= -1.9 (2010)tota l left = -2.0 (2010)tota l right= -1.6; (2010) Discussed potential risks. After explaining that likely benefits are greater than risks (<1% for ONJ and atypical femoral fx), she is willing to consider meds.Updat e BMD. Hyperlipidemia 05213084 E78.5 369/215/52 /274;Revie wed likely high risk, especially in light of smoking status.Radhames win tried PCSK9i injections but couldn't tolerate. But she said the agents were covered.Tr y and get her on small dose of statin to allow for potential PA for PCSK9i. [id number] Bishop Chavira MD Endocrino logy, [address] [phone] 06/02/2023 12:58:06 06/02/2023 14:57:12 Non-toxic multinodular goiter 81362427 E04.2 06/04: Small increase in left mid pole and left lower.Hx of benign biopsy in 2012 (Left mid and left lower: benign follicular cells and colloid). U/S suggests mild increase in size of nodules #1 and #2 (#1 was biopsied and likely #3 was biopsed)Nicholson ggest F/U in one year with u/s at same time. Mostly to follow Left #2 (not biopsied but seems to be slowly increasing in size) Prediabetes 074137447 R7 3.03 HgbA1c= 6.0 (05/04); was 5.8 (11/01); was 5.9 (02/27)Pt. has been aware that this value places her in prediabete s range. Pt. notes family history of DM2. Pt.has been strongly encouraged to make diet and lifestyle changes (including to stop smoking) to lower blood glucose and prevent onset of DM2. Will check HgbA1c and CMP q 6 months. Hyperlipidemia 40748947 E78.5 05/04: 417/196/53 /325was: 369/215/52 /274;Revie wed likely high risk, especially in light of smoking status.Radhames win tried PCSK9i injections but couldn't tolerate. But she said the agents were covered.Tr y and get her on small dose of statin to allow for potential PA for PCSK9i. prava 20. Smoker 08122720 F17.210 With hx of COPD.Levon nues to smoke - changes estimates between 1/2 and 1 ppd.Mostly seems like close to 1 ppd.Ang[place] g since age 11. Bx of lung nodule showed COPD and bulla with interstiti al fibrosisAl so told of pre-cancer ous cells by DDS. She reports no interest in quitting. Has no will power . Discussed role of patch/gum/ meds to help.Says she knows smoking will kill her.In past had said she wouldn't stop if had CA. Cigarette smoker [id number] 7 F17.210 Pt. does not feel ready to quit. Has tried patch and quitting cold turkey in the past with only limited periods of success. Discussed with pt. risks of continuing to smoking, including its contributi on to her occasional SOB and cough. Discussed the many options and resources available to pt. to assist her with quitting, including patch, gum, and lozenges. Pt. does not wish to try any of these options at this time. Pt. strongly encouraged to consider quitting and the impact on her health and well-being should she choose to continue smoking. Tobacco user [id number] Z 72.0 Pt. smokes somewhere between 1/2- 1 ppd (says she doesn't keep track).Pt. acknowledg es she should not smokePt. strongly encouraged to quit smoking and educated on the resources available to help her with this effort. Osteoporosis 31608045 M8 1.0 BMD@VMGL1- 4 T= -2.7 (07/03; -10.8% since 2010); was -1.8 (2010)Left fem neck T= -3.1 (07/03); was -2.3Right prox fem T= -2.8 (07/03; -15.4% since 2010) Health Concerns Section Related Observation LastModified by Organization Detai ls LastModified Time None Recorded Concern Status LastModified by Organization Details LastModified Time None Recorded Advance Directives Directive None Recorded Payers Encounter Date Sequence Insurance Name Policy Number Policy Jacob Covered Member ID Jacob Member ID Guarantor Name 04/23/2018 1 [facility] - MEDICARE PREFERRED (MEDICARE REPLACEMENT HMO) PATRICK Brown Anel [id number] Anel 04/23/2018 2 MEDICARE B-MA: [facility] Mccormick M Anel [id number] Anel 04/22/2019 1 [facility] - MEDICARE PREFERRED (MEDICARE REPLACEMENT HMO) PATRICK Brown Anel [id number] 1 Anel 04/22/2019 2 MEDICARE B-MA: [facility] [employer] Roro Kevin Anel [id number] 7 Anel 03/21/2020 1 [facility] - MEDICARE PREFERRED (MEDICARE REPLACEMENT HMO) PATRICK Brown Anel [id number] 1 Anel 02/11/2022 1 [facility] - MEDICARE PREFERRED (MEDICARE REPLACEMENT HMO) PATRICK Brown Anel [id number] 1 Anel 06/02/2023 1 [facility] - MEDICARE PREFERRED (MEDICARE REPLACEMENT HMO) PATRICK Brown Anel [id number] 1 Anel Notes Date Note Type Note Provider Name and Address Organization Details Recorded Time 04/23/2018 text/html ThyroidReported bypatient.Previous Evaluation:Ultrasound (number of nodules, size, adenopathy): (see above.); Previous biopsies (date, cytology): (02/2013: left mid and left lower: benign follicular cells and colloid); TSH: 1.25 (03/09/18 (was 1.32 (2014)); free T4: 1.2 (03/09/18) Treatment:, dose: mcg (no thyroid meds.); 1 cm left mid-upper lobe. Constitutional:no cold intolerance; no heat intolerance; no weight gain;weight loss(lost 11 lbs this past year; PCP not sure why.) Eyes:dry eyes(uses eye drops- some effect; r/t allergies/weather); opthamologist: (Dr. Stoddard at [facility] [place] no double vision; Wears glasses. No changes in blurry vision. Neck:no difficulty swallowing; no voice changes; no masses; Has cough productive of clear mucus; worse later in day/when she's tired. Cough drops help. No blood. Feels like she always has mucus in her throat. Heart:no rapid heart rate; no palpitations; no chest pain; no tightness or pressure; On metoprolol for irregular heart. Had episode over 10 years ago- thought it might be panic attack (after going to ER). GI:no constipation; no diarrhea Neurological:no tremor; no anxiety; no insomnia; Sometimes drinks too much coffee- about 2-3 cups per day (strong)Notes:U/S 2018: Left#1= 1.67 x 2.44 x 2.11 cm and left#2 =1.40 x 1.42 x 1.26 [id number]: Left#1 = 1.67 x 2.4 x 2.09 cm and left#2 = 1.38 x 1.4 x 1.24 cm U/S 2014: left#1= 1.7 x 2.4 x 2.1 cm. left#2= 1.5 x 1.4 x 1.3 cm.a/[facility] [place]sm[place] [id number] bypatient.ImportanceO n a scale of 1-10 with 1 being not important and 10 being very important the patient rates importance of stopping smoking as 0 ConfidenceOn a scale of 1-10 with 1 being not confident and 10 being very confident the patient rates confidence on stopping smoking as 1 Readiness to quit smokingOn a scale of 1-10 with 1 being not ready and 10 being very ready the patient rates readiness to stop smoking as 1 Physiological Dependence/Health RiskCurrently smoking 20 cigarettes per day; Patient has first cigarette within 30 minutes after awakening; Patient has tried to stop smoking 1 times. (cold turkey; was able to quit for half a day.) Medication AssessmentHas used Patch in the past Pt. presents for follow up of non-toxic multinodular goiter on left side. Pt. had a benign biopsy in 2012 (left mid and left lower: benign follicular cells and colloid). Pt. has occasional hot flashes after dinner. Pt. reports having some SOB after smoking a cigarette and a productive cough of clear mucus. Pt. denies fevers, chills, temperature intolerance, changes in voice/hoarseness, chest pain or pressure, palpitations, changes in skin or nails. Labs HgbA1c: 5.9 (03/09/18)FT4: 1.2 (03/09/18); TSH 1.25 (03/09/18; was 1.10 on 09/07/17) Diagnostics:Pt. had a CT scan done d/t a persistent cough and unintended weight loss on 03/16/18 at [facility]. It did show the left thyroid goiter - Enlargement of the left thyroid lobe with some zones of calcification again noted. The left thyroid lobe extends posteriorly and abuts the esophagus and mildly displaces the trachea to the right. The pattern is fairly chronic, however. No mediastinal mass of clear concern. Thyroid US 04/23/18:Left: 1.67 x 2.44 x 2.11 cm and 1.40 x 1.42 x 1.26 cm Previous U/S 2017: Left: 1.67 x 2.4 x 2.09 cm and 1.38 x 1.4 x 1.24 [id number]: Left: 1.7x 2.4 x 2.1 cm and 1.5 x 1.4 x 1.3 [id number]: Left: 1.8 x 2.6 x 2.2 cm. Also 1.6 x 1.4 x 1.3 cm ROS: No fever or chills.No severe h/a. Some SOB usually in the evening; feels it is r/t cigarettes; notices it more after going for a smoke. Not particularly exacerbated by activity.Occasional gas pains after she eats. No N/V or abdominal pain. No muscle aches, pains or cramping. Nocturia - 1-2 x a night. Some sneeze/cough incontinence. No polyuria. Some vertigo everyday; lasts very briefly and does not interfere with daily life. Feels she needs to drink more water. Bishop Chavira MD [address] [place] [address], [phone], [facility] 05/08/2018 18:59:18 04/22/2019 text/html ThyroidReported bypatient.Previous Evaluation:Ultrasound (number of nodules, size, adenopathy): (see above.); Previous biopsies (date, cytology): (02/2013: left mid and left lower: benign follicular cells and colloid); TSH: (1.25 (03/09/18); was 1.32 (2014)); free T4: (1.2 (03/09/18)) Treatment:, dose: mcg (no thyroid meds.) Constitutional:no cold intolerance; no heat intolerance; no weight loss; no weight gain Eyes:dry eyes(uses eye drops- some effect; r/t allergies/weather); opthamologist: (Dr. Stoddard at [facility] [place]); no double vision; Wears glasses. No changes in blurry vision. Neck:no difficulty swallowing; no voice changes; no masses Heart:no rapid heart rate; no palpitations; no chest pain; no tightness or pressure; On metoprolol for irregular heart. Had episode over 10 years ago- thought it might be panic attack (after going to ER). GI:no constipation; no diarrhea Neurological:no tremor; no anxiety; no insomnia; Sometimes if drinks too much coffee- about 2-3 cups per day (strong)Notes:Benign biopsy in 2012 (left mid and left lower: benign follicular cells and colloid). U/S Prelim (2018) -> 2018 -> 2017 -> 2015Left#1 (lower)= 1.8x2.4x1.4; was 1.67 x 2.44 x 2.11 cm; was 1.67 x 2.4 x 2.09 cm; was 1.7 x 2.4 x 2.1 cm.left#2 (middle) = 1.5x1.5x1.1; was 1.40 x 1.42 x 1.26 cm; was 1.38 x 1.4 x 1.24 cm; 1.5 x 1.4 x 1.3 cm. *New additional nodule on prelim report of 2019 u/s. 0.8x1.1x1.0.a[place] [place] [id number] bypatient.ImportanceO n a scale of 1-10 with 1 being not important and 10 being very important the patient rates importance of stopping smoking as 0 ConfidenceOn a scale of 1-10 with 1 being not confident and 10 being very confident the patient rates confidence on stopping smoking as 1 Readiness to quit smokingOn a scale of 1-10 with 1 being not ready and 10 being very ready the patient rates readiness to stop smoking as 1 Physiological Dependence/Health RiskCurrently smoking 20 cigarettes per day; Patient has first cigarette within 30 minutes after awakening; Patient has tried to stop smoking 1 times. (cold turkey; was able to quit for half a day.) Medication AssessmentHas used Patch in the past (but not sure used it that much.) Follow-up for non-toxic multinodular goiter on (largely left). Pt. has occasional hot flashes after dinner. Pt. reports having some SOB after smoking a cigarette and a productive cough of clear mucus. Pt. denies fevers, chills, temperature intolerance, changes in voice/hoarseness, chest pain or pressure, palpitations, changes in skin or nails. Labs HgbA1c: 5.9 (03/09/18)FT4: 1.2 (03/09/18); TSH 1.25 (03/09/18; was 1.10 on 09/07/17) Diagnostics:Pt. had a CT scan done d/t a persistent cough and unintended weight loss on 03/16/18 at [facility]. It did show the left thyroid goiter - Enlargement of the left thyroid lobe with some zones of calcification again noted. The left thyroid lobe extends posteriorly and abuts the esophagus and mildly displaces the trachea to the right. The pattern is fairly chronic, however. No mediastinal mass of clear concern. Thyroid US 04/23/18:Left: 1.67 x 2.44 x 2.11 cm and 1.40 x 1.42 x 1.26 cm Previous U/S 2017: Left: 1.67 x 2.4 x 2.09 cm and 1.38 x 1.4 x 1.24 [id number]: Left: 1.7x 2.4 x 2.1 cm and 1.5 x 1.4 x 1.3 [id number]: Left: 1.8 x 2.6 x 2.2 cm. Also 1.6 x 1.4 x 1.3 cm ROS: No fever or chills.No severe h/a. Less SOB with inhaler.No N/V or abdominal pain. Back on gastric reflux meds. No muscle aches, pains or cramping. Nocturia (1-2 x). No polyuria. No polydipsia. Some vertigo if puts arm up over head. Told of possible pinched vagus nerve. No dizziness with standing in AM.No bruises or rashes. Noticed bump on right middle finger (nodule) Bishop Chavira MD [address] [place] [address], [phone], [facility] 04/23/2019 13:16:40 03/21/2020 text/html ThyroidReported bypatient.Previous Evaluation:Ultrasound (number of nodules, size, adenopathy): (see above.); Previous biopsies (date, cytology): (02/2013: left mid and left lower: benign follicular cells and colloid); TSH: (1.25 (03/09/18); was was 1.10 on 09/07/17) ; was 1.32 (2014)); free T4: (1.2 (03/09/18)); Treatment:, dose: mcg (no thyroid meds.) Constitutional:no cold intolerance; no heat intolerance; no weight loss; no weight gain; Thinks weight around the same or less. Was 136 in office in 04/30. Eyes:dry eyes(uses eye drops- some effect; r/t allergies/weather); opthamologist: (Dr. Stoddard at [facility] [place]); no double vision; Some burning sx from dry eyes. Wears glasses. No changes in blurry vision. Neck:no difficulty swallowing; no voice changes; no masses Heart:no rapid heart rate; no palpitations; no chest pain; no tightness or pressure; On metoprolol for irregular heart. Had episode over 10 years ago- thought it might be panic attack (after going to ER). GI:no constipation; no diarrhea Neurological:no tremor; no anxiety; no insomnia; Sometimes if drinks too much coffee- about 2-3 cups per day (strong)Notes:No change in hair/nails.Some more hair in brush with aging.Chews nails. Benign biopsy in 2012 (left mid and left lower: benign follicular cells and colloid). U/S Prelim (2019) -> 2018 -> 2017 -> 2017 -> 2014Left#1 (lower)= 1.1x1.5x1.1 (2019 prelim); was 1.8x2.4x1.4; was 1.67 x 2.44 x 2.11 cm; was 1.67 x 2.4 x 2.09 cm; was 1.7 x 2.4 x 2.1 cm. Left #2= (middle) 1.1x1.1x0.9 (2019 prelim); was 0.8x1.1x1.0 (first seen 2018). Left#3 (middle) = 1.3x1.6x1.2 (2019- prelim); was 1.5x1.5x1.1; was 1.40 x 1.42 x 1.26 cm; was 1.38 x 1.4 x 1.24 cm; 1.5 x 1.4 x 1.3 cm. Previous U/S 2017: Left: 1.67 x 2.4 x 2.09 cm and 1.38 x 1.4 x 1.24 cm 2014: Left: 1.7x 2.4 x 2.1 cm and 1.5 x 1.4 x 1.3 cm 2013: Left: 1.8 x 2.6 x 2.2 cm. Also 1.6 x 1.4 x 1.3 cm a/vmg-smoking [id number] bypatient.ImportanceO n a scale of 1-10 with 1 being not important and 10 being very important the patient rates importance of stopping smoking as 10 ConfidenceOn a scale of 1-10 with 1 being not confident and 10 being very confident the patient rates confidence on stopping smoking as 1 Readiness to quit smokingOn a scale of 1-10 with 1 being not ready and 10 being very ready the patient rates readiness to stop smoking as 1 Physiological Dependence/Health RiskCurrently smoking 10 cigarettes per day; Patient has first cigarette within 30 minutes after awakening; Patient has tried to stop smoking 1 times. (cold turkey; was able to quit for half a day.) Medication AssessmentHas used Patch in the past (but not sure used it that much.); Doesn't want to quit- I'm addicted. 3 cartons last about 2 months (10 packs per carton). Encouraged marking how many packs take her how long. Lung nodes/nodules don't bother her. PCP: [facility]. Follow-up for non-toxic multinodular goiter on (largely left).Also pre-diabetes and osteopenia. Patient agreed to this visit via phone due to the COVID -19 pandemic. Patient understands this is a scheduled visit and the usual procedures with regard to billing and confidentiality apply. Patient was notified that the provider location is [facility] [place] Patient location: home During the visit the patient? s medical history and medical record were reviewed. The patient was notified to call our office for worsening or urgent symptoms. Diagnostics:MNG orginally found on CT scan (done d/t a persistent cough and unintended weight loss on 03/16/18) at [facility]. The left thyroid lobe extends posteriorly and abuts the esophagus and mildly displaces the trachea to the right. The pattern is fairly chronic, however. No mediastinal mass of clear concern. Labs HgbA1c: 5.9 (03/09/18) Pt reports had BMD and was told of osteopenia. ROS: No fever or chills. Fever couple of months ago.No severe h/a.No consistent cough. Some SOB- comes and goesReports checking with pulse Ox: gets values of 94-97% .No N/V or abdominal pain. Uses TUMS with coffee or tomatoes.No muscle aches, pains or cramping. Nocturia (1-2 x). No polyuria. No polydipsia.Some incontinence sx- weak bladder with trouble getting to BR quickly enough.No dizziness when first wakes and stands up Some vertigo if puts arm up over head. Told of possible pinched vagus nerve. No bruising, itching or rashes.Noticed red spots on skin- some scaling. then resolves. Usually on legssteroid cream helps. Bishop Chavira MD [address] [place] [address], [phone], [facility] 03/21/2020 14:51:29 02/11/2022 text/html ThyroidReported bypatient.Previous Evaluation:Ultrasound (number of nodules, size, adenopathy): (see above.); Previous biopsies (date, cytology): (02/2013: left mid and left lower: benign follicular cells and colloid); TSH: (1.25 (03/09/18); was was 1.10 on 09/07/17) ; was 1.32 (2014)); free T4: (1.2 (03/09/18)); Treatment:, dose: mcg (no thyroid meds.) Constitutional:no cold intolerance; no heat intolerance (hates the humidity.); no weight gain;weight loss(6# since 2018) Eyes:dry eyes(uses OTC and Rx eye drops- restasis.); opthamologist: ([facility] in [place]) Neck:no difficulty swallowing; no voice changes; no masses Heart:no rapid heart rate; no palpitations; no chest pain; no tightness or pressure; On metoprolol for irregular heart. Had episode over 10 years ago- thought it might be panic attack (after going to ER). GI:no constipation; no diarrhea; Takes Shaklee herb lax. Neurological:no tremor; no anxiety;insomnia(coup le of hours to fall asleep (7-8PM). Wakes around 5:30-6AM.); Biotin for dry mouth (uses spray) in middle of nightNotes:No change in hair. Nails are awful- picks at them with teeth. Benign biopsy in 2012 (Left mid and Left lower both- benign follicular cells and colloid). U/S 2021 (prelim -> 2019 -> 2019 -> 2018 -> 2017 -> 2014Left#1 (lower)*= 1.4x1.8x1.6 (PRELIM 03/03) was 1.1x1.5x1.1 (2019 ); was 1.8x2.4x1.4; was 1.67 x 2.44 x 2.11 cm; was 1.67 x 2.4 x 2.09 cm; was 1.7 x 2.4 x 2.1 cm. Left #2 (middle) = 1.1x1.2x1.0 (PRELIM 03/03); was 1.1x1.1x0.9 (2019 prelim); was 0.8x1.1x1.0 (first seen 2018). Left#3 (middle)* = 1.0x1.5x1.2 (PRELIM 03/03); was 1.3x1.6x1.2 (2019- prelim); was 1.5x1.5x1.1; was 1.40 x 1.42 x 1.26 cm; was 1.38 x 1.4 x 1.24 cm; 1.5 x 1.4 x 1.3 cm.*Likely biopsied in 2013 (biggest) Previous U/S2017: Left: 1.67 x 2.4 x 2.09 cm and 1.38 x 1.4 x 1.24 [id number]: Left: 1.7x 2.4 x 2.1 cm and 1.5 x 1.4 x 1.3 [id number]: Left: 1.8 x 2.6 x 2.2 cm. Also 1.6 x 1.4 x 1.3 cm a/vmg-smoking [id number] bypatient.ImportanceO n a scale of 1-10 with 1 being not important and 10 being very important the patient rates importance of stopping smoking as 1; was 10 in past (04/01). ConfidenceOn a scale of 1-10 with 1 being not confident and 10 being very confident the patient rates confidence on stopping smoking as 1; was 1 in past (04/01) Readiness to quit smokingOn a scale of 1-10 with 1 being not ready and 10 being very ready the patient rates readiness to stop smoking as 1; was 1 in past (04/01) Physiological Dependence/Health RiskCurrently smoking 10 cigarettes per day (1/2-1 ppd. 3 cartons in [place] (maybe QO month)); Patient has first cigarette within 30 minutes after awakening; Patient has tried to stop smoking 1 times. (cold turkey; only able to quit for half a day.); Doesn't smoke in house. Medication AssessmentHas used Patch in the past (but not sure used it that much.); Doesn't want to quit- I'm addicted . 3 cartons last about 2 months (10 packs per carton). Lung nodes/nodules don't bother her. I don't know what I'll do until something happens (e.g., CVA, COPD, CA, etc.) PCP: Ulises.Had pain on left side of jaw- told of infection.Was planning on having removed but pain stopped. Follow-up for non-toxic multinodular goiter on (mostly left).Also pre-diabetes and osteopenia.Also smoker. Diagnostics:MNG orginally found on CT scan (done d/t a persistent cough and unintended weight loss on 03/16/18) at [facility]. The left thyroid lobe extends posteriorly and abuts the esophagus and mildly displaces the trachea to the right. The pattern is fairly chronic, however. No mediastinal mass of clear concern. Review of labs ([facility])369/215/52/274 (01/01);TSH= 1.06 (11/01) PRE-DIABETES:a1c= 5.8 (11/01); was 5.9 (03/09/18)BG since 2019 all less than 100 Nocturia x 2-3.Taking more water to help with constipation (with Shalee).Polyuria- no change.Some polydipsia.No blurry vision.Mom had DM. Brother is on insulin.Pt. has HTN. OSTEOPENIA:Pt reports had BMD and was told of osteopenia.Said she opted not to f/u- told meds were not good for her.BMD @ [facility] (2010)spine= -1.8left neck= -2.3right neck= -1.9total left = -2.0total right= -1.6; ROS:No fever or chills. Fever couple of months ago.No severe h/a.No consistent cough. Some SOB- comes and goesReports checking with pulse Ox: gets values of 94-97% .No N/V or abdominal pain. Uses TUMS with coffee or tomatoes.No muscle aches, pains or cramping. Nocturia (1-2 x). No polyuria. No polydipsia.Some incontinence sx- weak bladder with trouble getting to BR quickly enough.No dizziness when first wakes and stands up Some vertigo if puts arm up over head. Told of possible pinched vagus nerve. No bruising, itching or rashes.Noticed red spots on skin- some scaling. then resolves. Usually on legssteroid cream helps. Bishop Chavira MD [address] [place] [address], [place], [phone], [facility] 02/11/2022 19:44:36 06/02/2023 text/html ThyroidReported bypatient.Previous Evaluation:Ultrasound (number of nodules, size, adenopathy): (see other section (2022).); Previous biopsies (date, cytology): (02/2013: left mid and left lower: benign follicular cells and colloid); TSH: (1.64 (06/04); was 1.57 (03/04); was 1.25 (03/09/18); was was 1.10 on 09/07/17); was 1.32 (2014)); free T4: (1.2 (03/09/18)) Treatment:, dose: mcg (no thyroid meds.) Constitutional:no cold intolerance; no heat intolerance (occ hot at night after snack.); no weight loss; no weight gain; WEIGHT= 128 (06/04); was 127 (03/03) Neck:no difficulty swallowing; no voice changes; no masses Heart:no rapid heart rate; no palpitations; no chest pain; no tightness or pressure; Some racing on occasion. On metoprolol - helps. GI:no constipation; no diarrhea Neurological:no tremor; no anxiety;insomnia(take s couple of hours to fall asleep (8PM). Wakes around 7-8AM.); Not overly nervous/jittery.Notes : Benign biopsy in 2013 (Left mid and Left lower both- benign follicular cells and colloid). U/S 2021 (prelim -> 2021-> 2019 -> 2019 -> 2018 -> 2017 -> 2014Left#1 (lower)*= 1.6x1.9x1.5 PRELIM 06/04); was 1.4x1.8x1.6 (03/03) was 1.1x1.5x1.1 (2019 ); was 1.8x2.4x1.4; was 1.67 x 2.44 x 2.11 cm; was 1.67 x 2.4 x 2.09 cm; was 1.7 x 2.4 x 2.1 cm. Left #2 (middle) = 1.2x1.4x.0.9 (PRELIM 06/04); was 1.1x1.2x1.0 (03/03); was 1.1x1.1x0.9 (2019); was 0.8x1.1x1.0 (first seen 2018). Left#3 (middle)* = 1.1x1.4x1.2 (PRELIM in 06/04); was 1.0x1.5x1.2 (03/03); was 1.3x1.6x1.2 (2019- ); was 1.5x1.5x1.1; was 1.40 x 1.42 x 1.26 cm; was 1.38 x 1.4 x 1.24 cm; 1.5 x 1.4 x 1.3 cm.*Likely biopsied in 2013 (biggest) Previous U/S2017: Left: 1.67 x 2.4 x 2.09 cm and 1.38 x 1.4 x 1.24 [id number]: Left: 1.7x 2.4 x 2.1 cm and 1.5 x 1.4 x 1.3 [id number]: Left: 1.8 x 2.6 x 2.2 cm. Also 1.6 x 1.4 x 1.3 cm a/vmg-smoking [id number] bypatient.ImportanceO n a scale of 1-10 with 1 being not important and 10 being very important the patient rates importance of stopping smoking as 1; ongoing- not important (06/04) was 10 in past (04/01). ConfidenceOn a scale of 1-10 with 1 being not confident and 10 being very confident the patient rates confidence on stopping smoking as 1; doesnt think she could quit (06/04). was 1 in past (04/01) Readiness to quit smokingOn a scale of 1-10 with 1 being not ready and 10 being very ready the patient rates readiness to stop smoking as 1; not ready (06/04) was 1 in past (04/01) Physiological Dependence/Health RiskCurrently smoking 20 cigarettes per day (3/4-1ppd (06/04); was 1/2-1 ppd. 3 cartons in [place] (maybe QO month)); Patient has first cigarette within 30 minutes after awakening; Patient has tried to stop smoking 1 times. (cold turkey; only able to quit for half a day.); Doesn't smoke in house. Medication AssessmentHas used Patch in the past (but not sure used it that much.); 06/04: Knows consequences- heart attack or stroke of other load of stuff Doesn't want to quit- I'm addicted . 3 cartons last about 2 months (10 packs per carton). Lung nodes/nodules don't bother her. I don't know what I'll do until something happens (e.g., CVA, COPD, CA, etc.) PCP: Ulises.CARDS: will see someone at [place]. Follow-Up: non-toxic multinodular goiterFollow-Up: smokerFollow-Up: multinodular goiterVMG Tobacco use epIFGLV on 03/03Last labs 05/04 A1C- 6 [facility] added to chart multiple labsLAst Thyroid U/S -having today 06/02/23LAbs cued for PRe DM and osteoPT had dental extraction done (left side) PAST MEDICAL Hx (updated):05/27- Lung bx for ground glass opacities and bulla- showed bronciolitis, with mild=moderate interstitial fibrosis and emphysema. ([place]). Told of pre-cancerous cells on soft palate.04/30- Using inhaler to help with oxygen (for COPD/interstitial fibrosis).HTN on HCTZ.06/04: No major changes. COVID in past. mild. 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 Doesn't smoke in house.2021- [place] in summer. Son has pool (1-2x/month).06/04: Not much activity- LBP. No specific incident. FAMILY Hx (updated):Mom- had goiter removed. age 70's (CA - kidney)Dad- from stroke. hx of MS.one sister is okTwo brothers- one with DM. had 4?- one CADaughter and son OK- 6 grandkids healthy.06/04: kids and grands all well. Follow-up for non-toxic multinodular goiter on (mostly left).Also pre-diabetes and osteopenia.Also smoker. Diagnostics:MNG orginally found on CT scan (done d/t a persistent cough and unintended weight loss on 03/16/18) at [facility]. The left thyroid lobe extends posteriorly and abuts the esophagus and mildly displaces the trachea to the right. The pattern is fairly chronic, however. No mediastinal mass of clear concern. Review of labs ([facility])369/215/52/274 (01/01);TSH= 1.06 (11/01) PRE-DIABETES:a1c= 6.0 (06/04); was 5.8 (11/01); was 5.9 (03/09/18)BG since 2019 all less than 100 Mom had DM. Brother is on insulin.Nocturia x 1-2.Some polydipsia. Probably not enough . coffee (2-3 cups) and juice (1-2 cups).Polyuria- no change.No blurry vision. Saw eye doctor last year. told of cataracts.Pt. has HTN. HYPERLIPIDEMIA:06/04: 417/196/53/325reports had muscle cramps. Not interested in other options.Told of mild/moderate PAD. Cause- smoking, coffee, lack of exercise, cholesterol, HTN.PCP has sent her to [facility]. 07/04.Reports had carotid artery u/s done (Vanesa) 06/04- waiting to hear results. OSTEOPOROSIS:BMD@VMGL 1-4 T= -2.7 (07/03; -10.8% since 2010); was -1.8 (2010)Left fem neck T= -3.1 (07/03); was -2.3Right prox fem T= -2.8 (07/03; -15.4% since 2010) Said she opted not to f/u- told meds were not good for her. PREV FROM 2010Right neck= -1.9Total left = -2.0Total right= -1.6; ROS:No fever or chills.No severe h/a.Some SOB. Slow going up/down stairs.No N/V or abdominal pain. Re-started TUMS after stopped.No muscle pains or cramping. Gets up slowly. Gets lightheaded if reaches arms up.Told of possible pinched vagus nerve. Bishop Chavira MD [address] [place] [address], [phone], [facility] 06/02/2023 14:25:58 OBGyn Episode No OBEpisode recorded.
--- OUTSIDE RECORDS SUMMARY | 2024-08-12 10:52 | XMS_ITS | Encounter Summary ---
Author Organization [facility] Address [phone] [facility] [place] [address] Care Team Providers Care Hogshead Builder Name Role Phone Koko Montgomery MD Primary Care Provider [phone] Encounter Details Date Type Department Care Team (Late st Contact Info) Description 06/19/2017 Transcribe Orders [facility] Lab [address] [place] [address] Richmond Garcia MD, MS [address] [address] [email or web address] Social History Tobacco Use Types Packs/Day Years Used Date Smoking Tobacco: Never Assessed Sex and Gender Information Value Date Recorded Sex Assigned at Female 07/24/2022 1:57 PM EST Gender Identity Female 07/24/2022 1:57 PM EST Sexual Orientation Straight 07/24/2022 1: 57 PM EST documented as of this encounter Plan of Treatment Upcoming Encounters Date Type Department Care Team (Late st Contact Info) Description 12/02/2024 1:30 PM EDT Appointment [facility] Internal Medicine [address] [place], [place] [phone] Koko Montgomery MD [address] [place] [address] [email or web address] documented as of this encounter Visit Diagnoses Not on filedocumented in this encounter Care Teams Hogshead Builder Relationship Specialty Start Date End Date Koko Montgomery MD [address] [place] [address] [email or web address] PCP - General 04/28/17 documented as of this encounter Additional Source Comments The information contained in this document represents components of the legal health record. It is not the complete legal health record.[facility]
--- OUTSIDE RECORDS SUMMARY | 2024-08-12 10:52 | XMS_ITS | Encounter Summary ---
Author Organization [facility] Address [phone] [place] [address] Care Team Providers Care Coal Cager Name Role Phone Koko Montgomery MD Primary Care Provider [phone] Encounter Details Date Type Department Care Team (Late st Contact Info) Description 07/04/2024 Orders Only [facility] Internal Medicine [address] [place] [address] Provider, MD Bernard [address] [place] [address] Social History Tobacco Use Types Packs/Day Years [...] Info) Description 12/02/2024 1:30 PM EDT Appointment [facility] Internal Medicine [address] [place] [address] Koko Montgomery MD [address] [place] [address] [email or web address] documented as of this encounter Procedures Procedure Name Priority Date/Time Associated Diagnosis Comments OUTSIDE XR EXTREMITY UPPER REPORT ONLY Routine 06/30/2024 11:09 AM EST documented in this encounter Results * Outside XR Extremity Upper Report Only (06/30/2024 11:09 AM EST) Historical Provider MD EDMOND XR UPPER EXTR EMITY documented in this encounter Visit Diagnoses Not on filedocumented in this encounter Additional Health Concerns Assessment Noted Time PHQ-2 Depression Total Score: 0 02/20/20 23 2:48 PM EDT documented as of this encounter Care Teams Coal Cager Relationship Specialty Start Date End Date Koko Montgomery MD [address] [place] [address] PCP - General 04/28/17 documented as of this encounter Additional Source Comments The information contained in this document represents components of the legal health record. It is not the complete legal health record.[facility]
--- OUTSIDE RECORDS SUMMARY | 2024-08-12 10:52 | XMS_ITS | Encounter Summary ---
Author Organization [facility] Address [phone] On license of [facility] [place] [address] Care Team Providers Care Tester Equipment Name Role Phone Koko Montgomery MD Primary Care Provider [phone] Encounter Details Date Type Department Care Team (Late st Contact Info) Description 09/07/2017 Transcribe Orders [facility] Laboratory [address] [place], [place] [phone] Koko Montgomery MD [address] [place], [place] [phone] Social History Tobacco Use Types Packs/Day Years [...] Info) Description 12/02/2024 1:30 PM EDT Appointment [facility] Internal Medicine [address] [place], [place] [phone] Koko Montgomery MD [address] [place], [place] [phone] documented as of this encounter Visit Diagnoses Not on filedocumented in this encounter Additional Health Concerns Assessment Noted Time PHQ-2 Depression Total Score: 0 09/07/19 18 8:34 AM EST documented as of this encounter Care Teams Tester Equipment Relationship Specialty Start Date End Date Koko Montgomery MD [address] [place] [id number] PCP - General 04/28/17 documented as of this encounter Additional Source Comments The information contained in this document represents components of the legal health record. It is not the complete legal health record.[facility]
--- OUTSIDE RECORDS SUMMARY | 2024-08-12 10:52 | XMS_ITS | Encounter Summary ---
Author Organization [facility] Address [phone] [facility] [place] [address] Care Team Providers Care Grocery Deliverer Name Role Phone Koko Montgomery MD Primary Care Provider [phone] Encounter Details Date Type Department Care Team (Latest Contact Info) Description 05/12/2017 Transcribe Orders [facility] Laboratory [address] [place], [place] [phone] Koko Montgomery MD [address] [place], [place] [phone] Mixed hyperlipidemia (Primary Dx) Social History Tobacco Use Types Packs/Day Years [...] Info) Description 12/02/2024 1:30 PM EDT Appointment [facility] Internal Medicine [address] [place], [place] [phone] Koko Montgomery MD [address] [place], [place] [phone] documented as of this encounter Visit Diagnoses Diagnosis Mixed hyperlipidemia- Primary documented in this encounter Care Teams Grocery Deliverer Relationship Specialty Start Date End Date Koko Montgomery MD [address] [place] [address] [email or web address] PCP - General 04/28/17 documented as of this encounter Additional Source Comments The information contained in this document represents components of the legal health record. It is not the complete legal health record.[facility]
--- OUTSIDE RECORDS SUMMARY | 2024-08-12 10:53 | XMS_ITS | Encounter Summary ---
Author Organization [facility] Address [phone] [facility] [place] [address] Care Team Providers Care Finish Patcher Name Role Phone Unavailable Primary Care Provider Unavailabl e Encounter Details Date Type Department Care Team (Late Contact Info) Description 11/14/2010 Hospital Encounter [facility],Outside Imaging [address] [place], [place] [phone] System, Provider Not In, [facility] [address] [address] Social History Tobacco Use Types Packs/Day Years [...] Info) Description 12/02/2024 1:30 PM EDT Appointment [facility] [place] Internal Medicine [address] [place] [address] Koko Montgomery MD [address] [place] [address] [email or web address] documented as of this encounter Procedures Procedure Name Priority Date/Time Associated Diagnosis Comments BI MAMMOGRAM OUTSIDE (NO INTERPRETATION) Routine 11/14/2010 12:00 AM EDT documented in this encounter Results * Mammogram Outside (No Interpretation) (11/14/2010 12:00 AM EDT) Narrative SYSTEMGENERATED, DOCUMENTATION - 09/08/2017 12:15 PM EST This study is for PACS storage only and not for interpretation. Provider Not In System PhD IMG OUTSIDE I ING W/OUT INTERPRETATION documented in this encounter Visit Diagnoses Not on filedocumented in this encounter Additional Source Comments The information contained in this document represents components of the legal health record. It is not the complete legal health record.[facility]
--- OUTSIDE RECORDS SUMMARY | 2024-08-12 10:53 | XMS_ITS | Encounter Summary ---
Author Organization [facility] Address [phone] [facility] [place] [address] Care Team Providers Care Sanitation Worker Cleaning Machinery Name Role Phone Koko Montgomery MD Primary Care Provider [phone] Encounter Details Date Type Department Care Team (Latest Contact Info) Description 05/04/2017 Transcribe Orders [facility]FT Lab [address] [place] [address] Richmond Garcia MD, MS [address] [address] [email or web address] Respiratory bronchiolitis interstitial lung disease (Primary Dx) Social History Tobacco Use Types [...] Info) Description 12/02/2024 1:30 PM EDT Appointment [facility] Internal Medicine [address] [place], [place] [phone] Koko Montgomery MD [address] [place] [address] [email or web address] documented as of this encounter Results * Pulmonary Function Test (10/09/2017 9:09 AM EDT) FEV1 1.35 liters FVC 1.74 liters FEV1/FVC 77 liters TLC 3.44 liters DLCO 9.7 ml/mmHg sec Anatomical Region Laterality Modality Other Impressions 10/09/2017 9:09 AM EDT PULMONARY FUNCTION STUDIES Full pulmonary function studies were performed on this 66 y.o. year-old female for evaluation of bronchiolitis. ??Review of the medical record reveals that the patient is a current smoker. ??Prior pulmonary function studies are available for comparison, dating back to 12/22/13. SPIROMETRY: ??The FEV1 is mildly impaired at 1.35 L or 79% predicted. ??The FVC is mildly impaired at 1.74 L or 72% predicted. The FEV1/FVC ratio is normal at 77%. ??After the administration of a bronchodilator agent, there is a 15% improvement in FVC to 2.00 L or 83% predicted, which is technically significant. ??The FEV1 improves by 9% to 1.46 L or 86% predicted. FLOW-VOLUME LOOPS: ??Evaluation of the flow-volume loops reveals normal morphology of both the inspiratory and expiratory limbs with no significant difference when comparing the tracings performed pre- and post-bronchodilator. LUNG VOLUME MEASUREMENTS BY PLETHYSMOGRAPHY: ??The total lung capacity is normal at 3.44 L or 85% predicted. ??The functional residual capacity is normal at 2.12 L or 94% predicted. ?? DIFFUSION CAPACITY: The diffusion capacity is moderately impaired at 9.7 mL/mmHg sec or 55% predicted. COMPARISON TO PRIOR STUDIES: When comparing to prior studies, there has been no significant change. Resting oxygen saturation is 97% on room air. IMPRESSION: Abnormal pulmonary function studies as evidenced primarily by an isolated moderate impairment in DLCO which, in this clinical context, may be secondary to emphysema, pulmonary vascular disease, interstitial lung disease and/or anemia. ??Lung volumes are normal, and spirometry measurements reveal no evidence of airflow obstruction. Richmond Garcia MD, MS PFT ORDERABLES documented in this encounter Visit Diagnoses Diagnosis Respiratory bronchiolitis interstitial lung disease- Primary Respiratory bronchiolitis interstitial lung disease documented in this encounter Care Teams Sanitation Worker Cleaning Machinery Relationship Specialty Start Date End Date Koko Montgomery MD [address] [place] [id number] [email or web address] PCP - General 04/28/17 documented as of this encounter Additional Source Comments The information contained in this document represents components of the legal health record. It is not the complete legal health record.[facility]
--- OUTSIDE RECORDS SUMMARY | 2024-08-12 10:55 | XMS_ITS | Encounter Summary ---
Author Organization [facility] Address [phone] [facility] [place] [address] Care Team Providers Care Agricultural Commodities Grader Name Role Phone Koko Montgomery MD Primary Care Provider [phone] Encounter Details Date Type Department Care Team (Late st Contact Info) Description 09/08/2017 Ancillary Orders [facility],Outside Imaging [address] [place], [place] [phone] System, Provider [place] In, [place] [address] Social History Tobacco Use Types Packs/Day Years [...] Info) Description 12/02/2024 1:30 PM EDT Appointment [facility] Internal Medicine [address] [place], [place] [phone] Koko Montgomery MD 40 [place] [address] [email or web address] documented as of this encounter Results * Mammogram Outside (No Interpretation) (03/10/2013 12:00 AM EDT) Narrative SYSTEMGENERATED, DOCUMENTATION - 09/08/2017 12:14 PM EST This study is for PACS storage only and not for interpretation. Provider Not In System PhD IMG OUTSIDE I MAGING W/OUT INTERPRETATION * Mammogram Outside (No Interpretation) (11/14/2010 12:00 AM EDT) Narrative SYSTEMGENERATED, DOCUMENTATION - 09/08/2017 12:15 PM EST This study is for PACS storage only and not for interpretation. Provider Not In System PhD IMG OUTSIDE I MAGING W/OUT INTERPRETATION * Mammogram Outside (No Interpretation) (10/19/2007 12:00 AM EDT) Narrative SYSTEMGENERATED, DOCUMENTATION - 09/08/2017 12:14 PM EST This study is for PACS storage only and not for interpretation. Provider Not In System PhD IMG OUTSIDE I MAGING W/OUT INTERPRETATION * Mammogram Outside (No Interpretation) (04/09/2005 12:00 AM EDT) Narrative SYSTEMGENERATED, DOCUMENTATION - 09/08/2017 12:13 PM EST This study is for PACS storage only and not for interpretation. Provider Not In System PhD IMG OUTSIDE I MAGING W/OUT INTERPRETATION documented in this encounter Visit Diagnoses Not on filedocumented in this encounter Additional Health Concerns Assessment Noted Time PHQ-2 Depression Total Score: 0 09/07/19 18 8:34 AM EST documented as of this encounter Care Teams Agricultural Commodities Grader Relationship Specialty Start Date End Date Koko Montgomery MD [address] [place] [address] [email or web address] PCP - General 04/28/17 documented as of this encounter Additional Source Comments The information contained in this document represents components of the legal health record. It is not the complete legal health record.[facility]
--- OUTSIDE RECORDS SUMMARY | 2024-08-12 10:55 | XMS_ITS | Encounter Summary ---
Author Organization [facility] Address [phone] [facility] [place] [address] Care Team Providers Care Technical Sales Specialist Name Role Phone Koko Montgomery MD Primary Care Provider [phone] Encounter Details Date Type Department Care Team (Late st Contact Info) Description 10/07/2017 Transcribe Orders [facility] [address] [place] [address] Richmond Garcia MD, MS [address] [address] Social History Tobacco Use Types Packs/Day Years [...] Description 12/02/2024 1:30 PM EDT Appointment [facility] Internal Medicine [address] [place] [address] Koko Montgomery MD 40 [place] [address] documented as of this encounter Visit Diagnoses Not on filedocumented in this encounter Additional Health Concerns Assessment Noted Time PHQ-2 Depression Total Score: 0 09/07/19 18 8:34 AM EST documented as of this encounter Care Teams Technical Sales Specialist Relationship Specialty Start Date End Date Kook Montgomery MD [address] [place] [address] [email or web address] PCP - General 04/28/17 documented as of this encounter Additional Source Comments The information contained in this document represents components of the legal health record. It is not the complete legal health record.[facility]
--- OUTSIDE RECORDS SUMMARY | 2024-08-12 10:55 | XMS_ITS | Encounter Summary ---
Author Organization [facility] Address [phone] [facility] [place] [address] [address] Care Team Providers Care Actuary Clerk Name Role Phone Unavailable Primary Care Provider Unavailabl e Encounter Details Date Type Department Care Team (Late Contact Info) Description 04/09/2005 Hospital Encounter [facility],Outside Imaging [address] [place], [place] [phone] System, Provider Not In, [facility] [address] [address] Social History Tobacco Use Types Packs/Day Years [...] Description 12/02/2024 1:30 PM EDT Appointment [facility] Internal Medicine 40 [place] [address] Koko Montgomery MD 40 [place] [address] [email or web address] documented as of this encounter Procedures Procedure [...] It is not the complete legal health record.[facility]
--- OUTSIDE RECORDS SUMMARY | 2024-08-12 10:55 | XMS_ITS | Encounter Summary ---
Author Organization [facility] Address [phone] [facility] [place] [address] Care Team Providers Care Grease Packer Name Role Phone Unavailable Primary Care Provider Unavailabl e Encounter Details Date Type Department Care Team (Late Contact Info) Description 10/19/2007 Hospital Encounter [facility],Outside Imaging 30 [place], [place] [phone] System, Provider Not In, [facility] [address] [address] Social History Tobacco Use Types Packs/Day Years [...] Description 12/02/2024 1:30 PM EDT Appointment [facility] Internal Medicine 40 [place] [address] Koko Montgomery MD 40 [place] [address] [email or web address] documented as of this encounter Procedures Procedure [...] It is not the complete legal health record.[facility]
== END 2024-08-11 10:11 | disposition home or self-care (01) ==
LOC: HO.HOSX 10:10
PROVIDERS: Visit Provider Physician Assistant
DX: Z13.89 Encounter for screening for other disorder (principal)

== ENCOUNTER → 2024-08-17 09:24 | Outpatient (BNVA) | payer MEDICARE, SELFPAY | PROVIDERS: PCP Internal Medicine; Visit Provider Internal Medicine | DX: I25.10 Atherosclerotic heart disease of native coronary artery without angina pectoris (principal); I65.22 Occlusion and stenosis of left carotid artery; I10 Essential (primary) hypertension; E78.2 Mixed hyperlipidemia; F17.210 Nicotine dependence, cigarettes, uncomplicated | CPT/HCPCS: 93005; 99212 ==

== ENCOUNTER 2025-02-21 12:42 | Outpatient (REF) | payer MEDICARE, SELFPAY ==
--- NOTE | ~2025-02-21 | CT_ITS ---
CLINICAL HISTORY: F17.210 - Nicotine dependence, cigarettes, uncomplicated CT lung cancer screening (LDCT) Comparison: CT/KS/SR - CT LUNG SCREENING - 01/19/24 12:48 EDT Technique: Axial CT images of the chest using low-dose technique. Referring provider counseled the patient on shared decision-making for LDCT screening. Additional counseling was provided on smoking cessation. Effective radiation dose total: DLP 39.9 mGycm, CTDIvol 1.1 mGy. Findings: Lung: Stable mild paraseptal and centrilobular emphysema. No acute process. Previously seen left lower lobe ground-glass opacities resolved. Stable multiple small pulmonary nodules, dominant nodules are 5 mm solid nodule left upper lobe on series 6, image 38 and right upper lobe on image 40. No new pulmonary nodule. Coronary artery calcifications: Stable mild Limited upper abdomen: Unremarkable Other: Stable lobulated enlargement of the left thyroid lobe with heterogeneous attenuation and contains curvilinear calcification, likely related to thyroid nodules. Impression: LungRADS 2 - Benign Appearance: Continue annual screening with low dose Chest CT in 12 months. ##L2## Category 1: Normal; continue annual screening Category 2: Benign appearance or behavior, continue annual screening Category 3: Probably benign, [address] recommended Category 4A: Suspicious, [address] recommended; may consider PET/CT Category 4B: Suspicious, Additional diagnostics and/or tissue sampling recommended Category 4X: Suspicious, Additional diagnostics and/or tissue sampling recommended Category 0: Recalls (incomplete screen due to Incomplete coverage, Noise, Respiratory motion, Expiration, Obscured by acute abnormality) This document has been electronically signed by: La Proctor MD on 02/23/2025 08:22:31
--- OUTSIDE RECORDS SUMMARY | 2025-02-21 13:24 | XMS_ITS | Patient Health Record ---
Author Organization [facility] Address [address] [facility] 4TH [place] [address] Care Team Providers Care Rn Bariatric Name Role Phone Koko Montgomery Primary Care Provider Shawn Del Angel MD,MPH, Alvino Lozano [phone] Reason For Referral Reason [id number] Referring Provider First Name Koko Referring Provider Last Name Ulises Referred Organization [facility] Referred Provider Alvino Del Angel Referred Address [address] [facility],[address]TH FLOOR,[place], [place],[address], Referred Provider Specialty Otology, Lar yngology, Rhinology Referral Priority Routine Plan Of Treatment No Information Insurance Providers Payer Name Payer Address Payer Phone Subscriber Number Group Number Insured Name Patient Relationship to Insured Coverage Start Date Coverage End Date [employer] PREFERRED [address] [place] [phone] [id number] Roro Tam Self - patient is the insured
--- OUTSIDE RECORDS SUMMARY | 2025-02-21 13:24 | XMS_ITS | Patient Health Record ---
Author Organization [facility] Address [address] [place] [address] Care Team Providers Care Change Management Coordinator Name Role Phone Koko Montgomery MD Primary Care Provider Paul Joiner Unavailable [phone] Allergies Allergen (clinical drug ingredient) Drug/Non Drug Allergy documented on EMR Reaction Allergy Type Onset Date Status simvastatin Simvastatin Unknown Drug Allergy Act rob sulfamethoxazole / trimethoprim Bactrim Unknown Drug Allergy Active Reason For Referral No Information Medications Medication SIG (Take, Route, Frequency, Duration) Notes Start Date End Date Status Omeprazole 20 MG 1 capsule Orally Onc e a day 10/05/2014 Active Aspirin 81 MG 1 tablet Orally Once a day Active FLUoxetine HCl 20 MG TAKE 1 CAPSULE BY MOUTH EVERY DAY Oral for 90 Active hydroCHLOROthiazide 12.5 MG TAKE 1 TABLE T BY MOUTH EVERY DAY Oral for 90 Active Ezetimibe 10 MG TAKE 1 TABLET BY TINO TH EVERY DAY Oral for 30 Active Fluticasone-Salmeterol 113-1 4 MCG/ACT INHALE 1 PUFF INTO THE LUNGS TWICE DAILY Diagnosis Unavailable Inhalation for 90 Active Metoprolol Succinate ER 25 MG 1 tablet O rally Once a day Active Vitamin D3 1000 UNIT 1 capsule Orally On ce a day Active Restasis 0.05 % 1 drop into affected eye Ophthalmic Twice a day Active Tums 500 MG 1 tablet Orally Once a day for 30 day(s) Active Immunizations Vaccine Route Administration Date Status Comme nts Influenza Unknown 01/14/2022 Refused Social History Tobacco Use: Social History Observation Description Date Details (start date - stop date) Current Smoker NA - NA Tobacco Use/Smoking Question Answer Notes Patient is a current smoker How often do you smoke cigarettes? every day How many cigarettes a day do you smoke? 11-20 How soon after you wake up do you smoke your fir st cigarette? 6-30 minutes Are you interested in quitting? Not ready to kemal t Alcohol Screen Question Answer Notes Did you have a drink contain ing alcohol in the past year? Yes How often did you have a dri nk containing alcohol in the past year? Monthly or less (1 point) How many drinks did you have on a typical day when you were drinking in the past year? 1 or 2 drinks (0 point) How often did you have 6 or more drinks on one occasion in the past year? Never (0 point) Points 1 Interpretation Negative Section Notes: Nonsmoker; no sig alcohol Smoker 3/4 ppd; no sig alcoh ol Problems Problem Type SNOMED Code ICD Code Onset Dates Problem Status W/U Status Risk Notes Problem Encounter for screening for malignant neoplasm of colon (Z12.11) Active confirmed Problem Pre-procedure evaluation check (421913326) Encounter for other preprocedural examination (Z01.818) Active confirmed Problem 301018392 Gastroesophageal reflux disease without esophagitis (K21.9) Active confirmed Problem Long-term current use of aspirin (482904000800172) Aspirin long-term use (Z79.82) Active confirmed Problem 831965978 Right upper quadrant abdominal pain (R10.11) Active confirmed Problem Diverticulosis of colon (162505389) Diverticulosis of colon (K57.30) Active confirmed Plan Of Treatment Future Test Test Name Order Date COLONOSCOPY 01/14/2022 Insurance Providers Payer Name Payer Address Payer Phone Subscriber Number Group Number Insured Name Patient Relationship to Insured Coverage Start Date Coverage End Date [employer] PREFERRED [address] [place] [phone] [id number] DUNLAP Self - patient is the insured Medical (General) History Medical History History ICD Code Denies CO,DM,CVA,renal disease COPD GERD--neg. EGD in 2000 and --small HH, otherwise negative; no esophagitis or Marvin's esophagus Neg. screening colonoscopy i n 2000 and 12/2010--hyperplastic polyps, diverticulosis, internal hemorrhoids Irregular heartbeat Hypertension Surgical History Surgery Date(Month/Year) Lung biopsy D&C
--- OUTSIDE RECORDS SUMMARY | 2025-02-21 13:24 | XMS_ITS | Encounter Summary ---
Author Organization [facility] Address [address] [place] [address] Phone Care Team Providers Care Skidder Lever Operator Name Role Phone Koko Montgomery MD Primary Care Provider [phone] Encounter Details Date Type Department Care Team (Late Contact Info) Description 03/09/2018 Procedure Pass [facility], Ct Scan - [address] [address] Social History Tobacco Use Types Packs/Day Years Used Date Smoking Tobacco: Every Day Cigarettes 1 50 Smokeless Tobacco: Never Alcohol Use Standard Drinks/Week Comments No 0 (1 standard drink = 0.6 oz pur e alcohol) Comments No Sex and Gender Information Value Date Recorded Sex Assigned at Female 07/24/2022 1:57 PM EST Legal Sex Female 10:02 PM EDT Gender Identity Female 07/24/2022 1:57 PM EST Sexual Orientation Straight 07/24/2022 1: 57 PM EST documented as of this encounter Plan of Treatment Upcoming Encounters Date Type Department Care Team (Late st Contact Info) Description 05/04/2025 10:15 AM EDT Office Visit [facility] Pulmonary, Allergy and Critical Care Medicine 10 [facility] [place] [address] [place] [address] Richmond Garcia MD, MS 10 [facility] 2nd [place] [address] 06/07/2025 1:00 PM EST Office Visit [facility] Internal Medicine 40 [place] [address] Koko Montgomery MD 40 [place] [address] 12/06/2025 2:00 PM EDT Office Visit [facility] Internal Medicine 40 [place] [address] Koko Montgomery MD 40 [place] [address] 05/15/2026 1:20 PM EST Office Visit [facility] Internal Medicine 40 [place], [place] [address] Palma Mi PA-C 40 [place] [address] [email or web address] documented as of this encounter Visit Diagnoses Not on filedocumented in this encounter Additional Health Concerns Assessment Noted Time PHQ-2 Depression Total Score: 0 09/07/19 18 8:34 AM EST documented as of this encounter Care Teams Skidder Lever Operator Relationship Specialty Start Date End Date Koko Montgomery MD 40 [place] [address] PCP - General 04/28/17 documented as of this encounter Additional Source Comments The information contained in this document represents components of the legal health record. It is not the complete legal health record.[facility]
== END 2025-02-21 12:43 | disposition home or self-care (01) ==
LOC: HO.CT 12:42
PROVIDERS: PCP Internal Medicine; Visit Provider Physician Assistant Medical
DX: Z12.2 Encounter for screening for malignant neoplasm of respiratory organs (principal); F17.210 Nicotine dependence, cigarettes, uncomplicated
CPT/HCPCS: 71271

== ENCOUNTER → 2025-02-21 12:44 | Outpatient (BNV) | payer MEDICARE, SELFPAY | PROVIDERS: PCP Internal Medicine; Visit Provider Radiology Diagnostic Radiology | DX: F17.210 Nicotine dependence, cigarettes, uncomplicated (principal) | CPT/HCPCS: 71271 ==

== ENCOUNTER 2025-04-18 09:46 | Outpatient (REF) | payer MEDICARE, SELFPAY ==
--- OUTSIDE RECORDS SUMMARY | 2005-04-09 | XMS_ITS | Encounter Summary ---
Author Organization [facility] Address [address] [place] [address] [place] [phone] Phone Care Team Providers Care Graining Machine Operator Name Role Phone Unavailable Primary Care Provider Unavailabl e Encounter Details Date Type Department Care Team (Late st Contact Info) Description 04/09/2005 Hospital Encounter [facility],Outside Imaging [address] [place], [place] [id number] System, Provider [place] In, [place] [address] Social History Tobacco Use Types Packs/Day Years Used Date Smoking Tobacco: Every Day Cigarettes 0.7 64.8 Started: 1961 Smokeless Tobacco: Never Comments:0.75-1 ppd-noted 02/17/25 Alcohol Use Standard Drinks/Week Comments Yes 0 (1 standard drink = 0.6 oz pur e alcohol) 1 drink a month Education Answer Date Recorded Are you interested in more education? Not on alisah e 11/07/2022 Are you concerned about learning? Not on file 11/07/2022 No 11/07/2022 No 11/07/2022 Digital Access Answer Date Recorded No 12/06/2022 No 12/06/2022 Reliable internet access at home? Not on file 12/06/2022 Device with a working camera? Not on file Intimate Partner Violence Answer Date R ecorded Denied Basic Needs Not on file 12/02/2024 In the past 12 months have y ou been in a relationship with a person who hurts, threatens, or tries to control you? No 12/02/2024 Worried food would run out Not on file 12/02 In the past 12 months have y ou been in a relationship with a person who hurts, threatens, or tries to control you? No 12/02/2024 Comments No Sex and Gender Information Value Date Recorded Sex Assigned at Female 07/24/2022 1:57 PM EST Legal Sex Female 10:02 PM EDT Gender Identity Female 07/24/2022 1:57 PM EST Sexual Orientation Straight 07/24/2022 1: 57 PM EST documented as of this encounter Plan of Treatment Upcoming Encounters Date Type Department Care Team ([facility] st Contact Info) Description 05/04/2025 10:15 AM EDT Office Visit [facility] Pulmonary, Allergy and Critical Care Medicine [address] [place] [address] [address] [place], [place] [phone] Richmond Garcia MD, MS [address] [address] 06/07/2025 1:00 PM EST Office Visit [facility] Internal Medicine [address] [place] [address] Koko Montgomery MD [address] [place] [address] 12/06/2025 2:00 PM EDT Office Visit [facility] Internal Medicine [address] [place] [address] Koko Montgomery MD [address] [place] [address] 05/15/2026 1:20 PM EST Office Visit [facility] Internal Medicine [address] [place] [address] Palma Mi PA-C [address] [place] [address] documented as of this encounter Procedures Procedure Name Priority Date/Time Associated Diagnosis Comments BI MAMMOGRAM OUTSIDE (NO INTERPRETATION) Routine 04/09/2005 12:00 AM EDT documented in this encounter Results * Mammogram Outside (No Interpretation) (04/09/2005 12:00 AM EDT) Narrative SYSTEMGENERATED, DOCUMENTATION - 09/08/2017 12:13 PM EST This study is for PACS storage only and not for interpretation. us Provider Not In System PhD IMG OUTSIDE IMAGING W /OUT INTERPRETATION Final Result documented in this encounter Visit Diagnoses Not on filedocumented in this encounter Additional Source Comments The information contained in this document represents components of the legal health record. It is not the complete legal health record.[facility]
--- OUTSIDE RECORDS SUMMARY | 2007-10-19 | XMS_ITS | Encounter Summary ---
Author Organization [facility] Address [address] [place] [address] [place] [phone] Phone Care Team Providers Care E Commerce Analyst Name Role Phone Unavailable Primary Care Provider Unavailabl e Encounter Details Date Type Department Care Team (Late st Contact Info) Description 10/19/2007 Hospital Encounter [facility],Outside Imaging [address] [place], [place] [phone] System, Provider [place] In, [place] [address] Social History Tobacco Use Types Packs/Day Years Used Date Smoking Tobacco: Every Day Cigarettes 0.7 64.8 Started: 1961 Smokeless Tobacco: Never Comments:0.75-1 ppd-noted 02/17/25 Alcohol Use Standard Drinks/Week Comments Yes 0 (1 standard drink = 0.6 oz pur e alcohol) 1 drink a month Education Answer Date Recorded Are you interested in more education? Not on alisha e 11/07/2022 Are you concerned about learning? [...] Upcoming Encounters Date Type Department Care Team ([facility] st Contact Info) Description 05/04/2025 10:15 AM EDT Office Visit [facility] Pulmonary, Allergy and Critical Care Medicine [address] [place] [address] [address] [place], [place] [phone] Richmond Garcia MD, MS [address] [address] 06/07/2025 1:00 PM EST Office Visit [facility] Internal Medicine [address] [place] [address] Koko Montgomery MD [address] [place] [address] 12/06/2025 2:00 PM EDT Office Visit [facility] Internal Medicine [address] [place] [address] Koko Montgomery MD [address] [place] [address] 05/15/2026 1:20 PM EST Office Visit [facility] Internal Medicine [address] [place] [address] Palma Mi PA-C [address] [place] [address] documented as of this encounter Procedures Procedure Name Priority Date/Time Associated Diagnosis Comments BI MAMMOGRAM OUTSIDE (NO INTERPRETATION) Routine 10/19/2007 12:00 AM EDT documented in this encounter Results * Mammogram Outside (No Interpretation) (10/19/2007 12:00 AM EDT) Narrative SYSTEMGENERATED, DOCUMENTATION - 09/08/2017 12:14 PM EST This study is for PACS storage only and not for interpretation. us Provider Not In System PhD IMG OUTSIDE IMAGING W /OUT INTERPRETATION Final Result documented in this encounter Visit Diagnoses Not on filedocumented in this encounter Additional Source Comments The information contained in this document represents components of the legal health record. It is not the complete legal health record.[facility]
--- OUTSIDE RECORDS SUMMARY | 2010-11-14 | XMS_ITS | Encounter Summary ---
Author Organization [facility] Address [address] [place] [address] [place] [phone] Phone Care Team Providers Care Production Support Specialist Name Role Phone Unavailable Primary Care Provider Unavailabl e Encounter Details Date Type Department Care Team (Late st Contact Info) Description 11/14/2010 Hospital Encounter [facility],Outside Imaging [address] [place], [place] [phone] System, Provider [place] In, [place] [address] Social History Tobacco Use Types Packs/Day Years [...] Description 05/04/2025 10:15 AM EDT Office [place] [facility] [place]monary, Allergy and Critical Care Medicine [address] [place] [address] [place], [place] [phone] Richmond Garcia MD, MS [address] [address] 06/07/2025 1:00 PM EST Office Visit [facility] Internal Medicine [address] [place] [address] Koko Montgomery MD [address] [place] [address] 12/06/2025 2:00 PM EDT Office Visit [facility] Internal Medicine [address] [place] [address] Koko Montgomery MD [address] [place] [address] 05/15/2026 1:20 PM EST Office Visit [facility] Internal Medicine [address] [place] [address] Palma Mi PA-C [address] [place] [address] documented as of this encounter Procedures Procedure Name Priority Date/Time Associated Diagnosis Comments BI MAMMOGRAM OUTSIDE (NO INTERPRETATION) Routine 11/14/2010 12:00 AM EDT documented in this encounter Results * Mammogram Outside (No Interpretation) (11/14/2010 12:00 AM EDT) Narrative SYSTEMGENERATED, DOCUMENTATION - 09/08/2017 12:15 PM EST This study is for PACS storage only and not for interpretation. us Provider Not In System PhD IMG OUTSIDE IMAGING W /OUT INTERPRETATION Final Result documented in this encounter Visit Diagnoses Not on filedocumented in this encounter Additional Source Comments The information contained in this document represents components of the legal health record. It is not the complete legal health record.[facility]
--- OUTSIDE RECORDS SUMMARY | 2013-03-10 | XMS_ITS | Encounter Summary ---
Author Organization [facility] Address [address] [place] [address] [place] [address] Phone Care Team Providers Care Syrup Maker Cook Name Role Phone Unavailable Primary Care Provider Unavailabl e Encounter Details Date Type Department Care Team (Late st Contact Info) Description 03/10/2013 Hospital Encounter [facility],Outside Imaging [address] [place], [place] [phone] System, Provider [place] In, [place] [address] Social History Tobacco Use Types Packs/Day Years [...] Upcoming Encounters Date Type Department Care Team ([facility] st Contact Info) Description 05/04/2025 10:15 AM EDT Office [place] [facility] [place]monary, Allergy and Critical Care Medicine [address] [place] [address] A [place], [place] [phone] Richmond Garcia MD, MS [address] [address] 06/07/2025 1:00 PM EST Office Visit [facility] Internal Medicine [address] [place] [address] Koko Montgomery MD [address] [place] [address] 12/06/2025 2:00 PM EDT Office Visit [facility] Internal Medicine [address] [place] [address] Koko Montgomery MD [address] [place] [address] 05/15/2026 1:20 PM EST Office Visit [facility] Internal Medicine [address] [place] [address] Palma Mi PA-C [address] [place] [address] documented as of this encounter Procedures Procedure Name Priority Date/Time Associated Diagnosis Comments BI MAMMOGRAM OUTSIDE (NO INTERPRETATION) Routine 03/10/2013 12:00 AM EDT documented in this encounter Results * Mammogram Outside (No Interpretation) (03/10/2013 12:00 AM EDT) Narrative SYSTEMGENERATED, DOCUMENTATION - [...] It is not the complete legal health record.[facility]
--- OUTSIDE RECORDS SUMMARY | 2025-02-15 06:00 | XMS_ITS ---
Author Organization [facility] Address [address] [facility] [address] [place] [address] Care Team Providers Care Load Dispatcher Name Role Phone Koko Montgomery Primary Care Provider Shawn Del Angel MD,MPH, Alvino Marta [phone] REASON FOR VISIT mouth breating, Encounters Encounter Location Date Provider Diagnosis [facility] [address] [address] 02/15/2025 Alvino Del Angel Plan Of Treatment No Information Progress Notes * Kirsten DUNLAPOB:[birth year] (74 yo F)Acc No.[id number]:02/15/2025 Progress Notes Patient: Roro MUSE Provider: Yudelka Del Angel MD, MPH :1950 A ge:74 Y S ex:Female Date:02/15/2025 [address] [facility] Pcp:Koko Montgomery Subjective: * Chief Complaints: * 1 . Mouth breating,. * Medical History: Objective: * Vitals: * Physical Examination: Assessment: Plan: * Treatment: * Images: * Electronic signature of Kaushal Del Angel MD,MPH, MD, MPH on 04/18/2025 at 11:13 AM EDT Sign off status: Pending * Provider: Yudelka Del Angel MD, MPH Date: 0 02/15/2025 Generated for Printi ng/Faxing/eTransmitting on: 1 11:13 AM EDT
--- NOTE | ~2025-04-18 | CT_ITS ---
EXAMINATION: CT MAXILLOFACIAL WITHOUT IV CONTRAST HISTORY: Deviated nasal septum sinusitis, chronic or recurrent. TECHNIQUE: Serial 2 mm helically acquired images were obtained of the facial bones per standard departmental protocol. Coronal and sagittal reformatted images were also obtained and evaluated. One or more of the following techniques was used for dose reduction: Automated exposure control, adjustment of the mA and/or kV according to patient size, use of iterative reconstruction technique. DLP: 158 mGy-cm COMPARISON: There are no prior studies available for comparison. FINDINGS: The facial bones are intact. No fractures are identified. The globes are intact. The paranasal sinuses are clear. Mastoid air cells and middle ear cavities are normally pneumatized. There is mild nasal septal deviation to the right. There is a rhonda bullosa left middle turbinate. The visualized portion of the brain is unremarkable. No soft tissue abnormality is identified. CT/CT facial bones wo IV con IMPRESSION: Mild nasal septal deviation to the right. The paranasal sinuses are clear. Electronically signed by: Paul Durán MD 04/18/2025 10:25 AM EDT
--- OUTSIDE RECORDS SUMMARY | 2025-04-18 11:13 | XMS_ITS | Encounter Summary ---
Author Organization [facility] Address [address] [place] [address] Phone Care Team Providers Care Day Care Attendant Name Role Phone Koko Montgomery MD Primary Care Provider [phone] Encounter Details Date Type Department Care Team (Latest Contact Info) Description 05/12/2017 Transcribe Orders [facility] [address] [place] [address] Koko Montgomery MD 40 [place] [address] Mixed hyperlipidemia (Primary Dx) Social History Tobacco Use Types Packs/Day Years Used Date Smoking Tobacco: Never Assessed Comments Unknown Sex and Gender Information Value Date Recorded [...] Pulmonary, Allergy and Critical Care Medicine [address] [place] [address] [place] [address] Richmond Garcia MD, MS 10 [facility] 2nd [place] [address] 06/07/2025 1:00 PM EST Office Visit [facility] Internal Medicine 40 [place], [place] [phone] Koko Montgomery MD 40 [place], [place] [phone] 12/06/2025 2:00 PM EDT Office Visit [facility] Internal Medicine 40 [place], [place] [phone] Koko Montgomery MD 40 [place] [address] 05/15/2026 1:20 PM EST Office Visit [facility] Internal Medicine 40 [place], [place] [phone] Palma Mi PA-C 40 [place], [place] [phone] documented as of this encounter Visit Diagnoses Diagnosis Mixed hyperlipidemia- Primary documented in this encounter Care Teams Day Care Attendant Relationship Specialty Start Date End Date Koko Montgomery MD [address] [place], [place] [phone] PCP - General 04/28/17 documented as of this encounter Additional Source Comments The information contained in this document represents components of the legal health record. It is not the complete legal health record.[facility]
--- OUTSIDE RECORDS SUMMARY | 2025-04-18 11:13 | XMS_ITS | Patient Health Record ---
Author Organization [facility] Address [address] [facility] 4TH [place] [address] Care Team Providers Care Furniture Delivery Driver Name Role Phone Koko Montgomery Primary Care Provider Shawn Del Angel MD,MPH, Alvino Lozano [phone] Reason For Referral Reason [id number] Referring Provider First Name Koko Referring Provider Last Name Ulises Referred Organization [facility] Referred Provider Alvino Del Angel Referred Address [address] [facility],[address]LO[address],[place], [place],[address], Referred Provider Specialty Otology, Lar yngology, Rhinology Referral Priority Routine Plan Of Treatment No Information Insurance Providers Payer Name Payer Address Payer Phone Subscriber Number Group Number Insured Name Patient Relationship to Insured Coverage Start Date Coverage End Date [employer] PREFERRED [address] [place] [address] [phone] [id number] Roro Tam Self - patient is the insured
--- OUTSIDE RECORDS SUMMARY | 2025-04-18 11:13 | XMS_ITS | Encounter Summary ---
Author Organization [facility] Address [address] [place] [address] Phone Care Team Providers Care Scalemaker Name Role Phone Koko Montgomery MD Primary Care Provider [phone] Encounter Details Date Type Department Care Team (Late Contact Info) Description 09/08/2017 Ancillary Orders [facility],Outside Imaging 30 [place], [place] [phone] System, Provider Not In, [facility] [address] [address] Social History Tobacco Use Types Packs/Day Years Used Date Smoking Tobacco: Every Day Cigarettes 1 50 Smokeless Tobacco: Never Alcohol Use Standard Drinks/Week Comments No 0 (1 standard drink = 0.6 oz pur e alcohol) Comments Unknown Sex and Gender Information Value Date Recorded Sex Assigned at Female 07/24/2022 1:57 PM EST Legal Sex Female 10:02 PM EDT Gender Identity Female 07/24/2022 1:57 PM EST Sexual Orientation Straight 07/24/2022 1: 57 PM EST documented as of this encounter Plan of Treatment Upcoming Encounters Date Type Department Care Team (Late Contact Info) Description 05/04/2025 10:15 AM EDT Office Visit [facility] Pulmonary, Allergy and Critical Care Medicine [address] [place] [address] Richmond Garcia MD, MS 10 [facility] 2nd [place] [address] 06/07/2025 1:00 PM EST Office Visit [facility] Internal Medicine 40 [place] [address] Koko Montgomery MD 40 [place] [address] 12/06/2025 2:00 PM EDT Office Visit [facility] Internal Medicine 40 [place] [address] Koko Montgomery MD 40 [place] [address] 05/15/2026 1:20 PM EST Office Visit [facility] Internal Medicine 40 [place], [place] [phone] Palma Mi PA-C 40 [place] [address] [email or web address] documented as of this encounter Results * Mammogram Outside (No Interpretation) (03/10/2013 12:00 AM EDT) Narrative SYSTEMGENERATED, DOCUMENTATION - 09/08/2017 12:14 PM EST This study is for PACS storage only and not for interpretation. us Provider Not In System PhD IMG OUTSIDE IMAGING W /OUT INTERPRETATION Final Result * Mammogram Outside (No Interpretation) (11/14/2010 12:00 AM EDT) Narrative SYSTEMGENERATED, DOCUMENTATION - 09/08/2017 12:15 PM EST This study is for PACS storage only and not for interpretation. us Provider Not In System PhD IMG OUTSIDE IMAGING W /OUT INTERPRETATION Final Result * Mammogram Outside (No Interpretation) (10/19/2007 12:00 AM EDT) Narrative SYSTEMGENERATED, DOCUMENTATION - 09/08/2017 12:14 PM EST This study is for PACS storage only and not for interpretation. us Provider Not In System PhD IMG OUTSIDE IMAGING W /OUT INTERPRETATION Final Result * Mammogram Outside (No Interpretation) (04/09/2005 12:00 [...] documented as of this encounter Care Teams Scalemaker Relationship Specialty Start Date End Date Koko Montgomery MD [address] [place] [address] [email or web address] PCP - General 04/28/17 documented as of this encounter Additional Source Comments The information contained in this document represents components of the legal health record. It is not the complete legal health record.[facility]
--- OUTSIDE RECORDS SUMMARY | 2025-04-18 11:13 | XMS_ITS | Encounter Summary ---
Author Organization [facility] Address [address] [place] [address] [place] [address] Phone Care Team Providers Care Lockstitch Zipper Setter Name Role Phone Koko Montgomery MD Primary Care Provider [phone] Encounter Details Date Type Department Care Team (Late st Contact Info) Description 03/15/2025 Telephone [email or web address] [facility] [address] [place], [place] [phone] [email or web address] Social History Tobacco Use Types Packs/Day Years [...] Description 05/04/2025 10:15 AM EDT Office [place] [facility] Critical Care [place] [address] [place] [address] [place] MD, [place] [address] [address] 06/07/2025 1:00 PM EST Office Visit [facility] Internal Medicine [address] [place] [address] Koko Montgomery MD [address] [place], [place] 12/06/2025 2:00 PM EDT Office Visit [facility] Internal Medicine [address] [place] [address] Koko Montgomery MD [address] [place], [place] 05/15/2026 1:20 PM EST Office Visit [facility] Internal Medicine [address] [place] [address] Palma Mi PA-C 40 [place] [address] documented as of this encounter Visit Diagnoses Not on filedocumented in this encounter Additional Health Concerns Assessment Noted Time PHQ-9 Depression Total Score: 8 12/03/19 25 1:28 PM EDT PHQ-2 Depression Total Score: 4 12/03/19 25 1:28 PM EDT documented as of this encounter Care Teams Lockstitch Zipper Setter Relationship Specialty Start Date End Date Koko Montgomery MD [address] [place] [address] [email or web address] PCP - General 04/28/17 documented as of this encounter Additional Source Comments The information contained in this document represents components of the legal health record. It is not the complete legal health record.[facility]
--- OUTSIDE RECORDS SUMMARY | 2025-04-18 11:13 | XMS_ITS | Encounter Summary ---
Author Organization [facility] Address [address] [place] [address] Phone Care Team Providers Care Channel Development Director Name Role Phone Koko Montgomery MD Primary Care Provider [phone] Encounter Details Date Type Department Care Team (Late st Contact Info) Description 06/19/2017 Transcribe Orders [facility] [address] [place] [address] [place] Garcia MD, [place] [address] [address] Social History Tobacco Use Types Packs/Day Years [...] Critical Care Medicine [address] [place], [place] [phone] [place] Garcia MD, MS [address] [phone] 06/07/2025 1:00 PM EST Office Visit [facility] Internal Medicine [address] [place], [place] [phone] Koko Montgomery MD 40 [place] [address] 12/06/2025 2:00 PM EDT Office Visit [facility] Internal Medicine [address] [place] [address] Koko Montgomery MD 40 [place] [address] 05/15/2026 1:20 PM EST Office Visit [facility] Internal Medicine [address] [place] [address] Palma Mi PA-C [address] [place], [place] [phone] documented as of this encounter Visit Diagnoses Not on filedocumented in this encounter Care Teams Channel Development Director Relationship Specialty Start Date End Date Koko Montgomery MD 40 [place], [place] [phone] PCP - General 04/28/17 documented as of this encounter Additional Source Comments The information contained in this document represents components of the legal health record. It is not the complete legal health record.[facility]
--- OUTSIDE RECORDS SUMMARY | 2025-04-18 11:13 | XMS_ITS | Encounter Summary ---
Author Organization [facility] Address [address] [place] [address] Phone Care Team Providers Care Crystal Machining Coordinator Name Role Phone Koko Montgomery MD Primary Care Provider [phone] Encounter Details Date Type Department Care Team (Late Contact Info) Description 10/07/2017 Transcribe Orders [facility] [address] [place] [address] [place] Garcia MD, MS [address] [address] [email or web address] Social History Tobacco Use Types Packs/Day Years [...] Description 05/04/2025 10:15 AM EDT Office Visit [facility] Pulmonary, Allergy and Critical Care Medicine 10 [place], [place] [phone] [place] Garcia MD, MS [address] [phone] 06/07/2025 1:00 PM EST Office Visit [facility] Internal Medicine [address] [place] [address] Koko Montgomery MD 40 [place] [address] 12/06/2025 2:00 PM EDT Office Visit [facility] Internal Medicine [address] [place] [address] Koko Montgomery MD 40 [place] [address] 05/15/2026 1:20 PM EST Office Visit [facility] Internal Medicine [address] [place] [address] Palma Mi PA-C 40 [place] [address] documented as of this encounter Visit Diagnoses Not on filedocumented in this encounter Additional Health Concerns Assessment Noted Time PHQ-2 Depression Total Score: 0 09/07/19 18 8:34 AM EST documented as of this encounter Care Teams Crystal Machining Coordinator Relationship Specialty Start Date End Date Koko Montgomery MD [address] [place], [place] [phone] PCP - General 04/28/17 documented as of this encounter Additional Source Comments The information contained in this document represents components of the legal health record. It is not the complete legal health record.[facility]
--- OUTSIDE RECORDS SUMMARY | 2025-04-18 11:13 | XMS_ITS | Encounter Summary ---
Author Organization [facility] Address [address] [place] [address] Phone Care Team Providers Care Yellow Pages Space Salesperson Name Role Phone Koko Montgomery MD Primary Care Provider [phone] Encounter Details Date Type Department Care Team (Latest Contact Info) Description 05/04/2017 Transcribe Orders [facility] [address] [place] [address] [place] Garcia MD, MS [address] [address] Respiratory bronchiolitis interstitial lung disease (Primary Dx) [...] Pulmonary, Allergy and Critical Care Medicine 10 [place], [place] [phone] [place] Garcia MD, MS [address] [phone] 06/07/2025 1:00 PM EST Office Visit [facility] Internal Medicine [address] [place] [address] Koko Montgomery MD 40 [place], [place] [phone] [email or web address] 12/06/2025 2:00 PM EDT Office Visit [facility] Internal Medicine [address] [place], [place] [phone] Koko Montgomery MD 40 [place], [place] [phone] 05/15/2026 1:20 PM EST Office Visit [facility] Internal Medicine [address] [place], [place] [phone] Palma Mi PA-C [address] [place], [place] [phone] [email or web address] documented as of this encounter Results * Pulmonary Function Test (10/09/2017 9:09 AM EDT) FEV1 1.35 liters FVC 1.74 liters FEV1/FVC 77 liters TLC 3.44 liters DLCO 9.7 ml/mmHg sec Anatomical Region Laterality Modality Other Impressions 10/09/2017 9:09 AM EDT PULMONARY FUNCTION STUDIES Full pulmonary function studies were performed on this 66 y.o. year-old female for evaluation of bronchiolitis. Review of the medical record reveals that the patient is a current smoker. Prior pulmonary function studies are available for comparison, dating back to 12/22/13. SPIROMETRY: The FEV1 is mildly impaired at 1.35 L or 79% predicted. The FVC is mildly impaired at 1.74 L or 72% predicted. The FEV1/FVC ratio is normal at 77%. After the administration of a bronchodilator agent, there is a 15% improvement in FVC to 2.00 L or 83% predicted, which is technically significant. The FEV1 improves by 9% to 1.46 L or 86% predicted. FLOW-VOLUME LOOPS: Evaluation of the flow-volume loops reveals normal morphology of both the inspiratory and expiratory limbs with no significant difference when comparing the tracings performed pre- and post-bronchodilator. LUNG VOLUME MEASUREMENTS BY PLETHYSMOGRAPHY: The total lung capacity is normal at 3.44 L or 85% predicted. The functional residual capacity is normal at 2.12 L or 94% predicted. DIFFUSION CAPACITY: The diffusion capacity is moderately [...] vascular disease, interstitial lung disease and/or anemia. Lung volumes are normal, and spirometry measurements reveal no evidence of airflow obstruction. [place] Garcia MD, [place] PFT ORDERABLES Final Re sult documented in this encounter Visit Diagnoses Diagnosis Respiratory bronchiolitis interstitial lung disease- Primary Respiratory bronchiolitis interstitial lung disease documented in this encounter Care Teams Yellow Pages Space Salesperson Relationship Specialty Start Date End Date Koko Montgomery MD [address] [place] [address] [email or web address] PCP - General 04/28/17 documented as of this encounter Additional Source Comments The information contained in this document represents components of the legal health record. It is not the complete legal health record.[facility]
--- OUTSIDE RECORDS SUMMARY | 2025-04-18 11:13 | XMS_ITS | Encounter Summary ---
Author Organization [facility] Address [address] [place] [address] Phone Care Team Providers Care Retail And Restaurant Associate Name Role Phone Koko Montgomery MD Primary Care Provider [phone] Encounter Details Date Type Department Care Team (Late st Contact Info) Description 09/20/2021 Procedure Pass [facility] - [address] [place] [address] Social History Tobacco Use Types Packs/Day Years Used Date Smoking Tobacco: Every Day Cigarettes 1 50 Smokeless Tobacco: Never Comments:0.75-1 ppd Alcohol Use Standard Drinks/Week Comments Yes 0 (1 standard drink = 0.6 oz pur e alcohol) once every few months Comments No Sex and Gender Information Value [...] Critical Care Medicine [address] [place] [address] [place] Garcia MD, MS 10 [facility] [address] [place] [address] 06/07/2025 1:00 PM EST Office Visit [facility] Internal Medicine [address] [place] [address] Koko Montgomery MD [address] [place] [address] 12/06/2025 2:00 PM EDT Office Visit [facility] Internal Medicine [address] [place] [address] Koko Montgomery MD 40 [place] [address] 05/15/2026 1:20 PM EST Office Visit [facility] Internal Medicine [address] [place] [address] Palma Mi PA-C [address] [place], [place] [phone] documented as of this encounter Visit Diagnoses Not on filedocumented in this encounter Additional Health Concerns Assessment Noted Time PHQ-2 Depression Total Score: 0 09/21/19 22 12:52 PM EST documented as of this encounter Care Teams Retail And Restaurant Associate Relationship Specialty Start Date End Date Koko Montgomery MD [address] [place] [address] PCP - General 04/28/17 documented as of this encounter Additional Source Comments The information contained in this document represents components of the legal health record. It is not the complete legal health record.[facility]
--- OUTSIDE RECORDS SUMMARY | 2025-04-18 11:13 | XMS_ITS | Patient Health Record ---
Author Organization [facility] Address [address] [place] [phone] Care Team Providers Care Four Horse Hitch Driver Name Role Phone Koko Montgomery MD Primary Care Provider Paul Joiner Unavailable [phone] Allergies Allergen (clinical drug ingredient) Drug/Non Drug [...] Problem Status W/U Status Risk Notes Problem Screening for malignant neoplasm of colon (359727019) Encounter for screening for malignant neoplasm of colon (Z12.11) Active confirmed Problem Pre-procedure evaluation check (248462163) Encounter for other preprocedural examination (Z01.818) Active confirmed Problem 564454192 Gastroesophageal reflux disease without esophagitis (K21.9) Active confirmed Problem Long-term current use of aspirin (719849473138304) Aspirin long-term use (Z79.82) Active confirmed Problem 938063067 Right upper quadrant abdominal pain (R10.11) Active confirmed Problem Diverticulosis of colon (281746567) Diverticulosis of colon (K57.30) Active confirmed Plan Of Treatment Future Test Test Name Order Date COLONOSCOPY 01/14/2022 Next Appt Details Provider Name:Paul Brown Lemuel , 07/26/2025 02:00:00 PM, [address] [place] [address], [address], [place], [address], Insurance Providers Payer Name Payer Address Payer Phone Subscriber Number Group Number Insured Name Patient Relationship to Insured Coverage Start Date Coverage End Date [employer] P[employer]ED [address] [place] [address] [phone] [id number] Self - patient is the insured Medical (General) History Medical History History ICD Code Denies SC,DM,CVA,renal disease COPD GERD--neg. EGD in 2000 and --small HH, otherwise negative; no esophagitis or Marvin's esophagus Neg. screening colonoscopy i n 2000 and 12/2010--hyperplastic polyps, diverticulosis, internal hemorrhoids Irregular heartbeat Hypertension Surgical History Surgery Date(Month/Year) Lung biopsy D&C
--- OUTSIDE RECORDS SUMMARY | 2025-04-18 11:13 | XMS_ITS | Encounter Summary ---
Author Organization [facility] Address [address] [place] [address] Phone Care Team Providers Care Deputy Head Name Role Phone Koko Montgomery MD Primary Care Provider [phone] Encounter Details Date Type Department Care Team (Late Contact Info) Description 09/07/2017 Transcribe Orders [facility] [address] [place] [address] Koko Montgomery MD [address] [place] [address] [email or web address] Social History Tobacco Use Types Packs/Day Years [...] Critical Care Medicine [address] [place], [place] [phone] [place] Garcia MD, MS 10 [facility] [address] [place] [address] 06/07/2025 1:00 PM EST Office Visit [facility] Internal Medicine [address] [place] [address] Koko Montgomery MD [address] [place] [address] 12/06/2025 2:00 PM EDT Office Visit [facility] Internal Medicine [address] [place] [address] Koko Montgomery MD [address] [place] [address] 05/15/2026 1:20 PM EST Office Visit [facility] Internal Medicine [address] [place], [place] [phone] Palma Mi PA-C [address] [place], [place] [phone] documented as of this encounter Visit Diagnoses Not on filedocumented in this encounter Additional Health Concerns Assessment Noted Time PHQ-2 Depression Total Score: 0 09/07/19 18 8:34 AM EST documented as of this encounter Care Teams Deputy Head Relationship Specialty Start Date End Date Koko Montgomery MD [address] [place], [place] [phone] PCP - General 04/28/17 documented as of this encounter Additional Source Comments The information contained in this document represents components of the legal health record. It is not the complete legal health record.[facility]
--- OUTSIDE RECORDS SUMMARY | 2025-04-18 11:13 | XMS_ITS | Encounter Summary ---
Author Organization [facility] Address [address] [place] [address] Phone Care Team Providers Care Coater Smoking Pipe Name Role Phone Koko Montgomery MD Primary Care Provider [phone] Encounter Details Date Type Department Care Team (Late Contact Info) Description 03/09/2018 Procedure Pass [facility] Scan - [address] [address] Social History Tobacco Use Types Packs/Day Years [...] Pulmonary, Allergy and Critical Care Medicine 10 [facility] [address] [place] Garcia MD, MS 10 [facility] [address] [place] [address] 06/07/2025 1:00 PM EST Office Visit [facility] Internal Medicine [address] [place] [address] Koko Montgomery MD [address] [place] [address] 12/06/2025 2:00 PM EDT Office Visit [facility] Internal Medicine [address] [place] [address] Koko Montgomery MD [address] [place] [address] 05/15/2026 1:20 PM EST Office Visit [facility] Internal Medicine [address] [place], [place] [phone] Palma Mi PA-C [address] [place] [address] [email or web address] documented as of this encounter Visit Diagnoses Not on filedocumented in this encounter Additional Health Concerns Assessment Noted Time PHQ-2 Depression Total Score: 0 09/07/19 18 8:34 AM EST documented as of this encounter Care Teams Coater Smoking Pipe Relationship Specialty Start Date End Date Kkoo Montgomery MD [address] [place] [address] PCP - General 04/28/17 documented as of this encounter Additional Source Comments The information contained in this document represents components of the legal health record. It is not the complete legal health record.[facility]
--- OUTSIDE RECORDS SUMMARY | 2025-04-18 11:14 | XMS_ITS | Clinical Summary ---
Author Organization [facility] Address [address] [place] [id number] Phone Care Team Providers Care Environmental Conservation Professor Name Role Phone Koko Montgomery MD Primary Care Provider [phone] Allergies Active Allergy Reactions Criticality Noted Date Comments Atorvastatin Myalgia 09/23/2020 Simvastatin Other (See Comments) 02/25/2017 Leg cramps Sulfamethoxazole Unknown 03/10/2022 Trimethoprim Unknown 03/10/2022 Ezetimibe Cramps Low 01/09/2022 Cramps in LE Medications cholecalciferol, vitamin D3, 25 mcg (1,000 unit) capsule Take 1,000 Units by mouth daily. Active carboxymethylcel lulose (REFRESH TEARS) 0.5 % Drop 1-2 drops 4 (four) times a day. Active aspirin 81 MG EC tablet Take 81 mg by mouth daily. Active clobetasol (TEMOVATE) 0.05 % ointmentIndicati ons:Rash and other nonspecific skin eruption Apply 1 application topically daily as needed. 30 g 1 2 Active cycloSPORINE (RESTASIS) 0.05 % suspension Place 1 drop into each eye every 12 (twelve) hours. 2 Active Medication-Free Text Take 2-3 tablets by mouth every evening. Shaklee Herb-Laxative Active REPATHA SURECLICK 140 mg/mL PnIj subcutaneous pen injector Inject 140 mg under the skin every 14 (fourteen) days. 4 Active fluticasone propion-salmeter oL (AIRDUO RESPICLICK) 113-14 mcg/actuation inhalerIndicatio ns:Centrilobular emphysema Inhale 1 puff into the lungs 2 (two) times a day. 3 each 3 4 Active omeprazole (PRILOSEC) 40 MG capsuleIndicatio ns:Gastroesophag eal reflux disease without esophagitis TAKE 1 CAPSULE (40 MG TOTAL) BY MOUTH DAILY. 90 capsule 3 5 Active valsartan (DIOVAN) 40 MG tabletIndication s:Essential hypertension Take 1 tablet (40 mg total) by mouth daily. 90 tablet 3 5 Active fluticasone propionate (FLONASE) 50 mcg/actuation nasal sprayIndications :Allergic rhinitis, unspecified seasonality, unspecified trigger 2 sprays by Nasal route daily. 16 g 12 5 Active Active Problems Problem Noted Date Diagnosed Date Colicky RUQ abdominal pain 03/09/2025 Assessment & Plan (03/09/2025 4:01 PM EDT): She reports frequent burping, colicky right upper quadrant abdominal pain, and bloating symptoms for the past few months but have recently worsened. The symptoms are sometimes associated with greasy and spicy food. She is afebrile, hemodynamically stable, abdominal exam is benign, negative Warren's. Will obtain an H. pylori breath test to further assess. Will also obtain a CMP to further assess liver function and electrolyte abnormalities. Given her colicky right upper quadrant abdominal pain, will obtain a right upper quadrant abdominal ultrasound to further assess her liver and gallbladder. She should continue taking the omeprazole and can also add in famotidine for additional symptomatic management. Pre-diabetes 03/03/2024 Overview (03/03/2024): Dates back to 2018 Hematuria 03/03/2024 Internal hemorrhoids 03/02/2024 Assessment & Plan (03/02/2024 9:43 AM EDT): Internal hemorrhoids on CRC in 2021. She does have 1 external hemorrhoid, educated on need to avoid straining and maintain adequate hydration and fiber in diet Diverticulosis 03/02/2024 Assessment & Plan (03/02/2024 9:44 AM EDT): Reviewed that this was seen on CRC in 2021. Her abd exam is benign today. Will do blood work. I advised her if inflammation is noted, she will need to get a abd CT to assess further Constipation 03/02/2024 Assessment & Plan (03/02/2024 10:10 AM EDT): She reports a hx of needed laxative 2-3 a day. No hard stool felt on NOÉ today, abd exam is benign. Discussed hydration and dietary fiber. She will hold laxative until I get the labs back as I do not want a stimulant laxative if she has evidence of acute diverticulitis. Her exam is NEGATIVE and not suggestive of this Rectal bleeding 03/02/2024 Assessment & Plan (03/02/2024 9:47 AM EDT): Exam is reassuring, VSS and not orthostatic. No bleeding seen on rectal exam. Will get labs and follow up. She could have had one of the known internal hemorrhoids rupture, but will know more when labs return. She is not on portal therefore will call her once labs are back. I advised her that if she changes and gets dizzy, has more pain / bleeding/ fever, she should get to ER for evaluation Essential hypertension 02/19/2023 Intermittent claudication 02/19/2023 Snoring 10/23/2017 Assessment & Plan (10/23/2017 10:30 AM EDT): Given her symptoms of snoring and daytime somnolence, I advised a sleep medicine evaluation. If she has obstructive sleep apnea, treatment would decrease her risks of stroke and heart attack and improve her functional status during the day; she was counseled regarding this. She is not interested at this time, but agreed to consider discussing this further with her primary care physician at her upcoming visits. Encounter for administration of vaccine 09/07/19 18 Gastroesophageal reflux disease without esophagi tis 08/13/2017 Assessment & Plan (10/23/2017 10:00 AM EDT): Adequate control of reflux symptoms as important in the setting of underlying obstructive lung disease. Mixed hyperlipidemia 08/13/2017 Osteopenia 08/13/2017 Centrilobular emphysema 08/13/2017 Overview (10/23/2017): Normal alpha-1 antitrypsin (PI*MM). Pulmonary nodules 08/13/2017 Overview (10/23/2017): 3 mm and smaller, stable at > one year interval through 01/09/15. Assessment & Plan (10/23/2017 10:31 AM EDT): No further dedicated chest CT is indicated at this time. Pure hypercholesterolemia 08/13/2017 Respiratory bronchiolitis interstitial lung dise ase 08/13/2017 Overview (10/23/2017): Biopsy proven via left video-assisted thoracoscopic lung biopsy (Dr Cox) on 04/17/14. Assessment & Plan (10/23/2017 10:31 AM EDT): Smoking cessation was again advised strongly today. She is pre-contemplative. There is no further treatment indicated for this interstitial lung disease. Tobacco use 08/13/2017 Assessment & Plan (10/23/2017 10:31 AM EDT): See history of present illness for details. 3 minutes spent. Resolved Problems Problem Noted Date Diagnosed Date Resolved Date Frequent headaches 01/01/2018 1 Encounters Date Type Department Care Team Description 03/15/2025 Telephone [facility] Medicine [address] [place] [address] Socorro Hopkins 03/10/2025 Telephone [facility] Internal Medicine [address] [place] [address] Koko Montgomery MD Results 03/09/2025 3:21 PM EDT - 03/09/2025 11:59 PM EDT Hospital Encounter [facility] [address] [place] [address] Palma Mi PA-C Discharge Disposition: Home or Self Care 03/09/2025 3:00 PM EDT Office Visit [facility] Medicine [address] [place] [address] Palma Mi PA-C Colicky RUQ abdominal pain (Primary Dx) 03/09/2025 Telephone [facility] Internal [facility] [address] [place] [address] Koko Montgomery MD Abdominal Pain 02/27/2025 Orders Only [facility] Medicine [address] [place] [address] ProviderBernard MD 02/17/2025 9:00 AM EDT Office Visit [facility] Internal [facility] [address] [place] [address] Koko Montgomery MD Chronic maxillary sinusitis (Primary Dx); Deviated septum; Burping; Persistent asthma without complication, unspecified asthma severity; Gastroesophageal reflux disease, unspecified whether esophagitis present; Pure hypercholesterolemia 02/17/2025 Telephone [facility] Medicine [address] [place] [address] face ordered 02/16/2025 Documentation [facility] Internal [facility] [address] [place] [address] Koko Montgomery MD 02/14/2025 Telephone [facility] Internal [facility] [address] [place] [address] Koko Montgomery MD Request For Records 01/24/2025 Telephone [facility] Internal [address] [address] Koko Montgomery MD Results from Last 3 Months Immunizations Immunization Administration Dates Next Due COVID-19 (Pre-05/04) Pfizer Vaccine, mRNA, PF 2020,10/22/2020 INFLUENZA, SPLIT VIRUS, TRIV ALENT W/ PRESERVATIVE IM 05/09/2014 Influenza High-Dose Quadriva lent Preservative Free IM 03/31/2022,05/08/2020 Influenza High-Dose Trivalen t Preservative Free IM 05/10/2019,04/20/2018,05/12/2017,04/24,06/06/2015 Pneumococcal conjugate PCV13 12/11/2015 Pneumococcal polysaccharide PPSV23 09/07/2017, Td (adult) 5 Lf Tetanus Toxo id, PF, Adsorbed 12/12/2007 Family History Medical History Relation Comments Brain cancer Brother 1 Cancer Brother 1 Diabetes Brother 2 Hypertension Brother 2 COPD Brother 3 Emphysema Brother 3 Diabetes Brother 4 Prostate cancer Brother 4 Multiple sclerosis Father Stroke Father Diabetes Mother Kidney cancer Mother Benign neoplasm of pancreas Sister Cancer Sister Pancreatic cancer Sister Relation Status Comments Brother 1 of cancerLi frank in [place] Brother 2 Alive Brother 3 Alive Brother 4 Alive Father Mother Sister at 75 y/o d /t pancreatic cancer Social History Tobacco Use Types Packs/Day Years Used Date Smoking Tobacco: Every Day Cigarettes 0.7 64.8 Started: 1961 Smokeless Tobacco: Never Tobacco Cessation:Ready to Q uit: Not Asked; Counseling Given: Not Answered Comments:0.75-1 ppd-noted 02/17/25 Alcohol Use Standard Drinks/Week [...] Orientation Straight 07/24/2022 1: 57 PM EST Last Filed Vital Signs Vital Sign Reading Time Taken Comments Blood Pressure 112/70 03/09/2025 3:01 PM EDT Pulse 104 03/09/2025 3:01 PM EDT Temperature 36.2 C (97.2 F) 03/09/2025 3:01 PM EDT Respiratory Rate 16 03/09/2025 3:01 PM EDT Oxygen Saturation 97% 03/09/2025 3:01 PM EDT Inhaled Oxygen Concentration - - Weight 59 kg (130 lb) 03/09/2025 3:01 PM EDT Height 151.4 cm (4' 11.61 ) 03/09/2025 3:01 PM E DT Body Mass Index 25.73 03/09/2025 3:01 PM EDT Plan of Treatment Upcoming Encounters Date Type Department Care Team (Late st Contact Info) Description 05/04/2025 10:15 AM EDT Office Visit [facility] [address] [place] [id number] Richmond Garcia MD, MS [address] [address] [email or web address] 06/07/2025 1:00 PM EST Office Visit [facility] Medicine [address] [place] [address] Koko Montgomery MD [address] [place] [address] 12/06/2025 2:00 PM EDT Office Visit [facility] Medicine [address] [place] [address] Koko Montgomery MD [address] [place] [address] [email or web address] 05/15/2026 1:20 PM EST Office Visit [facility] [address] [place] [address] Palma Mi PA-C [address] [place] [address] [email or web address] Health Maintenance Due Date Last Done Comments COLOGUARD 1994 FIT TEST 1994 FOBT 1994 SIGMOIDOSCOPY 1994 VIRTUAL COLONOSCOPY 1994 ZOSTER VACCINES (1 of 2) 11/13/1999 Adult Td,Tdap Booster 12/11/2017 12/12/2007 RSV VACCINE (1 - 1-dose 75+ series) 2024 LUNG CANCER SCREENING (LDCT Only) 01/18/2025 01/19/2024, 01/19/2024, 10/22/2022, Additional history exists INFLUENZA VACCINE (#1) 2025 , 05/08/2020, 05/10/2019, Additional history exists COVID-19 VACCINE ( season) 2025 2020, 10/22/2020 BLOOD PRESSURE 09/09/2025 03/09/2025 LIPID PANEL 11/02/2025 11/02/2024, 03/0 07/2023, 05/06/2023, Additional history exists DEPRESSION SCREENING 12/02/2025 12/02/2024, 12/03/19 25 CREATININE LEVEL 03/09/2026 03/09/2025, , 03/02/2024, Additional history exists POTASSIUM LEVEL 03/09/2026 03/09/2025, 04/2 09/2024, 03/02/2024, Additional history exists SMOKING Hx and SMOKELESS TOBACCO SCREENING 03/09/2026 03/09/2025 COLONOSCOPY 03/10/2032 03/10/2022, 06/0 12/2012, 12/16/2010 COLORECTAL CANCER SCREENING 03/10/2032 PNEUMOCOCCAL VACCINES (50+ years) Completed 09/07/2017, 12/11/2015, 05/03/2013 HEPATITIS C SCREENING Completed 09/16/2018 OSTEOPOROSIS SCREENING INITIAL (ONE-TIME) Completed 06/24/2022, 10/19/2018 HEPATITIS A VACCINES Aged Out No long er eligible based on patient's age to complete this topic HIB VACCINES Aged Out No longer eligi ble based on patient's age to complete this topic MENINGOCOCCAL VACCINES (ACWY) Aged Out No longer eligible based on patient's age to complete this topic MENINGOCOCCAL VACCINES (B) Aged Out N o longer eligible based on patient's age to complete this topic Medical Devices Not on file Procedures Procedure Name Priority Date/Time Associated Diagnosis Comments US ABDOMEN LIMITED Routine 03/14/2025 1: 15 PM EDT Colicky RUQ abdominal pain COMPREHENSIVE METABOLIC PANEL Routine 03/09/2025 3:29 PM EDT Colicky RUQ abdominal pain OUTSIDE IMAGING Routine 02/21/2025 9:[address] FACE Routine 02/17/2025 9:39 AM EDT Chronic maxillary sinusitis Deviated septum LIPID PANEL Routine 11/02/2024 8:50 AM EDT Mixed hyperlipidemia LDCT PROCEDURE FOR RESULT ENTRY ONLY Routine 01/19/2024 1:11 PM EDT DEXA SCAN Routine 06/24/2022 COLONOSCOPY FOR RESULT ENTRY ONLY Routine 03/10/2022 HEPATITIS C ANTIBODY, QUALITATIVE Routine 09/16/2018 9:08 AM EST Need for hepatitis C screening test from Last 3 Months or Most Recently Relevant to Health Maintenance Results * (ABNORMAL) Comprehensive metabolic panel (03/09/2025 3:29 PM EDT) SODIUM 138 133 - 146 mmol/L [facility] POTASSIUM 4.3 3.3 - 5.1 mmol/L [facility] CHLORIDE 102 96 - 108 mmol/L [facility] CO2 23 21 - 35 mmol/L [facility] BUN 24(H) 6 - 19 mg/dL [facility] CREATININE 1.10 0.5 - 1.5 mg/dL [facility] GLUCOSE 125(H) 70 - 99 mg/dL [facility] ALBUMIN 4.1 3.9 - 4.8 g/dL [facility] TOTAL PROTEIN 7.1 6.5 - 8.0 g/dL [facility] CALCIUM 9.5 8.4 - 10.3 mg/dL [facility] ALKALINE PHOSPHATASE 113 39 - 117 U/L [facility] TOTAL BILIRUBIN <0.2 0.0 - 1.2 mg/dL [facility] AST 19 0 - 37 U/L [facility] ALT 12 0 - 40 U/L [facility] GLOBULIN 3.0 1 - 4.8 g/dL [facility] EGFR 52(L) >59 mL/min/1.7 3m2 [facility] Comment:Estimated glomerular filtration rate calculated using the CKD-EPI refit equation. ANION GAP 17 10 - 20 mmol/L [facility] Blood 03/09/2025 3:29 PM EDT 03/09/2025 3:33 PM EDT Palma Mi PA-C LAB BLOOD ORDERABLES Final R esult [address] [address] * Outside Imaging Report Only (02/21/2025 9:00 AM EDT) Historical Provider [email or web address] XR CHEST Final Res ult * (ABNORMAL) Lipid panel (11/02/2024 8:50 AM EDT) HDL 65 mg/dL [facility] Comment: Interpretation <40 mg/dL: Low HDL cholesterol (major risk factor for CHD) Greater than or equal to 60 mg/dL: High HDL cholesterol ( negative risk factor for CHD) HDL - cholesterol is affected by a number of factors, e.g. smoking, excerise, hormones, sex and age. CHOLESTEROL 190 0 - 240 mg/dL [facility] TRIGLYCERIDES 136 30 - 160 mg/dL [facility] LDL 98 50 - 129 mg/dL [facility] Comment: LDL levels in terms of risk for coronary heart disease: <100 mg/dL: Optimal 100-129 mg/dL: Near or above optimal 130-159 mg/dL: Borderline high 160-189 mg/dL: High >190 mg/dL: Very High CARDIAC RISK RATIO 2.9(L) 3.3 - 4.4 C [facility] Blood 11/02/2024 8:50 AM EDT 11/02/2024 8:55 AM EDT us Koko Montgomery MD LAB BLOOD ORDERABLES Final Re sult Performing Organization Address [facility]/ZIP Co de Phone Number [address] [address] * LDCT PROCEDURE FOR RESULT ENTRY ONLY (01/19/2024 1:11 PM EDT) us Cheli [facility] Edited Re sult - Final * DEXA SCAN (06/24/2022) us Koko Montgomery MD HEALTH MAINTENANCE Edited Res ult - Final * COLONOSCOPY FOR RESULT ENTRY ONLY (03/10/2022) Bernard Huang MD HEALTH MAINTENANCE Edited Result - Final * Hepatitis C antibody, qualitative (09/16/2018 9:08 AM EST) HCV Negative Negative [facility] Comment: This is a screening test and should be confirmed with molecular testing Blood 09/16/2018 9:08 AM EST 09/16/2018 9:12 AM EST us Koko Montgomery MD LAB BLOOD ORDERABLES Final Re sult Performing Organization Address [facility]/ZIP Co de Phone Number [address] [phone] from Last 3 Months or Most Recently Relevant to Health Maintenance Insurance [employer] RE[employer] [facility] MEDIC[facility] PREFERRED HMO REPLACEMENT Care Teams Environmental Conservation Professor Relationship Specialty Start Date End Date Koko Montgomery MD [address] [place] [address] [email or web address] PCP - General 04/28/17 Additional Source Comments The information contained in this document represents components of the legal health record. It is not the complete legal health record.[facility]
== END 2025-04-18 09:47 | disposition home or self-care (01) ==
LOC: HO.CT 09:46
PROVIDERS: PCP Internal Medicine; Visit Provider Internal Medicine
DX: J32.0 Chronic maxillary sinusitis (principal); J34.2 Deviated nasal septum
CPT/HCPCS: 70486

== ENCOUNTER → 2025-04-18 09:48 | Outpatient (BNV) | payer MEDICARE, SELFPAY | PROVIDERS: PCP Internal Medicine; Visit Provider Radiology Diagnostic Radiology | DX: J34.2 Deviated nasal septum (principal) | CPT/HCPCS: 70486 ==